=== PATIENT | male | born 1995 | race Caucasian/White ===

== ENCOUNTER → 2020-08-31 12:12 | Outpatient (BNVA) | payer OTHER, SELFPAY | PROVIDERS: PCP Internal Medicine; Visit Provider Physician Assistant ==

== ENCOUNTER 2020-10-02 00:15 | Emergency (ER) | payer OTHER, SELFPAY ==
[2020-10-02 00:23] VITALS: BP 133/81; PULSE 110; RESP 18; TEMP 37.6; O2SAT 97; BMI 24.1
--- NOTE | 2020-10-02 00:26 | ED.URI ---
HPI - URI/Sore Throat General Chief Complaint: General Medical Stated Complaint: FLU LIKE SYMPTOMS Time Seen by Provider: 10/02/20 00:22 Source: patient Mode of arrival: ambulatory Limitations: no limitations History of Present Illness HPI Narrative: 25 yo male hx of asthma here wtih 3 days of headaches, fevers, body aches, cough was COVID positive but asymptomatic in January MD elicited complaint: fever and cough Pertinent past history: asthma Onset (ago): day(s) (3) Consistency: constant Severity: moderate Description of mucous: clear Able to tolerate fluids by mouth: Yes Exacerbating factors: nothing Relieving factors: nothing Associated symptoms: fever, chills, myalgias, headache and cough Treatments prior to arrival: none Related Data Home Medications Medication Instructions Recorded Confirmed ondansetron 4 mg disintegrating 4 mg PO TID PRN 08/07/20 08/31/20 tablet sumatriptan succinate 25 mg tablet 25 mg PO 08/07/20 08/31/20 fluticasone propionate 110 1 puff INHALATION BID 08/11/20 08/31/20 mcg/actuation HFA aerosol inhaler Previous Rx's Medication Instructions Recorded montelukast 10 mg tablet 10 mg PO BEDTIME #30 tab 07/23/20 cetirizine 10 mg tablet 10 mg PO DAILY PRN #30 tab 08/11/20 fluticasone propionate 110 1 puff PO BID #12 g 08/11/20 mcg/actuation HFA aerosol inhaler methylcellulose (laxative) 500 mg 500 mg PO BID #60 tab 08/31/20 tablet albuterol sulfate 90 mcg/actuation 2 puff PO Q6H PRN #8.5 g 09/14/20 aerosol inhaler omeprazole 20 mg capsule,delayed 20 mg PO DAILY 30 Days #30 cap 09/14/20 release zolpidem 10 mg tablet 10 mg PO BEDTIME PRN 30 Days #30 09/14/20 tab lorazepam 1 mg tablet 1 mg PO DAILY PRN 30 Days #30 tab 09/25/20 Allergies Allergy/AdvReac Type Severity Reaction Status Date / Time methylprednisolone Allergy Unknown UNKNOWN Verified 10/02/20 00:26 [Methylprednisolone] Penicillins [PENICILLINS] Allergy Unknown RASH Verified 10/02/20 00:26 amitriptyline AdvReac Unknown increased Verified 10/02/20 00:26 headaches metoclopramide [From REGLAN] AdvReac Unknown RASH Verified 10/02/20 00:26 trazodone AdvReac Unknown increased Verified 10/02/20 00:26 headaches Review of Systems Review of Systems: Constitutional : positive Fever, positive Chills, positive fatigue, positive Malaise ENT/Mouth : no sore throat, positive runny nose Eyes: No Discharge Cardiovascular : No Chest Pain, No SOB Respiratory : pos Cough, No Sputum Gastrointestinal : No Nausea, No Vomiting, No Diarrhea Genitourinary : No Dysuria, No Urinary Frequency Musculoskeletal : positive Myalgia Skin : No rash Neuro : pos Headache [facility] Past Medical History Attestation statement: The following information was validated with the patient. Medical History Acid reflux Allergic rhinitis Anxiety Asthma Insomnia Intermittent abdominal pain Migraine Surgical History History of appendectomy Family History Family History (Updated 08/31/20 @ 12:11 by Deirdre Coy) Father Asthma Mother Fibromyalgia HTN (hypertension) Social History Social History Household Members: Family Alcohol intake: current Alcohol intake frequency: holidays/special occasions only Smoking Status: Never smoker Advance Directives: No Physical Exam Vital Signs: Vital Signs: Last Vital Signs Temp 99.6 F 10/02/20 00:23 Pulse 110 H 10/02/20 00:23 Resp 18 10/02/20 00:23 BP 133/81 10/02/20 00:23 Pulse Ox 97 10/02/20 00:23 Body Mass Index 24.1 Appearance: Alert. Oriented X3. No acute distress. Eyes: Pupils equal, round and reactive to light. ENT: Pharynx normal. Neck: Normal inspection. Neck supple. CVS: Normal heart rate and rhythm. Pulses normal. Respiratory: No respiratory distress. Breath sounds normal. Abdomen: Soft and nontender. Skin: Skin warm and dry. Normal skin color. Normal skin turgor. Extremities: No lower extremity edema. No calf ttp Neuro: Oriented X 3. No motor deficit. No sensory deficit. Course Course Course Narrative: patient called with his results aware they are negative MDM - URI/Sore Throat MDM Narrative Medical decision making narrative: 25 yo male with asthma here with headaches, body aches, fevers, cough x 3 days - hx of COVID in january, clear lungs, no hypoxia, tylenol and sars/flu/rsv test will call with results Lab Data Labs: Lab Results 10/02/20 Range/Units 00:35 Coronavirus (PCR) NEGATIVE (Negative) Influenza Type A (PCR) NEGATIVE (Negative) Influenza Type B (PCR) NEGATIVE (Negative) RSV RNA Qual (PCR) NEGATIVE (Negative) Discharge Plan Discharge Clinical Impression: Acute viral syndrome Patient Disposition: Home, Self-Care Instructions: Viral Syndrome (ED), COVID-19 (Coronavirus Disease 2019) (ED) Additional Instructions: return to ED for any worsening symptoms or concerns I will call you with your results Prescriptions: No Action montelukast 10 mg tablet 10 mg PO BEDTIME Qty: 30 RF: 3 Flovent HFA 110 mcg/actuation HFA aerosol inhaler 1 puff inhalation BID RF: 0 cetirizine 10 mg tablet 10 mg PO DAILY PRN (Reason: allergy symptoms) Qty: 30 RF: 5 fluticasone propionate [Flovent HFA] 110 mcg/actuation HFA aerosol inhaler 1 puff PO BID Qty: 12 RF: 0 zolpidem 10 mg tablet 10 mg PO BEDTIME PRN (Reason: insomnia) 30 Days Qty: 30 RF: 0 omeprazole 20 mg capsule,delayed release(DR/EC) 20 mg PO DAILY 30 Days Qty: 30 RF: 3 albuterol sulfate 90 mcg/actuation HFA aerosol inhaler 2 puff PO Q6H PRN (Reason: for wheezing) Qty: 8.5 RF: 1 lorazepam 1 mg tablet 1 mg PO DAILY PRN (Reason: anxiety) 30 Days Qty: 30 RF: 0 ondansetron 4 mg tablet,disintegrating 4 mg PO TID PRN (Reason: nausea/vomiting) RF: 0 sumatriptan succinate 25 mg tablet 25 mg PO RF: 0 Citrucel 500 mg tablet 500 mg PO BID Qty: 60 RF: 5 Stand Alone Forms: Work/School Release Interventions: ED Discharge Assessment Last Done: 10/02/20 00:51 Discharge Date/Time: 10/02/20 00:52
[2020-10-02] MEDS: Acetaminophen 325 MG TABLET 650 MG PO (00:52)
[2020-10-02 01:21] LABS: Influenza A PCR NEGATIVE (Negative); Influenza B PCR NEGATIVE (Negative); Resp Syncy Virus RNA Qual PCR NEGATIVE (Negative); SARS COV2 PCR INHOUSE NEGATIVE (Negative)
== END 2020-10-02 00:52 | disposition home or self-care (01) ==
LOC: HO.ED 00:43
PROVIDERS: Emergency Provider Emergency Medicine; PCP Internal Medicine
DX: B34.9 Viral infection, unspecified (principal); Z20.822 Contact with and (suspected) exposure to COVID-19; R50.9 Fever, unspecified; J45.909 Unspecified asthma, uncomplicated
CPT/HCPCS: 0241U; 36415; 99283

== ENCOUNTER 2020-12-19 14:16 | Emergency (ER) | payer OTHER, SELFPAY ==
--- NOTE | ~2020-12-19 | XR_ITS ---
EXAMINATION: XR CHEST CLINICAL INFORMATION: Shortness of breath COMPARISON: Previous chest x-ray December 2019 TECHNIQUE: Frontal view of the chest was obtained. FINDINGS: No significant abnormality is noted involving the heart, lungs, mediastinum, bony thorax or soft tissues. XR/XR chest 1V IMPRESSION: Unremarkable examination.
[2020-12-19 15:06] VITALS: BP 133/73; PULSE 100; RESP 16; TEMP 35.9; O2SAT 100; BMI 22.4
--- NOTE | 2020-12-19 16:57 | ED_ITS ---
HPI - Asthma General Chief Complaint: Asthma Stated Complaint: ASTHMA Time Seen by Provider: 12/19/20 16:56 Source: patient, RN notes reviewed and old records reviewed Mode of arrival: ambulatory Limitations: no limitations History of Present Illness HPI Narrative: 25-year-old male with past medical history of acid reflux, anxiety, insomnia, migraine, allergic rhinitis is here today for complaining of pain when taking a deep breath, postnasal drip. Reports that those symptoms started few days ago. Patient has a history of seasonal allergies. His symptoms include decreased renal inner aggravated by pollen. Denies fever or chills. Denies any exposure to COVID. Denies SOB, CP. Related Data Home Medications Medication Instructions Recorded Confirmed fluticasone propionate 110 1 puff INHALATION BID 08/11/20 08/31/20 mcg/actuation HFA aerosol inhaler Previous Rx's Medication Instructions Recorded montelukast 10 mg tablet 10 mg PO BEDTIME #30 tab 07/23/20 cetirizine 10 mg tablet 10 mg PO DAILY PRN #30 tab 08/11/20 methylcellulose (laxative) 500 mg 500 mg PO BID #60 tab 08/31/20 tablet albuterol sulfate 90 mcg/actuation 2 puff PO Q6H PRN #8.5 g 09/14/20 aerosol inhaler omeprazole 20 mg capsule,delayed 20 mg PO DAILY 30 Days #30 cap 09/14/20 release fluticasone propionate 110 1 puff PO BID 30 Days #12 g 10/11/20 mcg/actuation HFA aerosol inhaler sumatriptan succinate 25 mg tablet 25 mg PO .COMPLEX #10 tab 11/05/20 ondansetron 4 mg disintegrating 4 mg PO TID PRN 30 Days #90 tab 11/13/20 tablet lorazepam 1 mg tablet 1 mg PO DAILY PRN 30 Days #30 tab 12/06/20 zolpidem 10 mg tablet 10 mg PO BEDTIME PRN 30 Days #30 12/11/20 tab benzonatate [Tessalon Perles] 100 mg PO BID PRN #20 cap 12/19/20 fluticasone propionate [Aller-Alejandro] 1 spray INTRANASAL DAILY #16 g 12/19/20 Allergies Allergy/AdvReac Type Severity Reaction Status Date / Time methylprednisolone Allergy Unknown UNKNOWN Verified 10/02/20 00:26 [Methylprednisolone] Penicillins [PENICILLINS] Allergy Unknown RASH Verified 10/02/20 00:26 amitriptyline AdvReac Unknown increased Verified 10/02/20 00:26 headaches metoclopramide [From REGLAN] AdvReac Unknown RASH Verified 10/02/20 00:26 trazodone AdvReac Unknown increased Verified 10/02/20 00:26 headaches Review of Systems Review of Systems: Constitutional : No Weight loss, No Fever, No Chills, No Night Sweats, No Fatigue, No Malaise ENT/Mouth : No Hearing loss, No Ear Pain, No Nasal Congestion, No Sinus Pain, No Hoarseness, No sore throat, Rhinorrhea, No Swallowing Difficulty Eyes: No Eye Pain, No Swelling, No Redness, No Foreign Body, No Discharge, No Vision Changes Cardiovascular : No Chest Pain, No SOB, No Dyspnea on Exertion, No Orthopnea, No Edema, No Palpitations Respiratory : Cough, No Sputum, No Wheezing, No Smoke Exposure, No Dyspnea Gastrointestinal : No Nausea, No Vomiting, No Diarrhea, No Constipation, No abdominal Pain, No Hematochezia, No Melena Genitourinary : no irregular bleeding, No Dysuria, No Urinary Frequency, No Hematuria, No Urinary Incontinence, No Urgency, No Flank Pain, No Urinary Flow Changes, No Hesitancy Musculoskeletal : No joint pain, No Myalgias, No Joint Swelling Skin : No Skin Lesions, No rash Neuro : No Weakness, No Numbness, No Paresthesias, No Loss of Consciousness, No Dizziness, No Headache Psych : No Anxiety/Panic, No Depression, No SI/HI/AH/VH, No Social Issues, Heme/Lymph: No Bruising, No Bleeding,No Lymphadenopathy Endocrine : No Polyuria, No Polydipsia, No Temperature Intolerance Yes all o ther systems are reviewed and are negative [facility] Past Medical History Medical History Acid reflux Allergic rhinitis Anxiety Asthma Insomnia Intermittent abdominal pain Migraine Surgical History History of appendectomy Family History Family History (Updated 08/31/20 @ 12:11 by LUIS FELIPE Aceves) Father Asthma Mother Fibromyalgia HTN (hypertension) Social History Social History Household Members: Family Alcohol intake: never Smoking Status: Never smoker Use of substances other than those prescribed or required for medical reasons: No Advance Directives: No Advance Directives Information Provided: Yes Physical Exam Vital Signs: Vital Signs: Last Vital Signs Temp 97.6 F 12/19/20 17:08 Pulse 85 12/19/20 17:08 Resp 16 12/19/20 17:08 BP 122/67 12/19/20 17:08 Pulse Ox 98 12/19/20 17:08 Body Mass Index 22.4 Const: General: healthy appearing, no acute distress and well developed Nutritional Appearance: well nourished Orientation/consciousness: patient oriented x3 HENMT: Head: Yes normal to inspection and Yes normocephalic Ears: external ears normal and TM's normal bilaterally General nose exam: Normal external nose present, Normal nares present and Normal nasal mucous membranes and turbinates present Face and sinus: Yes sinuses nontender and Yes face symmetric Mouth: tongue normal, oropharynx normal and moist mucous membranes Throat: Yes posterior oropharynx normal, Yes tonsils normal and Yes uvula midline Neck: Neck: Yes normal visual inspection, Yes full ROM and Yes trachea midline Thyroid: Thyroid normal Resp: Auscultation: clear to auscultation bilaterally Cardio: Rate: regular rate Rhythm: regular rhythm GI: Inspection: Yes normal to inspection and No distended Palpation (GI): No hepatosplenomegaly present Auscultation: normal bowel sounds Skin: General skin exam: elasticity normal, turgor normal and dry skin Neuro: General: patient oriented x3 Course Course Course Narrative: 25-year-old with past medical history of acid reflux, anxiety, insomnia, migraine headaches, allergic rhinitis and asthma here for complaints of shortness of breath, pain with deep inspiration Reevaluation(s) Reevaluation #1: Chest x-ray normal. Will do COVID testing and if that is normal will send him home with script for Tessalon Perles and Flonase. Patient is agreeable to plan of care, awaiting results from COVID test Reevaluation #2: COVID test negative, lung sounds clear no change in patient's condition. Will send him home as mentioned above with Tessalon Perles and Flonase. Patient was educated on how to take the medications. He verbalizes understanding and is agreeable to plan of care. He was given the opportunity to ask questions and all questions answered. MDM - Asthma Lab Data Labs: Lab Results 12/19/20 Range/Units 17:06 Coronavirus (PCR) NEGATIVE (Negative) Influenza Type A (PCR) NEGATIVE (Negative) Influenza Type B (PCR) NEGATIVE (Negative) RSV RNA Qual (PCR) NEGATIVE (Negative) Imaging Data Chest x-ray: Radiologist's impression: FINDINGS: No significant abnormality is noted involving the heart, lungs, mediastinum, bony thorax or soft tissues. XR/XR chest 1V IMPRESSION: Unremarkable examination. Discharge Plan Discharge Clinical Impression: Allergic rhinitis Qualifiers: Allergic rhinitis trigger: pollen Allergic rhinitis seasonality: seasonal Qualified Code(s): J30.1 - Allergic rhinitis due to pollen Asthma Qualifiers: Asthma severity: mild Asthma persistence: unspecified Asthma complication type: uncomplicated Qualified Code(s): J45.909 - Unspecified asthma, uncomplicated Patient Disposition: Home, Self-Care Instructions: Asthma (ED), Allergic Rhinitis (ED) Additional Instructions: You were seen here today for complaints of shortness of breath and cold-like symptoms. Your chest x-ray is negative. Your COVID test is negative. You are sent home with a script for Flonase and Tessalon Perles. Please take it as ordered. Please follow-up with your primary care physician in 2-3 days. You may return to emergency department if you symptoms will get worse or if you experience any additional concerning symptoms Prescriptions: New benzonatate [Tessalon Perles] 100 mg capsule 100 mg PO BID PRN (Reason: cough) Qty: 20 RF: 0 fluticasone propionate [Aller-Alejandro] 50 mcg/actuation spray,suspension 1 spray intranasal DAILY Qty: 16 RF: 0 No Action montelukast 10 mg tablet 10 mg PO BEDTIME Qty: 30 RF: 3 Flovent HFA 110 mcg/actuation HFA aerosol inhaler 1 puff inhalation BID RF: 0 cetirizine 10 mg tablet 10 mg PO DAILY PRN (Reason: allergy symptoms) Qty: 30 RF: 5 omeprazole 20 mg capsule,delayed release(DR/EC) 20 mg PO DAILY 30 Days Qty: 30 RF: 3 albuterol sulfate 90 mcg/actuation HFA aerosol inhaler 2 puff PO Q6H PRN (Reason: for wheezing) Qty: 8.5 RF: 1 Flovent HFA 110 mcg/actuation HFA aerosol inhaler 1 puff PO BID 30 Days Qty: 12 RF: 5 sumatriptan succinate 25 mg tablet 25 mg PO .COMPLEX Qty: 10 RF: 5 ondansetron 4 mg tablet,disintegrating 4 mg PO TID PRN (Reason: nausea/vomiting) 30 Days Qty: 90 RF: 1 lorazepam 1 mg tablet 1 mg PO DAILY PRN (Reason: anxiety) 30 Days Qty: 30 RF: 0 zolpidem 10 mg tablet 10 mg PO BEDTIME PRN (Reason: insomnia) 30 Days Qty: 30 RF: 0 Citrucel 500 mg tablet 500 mg PO BID Qty: 60 RF: 5 Interventions: ED Discharge Assessment Last Done: 12/19/20 19:09 Discharge Date/Time: 12/19/20 19:10
[2020-12-19] MEDS: Ibuprofen 600 MG TABLET PO (17:07)
[2020-12-19 17:08] VITALS: BP 122/67; PULSE 85; RESP 16; TEMP 36.4; O2SAT 98
[2020-12-19 17:53] LABS: Influenza A PCR NEGATIVE (Negative); Influenza B PCR NEGATIVE (Negative); Resp Syncy Virus RNA Qual PCR NEGATIVE (Negative); SARS COV2 PCR INHOUSE NEGATIVE (Negative)
== END 2020-12-19 19:10 | disposition home or self-care (01) ==
PROVIDERS: Nurse Practitioner Family; Emergency Provider Internal Medicine; PCP Internal Medicine
DX: J45.909 Unspecified asthma, uncomplicated (principal); J30.1 Allergic rhinitis due to pollen; Z20.822 Contact with and (suspected) exposure to COVID-19
CPT/HCPCS: 0241U; 36415; 71045; 99283; 99284

== ENCOUNTER 2020-12-27 11:49 | Outpatient (REF) | payer OTHER, SELFPAY ==
[2020-12-27 13:04] LABS: MANUAL DIFF FLAG NO
[2020-12-27 13:09] LABS: Basophils Percent Auto 0.3 % (0-2); Eosinophils Percent Auto 0.4 % (0-4); Hematocrit 45.9 % (42-52); Hemoglobin 15.5 g/dl (14.0-18.0); Imm Gran Abs Auto 0.01 X10*3/uL (0.00-0.03); Imm Gran Pct Auto 0.1 % (0.0-0.4); Lymphocytes Absolute Auto 2.6 X10*3/uL (1.2-4.9); Mean Corpuscular HGB Conc 33.8 g/dl (31.0-36.0); Monocytes Absolute Auto 0.5 X10*3/uL (0.1-1.2); Monocytes Percent Auto 6.4 % (2-11); Neutrophils Absolute Auto 4.3 X10*3/uL (2.0-8.3); Neutrophils Percent Auto 57.8 % (45-73); Platelet Count 272 X10*3/uL (160-400); Red Blood Count 5.34 X10*6/uL (4.60-5.80); White Blood Count 7.4 X10*3/uL (4.8-10.8)
[2020-12-27 13:17] LABS: Glucose Urine UA NEG (NEG); Leukocyte Esterase Urine NEG (NEG); Nitrite Urine NEG (NEG); Specific Gravity - Urine >= 1.030 (1.005-1.025); Urine Blood TRACE (NEG); Urine Ketones NEG (NEG); Urine Protein NEG (NEG-TRACE)
[2020-12-27 13:18] LABS: Appearance Urine CLEAR; Color Urine YELLOW
[2020-12-27 13:59] LABS: Alanine Aminotransferase 30 U/L (0-40); Alkaline Phosphatase 111 U/L (39-117); Anion Gap 14 (12-20); Aspartate Amino Transferase 20 U/L (5-37); Bilirubin Total 0.8 mg/dL (0.0-1.0); Blood Urea Nitrogen 10 mg/dL (9-16); Calcium 10.1 mg/dL (8.4-10.2); Carbon Dioxide 27 mmol/L (22-29); Chloride 102 mmol/L (96-108); Cholesterol 228 mg/dL; Estimated Glomerular Filt Rate > 60; Glucose Fasting 78 mg/dL (60-99); HDL Cholesterol 49 mg/dL; LDL Cholesterol Calculated 162 mg/dl; Sodium 139 mmol/L (135-145); Total Protein 8.1 g/dL (6.5-8.0); Triglycerides 85 mg/dL
[2020-12-27 14:02] LABS: Mucus Urine 1+ /LPF; RBC Urine 0-2 /HPF (0); WBC Urine 0-2 /HPF (0-4)
[2020-12-27 14:14] LABS: Erythrocyte Sedimentation Rate 4 MM/HR (0-15)
[2020-12-27 14:21] LABS: TSH reflex Free T4 3.05 uIU/mL (0.32-4.0)
== END 2020-12-27 11:50 | disposition home or self-care (01) ==
LOC: HO.LAB 11:49
PROVIDERS: Absent Provider Physician Assistant; PCP Internal Medicine; Visit Provider Internal Medicine
DX: Z00.00 Encounter for general adult medical examination without abnormal findings (principal); E78.00 Pure hypercholesterolemia, unspecified; R19.7 Diarrhea, unspecified; R10.11 Right upper quadrant pain; I10 Essential (primary) hypertension
CPT/HCPCS: 36415; 80053; 80061; 81001; 81003; 84443; 85025; 85652

== ENCOUNTER 2020-12-29 02:22 | Emergency (ER) | payer OTHER, SELFPAY ==
[2020-12-29 02:43] VITALS: BP 136/68; PULSE 83; RESP 16; TEMP 35.9; O2SAT 98; BMI 22.5
[2020-12-29 04:00] VITALS: RESP 18
--- NOTE | 2020-12-29 04:21 | ED.EAR ---
HPI - Ear Problem General Chief complaint: Ear Problems Stated complaint: Ear pain Time Seen by Provider: 12/29/20 04:21 Source: patient Mode of arrival: ambulatory History of Present Illness HPI Narrative: This is a 25-year-old male who presents with decreased hearing in the left ear and known cerumen who saw his primary care provider earlier in the day yesterday and was prescribed murine 6.5% ear solution. He states that he used it a number of times in both ears and had complete resolution of the problem in his right ear, but continues to have difficulty with the left ear. He denies any dizziness, fevers, chills, or left ear pain. Related Data Previous Rx's Medication Instructions Recorded cetirizine 10 mg tablet 10 mg PO DAILY PRN #30 tab 08/11/20 methylcellulose (laxative) 500 mg 500 mg PO BID #60 tab 08/31/20 tablet omeprazole 20 mg capsule,delayed 20 mg PO DAILY 30 Days #30 cap 09/14/20 release fluticasone propionate 110 1 puff PO BID 30 Days #12 g 10/11/20 mcg/actuation HFA aerosol inhaler sumatriptan succinate 25 mg tablet 25 mg PO .COMPLEX #10 tab 11/05/20 lorazepam 1 mg tablet 1 mg PO DAILY PRN 30 Days #30 tab 12/06/20 zolpidem 10 mg tablet 10 mg PO BEDTIME PRN 30 Days #30 12/11/20 tab benzonatate [Tessalon Perles] 100 mg PO BID PRN #20 cap 12/19/20 fluticasone propionate [Aller-Alejandro] 1 spray INTRANASAL DAILY #16 g 12/19/20 albuterol sulfate 90 mcg/actuation 2 puff PO Q6H PRN #8.5 g 12/22/20 aerosol inhaler montelukast 10 mg tablet 10 mg PO DAILY #30 tab 12/22/20 carbamide peroxide 6.5 % ear drops 5 drp OTIC (EARS) DAILY 7 Days #18 12/27/20 ml ondansetron 4 mg disintegrating 4 mg PO TID PRN 30 Days #90 tab 12/27/20 tablet Allergies Allergy/AdvReac Type Severity Reaction Status Date / Time methylprednisolone Allergy Unknown UNKNOWN Verified 12/27/20 16:47 [Methylprednisolone] Penicillins [PENICILLINS] Allergy Unknown RASH Verified 12/27/20 16:47 amitriptyline AdvReac Unknown increased Verified 12/27/20 16:47 headaches metoclopramide [From REGLAN] AdvReac Unknown RASH Verified 12/27/20 16:47 trazodone AdvReac Unknown increased Verified 12/27/20 16:47 headaches Review of Systems Review of Systems: Pertinent positives and negatives as stated in HPI 10 point review of systems is otherwise negative. [facility], [facility] Past Medical History Source: nursing notes reviewed Medical History Acid reflux Allergic rhinitis Anxiety Asthma Impacted cerumen of both ears Insomnia Intermittent abdominal pain Migraine Surgical History History of appendectomy Family History Family History Father Asthma Mother Fibromyalgia HTN (hypertension) Social History Social History Household Members: Family Alcohol intake: never Patient Tobacco Use Status: Never used Tobacco Advance Directives: No Advance Directives Information Provided: No Physical Exam Vital Signs: Vital Signs: Last Vital Signs Temp 96.7 F L 12/29/20 02:43 Pulse 83 12/29/20 02:43 Resp 16 12/29/20 02:43 BP 136/68 12/29/20 02:43 Pulse Ox 98 12/29/20 02:43 Body Mass Index 22.5 VITAL SIGNS: Reviewed. GENERAL: Well developed, well nourished, in no acute distress. HEAD: Normocephalic/atraumatic EYES: PERRLA, EOMI EARS: Ext canals without abnormality other than left with cerumen unable to evaluate TM on left ear NOSE: Nares patent bilateral OROPHARYNX: no oral lesions noted, posterior pharynx clear NECK: Supple, no adenopathy LUNGS: Normal breath sounds. No adventitious sounds or accessory muscle use. SpO2<98> CARDIOVASCULAR: Regular rate and rhythm without noted murmurs ABDOMEN: Soft, non-tender, non-distended with bowel sounds. Course Course Course Narrative: 25-year-old male with history and clinical presentation consistent with cerumen of the left ear and subsequent decrease in hearing. Patient was strongly encouraged and reassured that he should continue the murine solution as prescribed by his primary care provider over the weekend and pursue re-evaluation by his PCP on Friday if he does not have any resolution. Discharge Plan Discharge Clinical Impression: Impacted cerumen of left ear Patient Disposition: Home, Self-Care Additional Instructions: 1. Please continue to use the Murine 6.5% solution as instructed by your PCP. 2. Please seek re-evaluation by her PCP on Friday morning if the cerumen from your left ear has not been relieved. Return to the ER for any acute worsening of symptoms. Prescriptions: No Action cetirizine 10 mg tablet 10 mg PO DAILY PRN (Reason: allergy symptoms) Qty: 30 RF: 5 omeprazole 20 mg capsule,delayed release(DR/EC) 20 mg PO DAILY 30 Days Qty: 30 RF: 3 Flovent HFA 110 mcg/actuation HFA aerosol inhaler 1 puff PO BID 30 Days Qty: 12 RF: 5 sumatriptan succinate 25 mg tablet 25 mg PO .COMPLEX Qty: 10 RF: 5 lorazepam 1 mg tablet 1 mg PO DAILY PRN (Reason: anxiety) 30 Days Qty: 30 RF: 0 zolpidem 10 mg tablet 10 mg PO BEDTIME PRN (Reason: insomnia) 30 Days Qty: 30 RF: 0 albuterol sulfate [ProAir HFA] 90 mcg/actuation HFA aerosol inhaler 2 puff PO Q6H PRN (Reason: for wheezing) Qty: 8.5 RF: 1 montelukast 10 mg tablet 10 mg PO DAILY Qty: 30 RF: 2 benzonatate [Tessalon Perles] 100 mg capsule 100 mg PO BID PRN (Reason: cough) Qty: 20 RF: 0 fluticasone propionate [Aller-Alejandro] 50 mcg/actuation spray,suspension 1 spray intranasal DAILY Qty: 16 RF: 0 ondansetron 4 mg tablet,disintegrating 4 mg PO TID PRN (Reason: nausea/vomiting) 30 Days Qty: 90 RF: 1 carbamide peroxide [Debrox] 6.5 % drops 5 drp otic (ears) DAILY 7 Days Qty: 18 RF: 2 Citrucel 500 mg tablet 500 mg PO BID Qty: 60 RF: 5 Referrals: Jovan Mac MD [Primary Care Provider] - 2 days
== END 2020-12-29 05:24 | disposition home or self-care (01) ==
PROVIDERS: Emergency Provider Student in an Organized Health Care Education/Training Program; PCP Internal Medicine
DX: H61.22 Impacted cerumen, left ear (principal); J45.909 Unspecified asthma, uncomplicated; F41.9 Anxiety disorder, unspecified; Z79.899 Other long term (current) drug therapy
CPT/HCPCS: 99282; 99283

== ENCOUNTER 2021-01-27 23:02 | Emergency (ER) | payer OTHER, SELFPAY ==
--- NOTE | ~2021-01-27 | CT_ITS ---
EXAMINATION: CT HEAD WITHOUT CONTRAST CLINICAL INFORMATION: Ear pain. Tinnitus. Lightheaded. Hearing changes. COMPARISON: 08/30/2014 TECHNIQUE: Contiguous axial imaging was performed from the skull base to vertex without intravenous contrast. This CT examination was performed using dose optimization techniques as appropriate, variously including the following: * Automated exposure control * Adjustment of mA and/or kV according to patient size (this includes techniques or standardized protocols for targeted exams where dose is matched to indication/reason for exam; i.e. extremities or head) Use of iterative reconstruction technique DLP: 756 mGy-cm. FINDINGS: There is no evidence of acute intracranial hemorrhage or territorial infarction. No abnormal mass effect or midline shift is seen. Hinkle to white matter differentiation is well preserved. No extra-axial fluid collections are identified. No hydrocephalus. No significant volume loss. There is no abnormal attenuation within the brain parenchyma. The osseous structures and soft tissues are normal. The mastoid air cells and visualized portions of the paranasal sinuses are well aerated. CT/CT head/brain wo con IMPRESSION: No acute intracranial pathology.
[2021-01-27 23:33] VITALS: BP 131/70; PULSE 90; RESP 18; TEMP 37.4; O2SAT 98; BMI 22.8
--- NOTE | 2021-01-28 01:38 | ED.EAR ---
HPI - Ear Problem General Chief complaint: Ear Problems Stated complaint: ear pain/headache Time Seen by Provider: 01/28/21 01:21 Source: patient Mode of arrival: ambulatory History of Present Illness HPI Narrative: This is a 26-year-old male with presentation for complaints of 2-3 months of persistent, intermittent ear pain that is not associated with time of day or activity and is also accompanied by tinnitus And then develops corresponding right-sided head pain and associated lightheadedness but denies any visual or speech changes and denies any gait instability. Patient denies any tick exposure or fever/chills Related Data Previous Rx's Medication Instructions Recorded cetirizine 10 mg tablet 10 mg PO DAILY PRN #30 tab 08/11/20 methylcellulose (laxative) 500 mg 500 mg PO BID #60 tab 08/31/20 tablet fluticasone propionate 110 1 puff PO BID 30 Days #12 g 10/11/20 mcg/actuation HFA aerosol inhaler sumatriptan succinate 25 mg tablet 25 mg PO .COMPLEX #10 tab 11/05/20 benzonatate [Tessalon Perles] 100 mg PO BID PRN #20 cap 12/19/20 fluticasone propionate [Aller-Alejandro] 1 spray INTRANASAL DAILY #16 g 12/19/20 albuterol sulfate 90 mcg/actuation 2 puff PO Q6H PRN #8.5 g 12/22/20 aerosol inhaler montelukast 10 mg tablet 10 mg PO DAILY #30 tab 12/22/20 carbamide peroxide 6.5 % ear drops 5 drp OTIC (EARS) DAILY 7 Days #18 12/27/20 ml ondansetron 4 mg disintegrating 4 mg PO TID PRN 30 Days #90 tab 12/27/20 tablet lorazepam 1 mg tablet 1 mg PO DAILY PRN 30 Days #30 tab 01/08/21 zolpidem 10 mg tablet 10 mg PO BEDTIME PRN 30 Days #30 01/08/21 tab omeprazole 20 mg capsule,delayed 20 mg PO DAILY #90 cap 01/20/21 release Allergies Allergy/AdvReac Type Severity Reaction Status Date / Time methylprednisolone Allergy Unknown UNKNOWN Verified 01/27/21 23:33 [Methylprednisolone] Penicillins [PENICILLINS] Allergy Unknown RASH Verified 01/27/21 23:33 amitriptyline AdvReac Unknown increased Verified 01/27/21 23:33 headaches metoclopramide [From REGLAN] AdvReac Unknown RASH Verified 01/27/21 23:33 trazodone AdvReac Unknown increased Verified 01/27/21 23:33 headaches Review of Systems Review of Systems: Pertinent positives and negatives as stated in HPI 10 point review of systems is otherwise negative. [facility] Past Medical History Source: nursing notes reviewed Medical History Acid reflux Allergic rhinitis Anxiety Asthma Impacted cerumen of both ears Insomnia Intermittent abdominal pain Migraine Surgical History History of appendectomy Family History Family History Father Asthma Mother Fibromyalgia HTN (hypertension) Social History Social History Household Members: Family Alcohol intake: never Patient Tobacco Use Status: Never used Tobacco Advance Directives: No Advance Directives Information Provided: No Physical Exam Vital Signs: Vital Signs: Last Vital Signs Temp 97.8 F 01/28/21 02:36 Pulse 89 01/28/21 02:36 Resp 18 01/28/21 02:36 BP 122/65 01/28/21 02:36 Pulse Ox 97 01/28/21 02:36 Body Mass Index 22.8 VITAL SIGNS: Reviewed. GENERAL: Well developed, well nourished, in no acute distress. HEAD: Normocephalic/atraumatic EYES: PERRLA, EOMI intact without pain, no nystagmus EARS: Ext canals without abnormality, TMs non-bulging and non-erythematous NOSE: Nares patent bilateral OROPHARYNX: no oral lesions noted, posterior pharynx clear and non-erythematous without noted tonsillar enlargement/erythema/exudates NECK: Supple, no adenopathy LUNGS: Normal breath sounds. No adventitious sounds or accessory muscle use. SpO2<98> CARDIOVASCULAR: Regular rate and rhythm without noted murmurs ABDOMEN: Soft, non-tender, non-distended with bowel sounds. MUSCULOSKELETAL: No tenderness, deformities, or effusions noted on gross inspection. EXTREMITIES: No cyanosis, clubbing or edema. SKIN: Inspection of the skin reveals no rashes NEUROLOGIC: Alert and oriented x 4. Strength and sensation to light touch were grossly intact x 4, no facial asymmetry, no pronator drift, no gait instability. Course Course Course Narrative: This is a 26-year-old male who has been evaluated by ENT, his primary care provider, as well as being seen here twice in the emergency room for consistent symptoms. Will evaluate with ESR, CRP, CT head although low clinical suspicion for acoustic neuroma Or giant cell arteritis. Review of all investigations negative for any acute findings, patient was strongly encouraged to follow-up with his primary care provider as well as his ENT specialist. MDM - Ear Lab Data Labs: Lab Results 01/28/21 01/28/21 Range/Units 02:03 02:03 ESR 2 (0-15) MM/HR C-Reactive Protein 0.05 (< or = 0.50) mg/dL Discharge Plan Discharge Clinical Impression: Ear pain, right, Tinnitus Patient Disposition: Home, Self-Care Instructions: Tinnitus (ED), Earache (ED) Additional Instructions: 1. Tylenol 1000 mg, orally, every 6 hours as needed for pain and headache control. Do not exceed 4000 mg within 24 hours. 2. Ibuprofen 400 mg, orally with milk or food, every 6 hours as needed for pain and headache control. 3. Please follow-up with your primary care provider as well as your ENT specialist for re-evaluation and further outpatient management. Return to the ER for acute worsening of your symptoms. Prescriptions: No Action cetirizine 10 mg tablet 10 mg PO DAILY PRN (Reason: allergy symptoms) Qty: 30 RF: 5 Flovent HFA 110 mcg/actuation HFA aerosol inhaler 1 puff PO BID 30 Days Qty: 12 RF: 5 sumatriptan succinate 25 mg tablet 25 mg PO .COMPLEX Qty: 10 RF: 5 albuterol sulfate [ProAir HFA] 90 mcg/actuation HFA aerosol inhaler 2 puff PO Q6H PRN (Reason: for wheezing) Qty: 8.5 RF: 1 montelukast 10 mg tablet 10 mg PO DAILY Qty: 30 RF: 2 zolpidem 10 mg tablet 10 mg PO BEDTIME PRN (Reason: insomnia) 30 Days Qty: 30 RF: 0 lorazepam 1 mg tablet 1 mg PO DAILY PRN (Reason: anxiety) 30 Days Qty: 30 RF: 0 omeprazole 20 mg capsule,delayed release(DR/EC) 20 mg PO DAILY Qty: 90 RF: 3 benzonatate [Tessalon Perles] 100 mg capsule 100 mg PO BID PRN (Reason: cough) Qty: 20 RF: 0 fluticasone propionate [Aller-Alejandro] 50 mcg/actuation spray,suspension 1 spray intranasal DAILY Qty: 16 RF: 0 ondansetron 4 mg tablet,disintegrating 4 mg PO TID PRN (Reason: nausea/vomiting) 30 Days Qty: 90 RF: 1 carbamide peroxide [Debrox] 6.5 % drops 5 drp otic (ears) DAILY 7 Days Qty: 18 RF: 2 Citrucel 500 mg tablet 500 mg PO BID Qty: 60 RF: 5 Referrals: Jovan Mac MD [Primary Care Provider] - 2 days ( Re-evaluation and treatment for patient who presents with chronic ear pain, tinnitus, lightheadedness and evaluated in the ER with negative CT scan / ESR /CRP, no evidence for cerumen impaction.)
[2021-01-28 02:33] LABS: C Reactive Protein 0.05 mg/dL (< or = 0.50)
[2021-01-28 02:36] VITALS: BP 122/65; PULSE 89; RESP 18; TEMP 36.6; O2SAT 97
[2021-01-28 03:04] LABS: Erythrocyte Sedimentation Rate 2 MM/HR (0-15)
== END 2021-01-28 03:20 | disposition home or self-care (01) ==
PROVIDERS: Emergency Provider Student in an Organized Health Care Education/Training Program; PCP Internal Medicine
DX: H92.01 Otalgia, right ear (principal); H93.11 Tinnitus, right ear
CPT/HCPCS: 36415; 70450; 85652; 86140; 99284

== ENCOUNTER 2021-08-29 05:37 | Emergency (ER) | payer OTHER, SELFPAY ==
--- NOTE | ~2021-08-29 | XR_ITS ---
EXAMINATION: XR CHEST CLINICAL INFORMATION: Dyspnea COMPARISON: 09/21/2020 TECHNIQUE: Frontal view of the chest was obtained. FINDINGS: The lungs are clear with no focal consolidation. No evidence of pneumothorax, pulmonary edema, or pleural effusions. The cardiomediastinal silhouette is unremarkable. No acute osseous findings. XR/XR chest 1V IMPRESSION: No acute cardiopulmonary findings.
[2021-08-29 05:42] VITALS: BP 136/80; PULSE 106; RESP 14; TEMP 36.8; O2SAT 98; BMI 24.4
--- NOTE | 2021-08-29 05:45 | ECG_ITS ---
Test Reason : CP Blood Pressure : / mmHG Vent. Rate : 097 BPM Atrial Rate : 097 BPM P-R Int : 128 ms QRS Dur : 094 ms QT Int : 338 ms P-R-T Axes : 067 095 059 degrees QTc Int : 429 ms Normal sinus rhythm Rightward axis Borderline ECG When compared with ECG of 06-FEB-2020 15:56, No significant change was found Referred By: Jami Lo Electronically Signed By:DAYANARA LING
--- NOTE | 2021-08-29 05:49 | ED_ITS ---
HPI - Chest Pain General Chief Complaint: Chest Pain Stated Complaint: Chest pressure Time Seen by Provider: 08/29/21 05:46 Source: patient Mode of arrival: ambulatory Limitations: no limitations History of Present Illness HPI narrative: Patient comes emergency room complaining of 15 minutes of chest pressure. Patient has no chest pain, patient states he has history of reflux. Patient denies shortness of breath, no calf pain. Related Data Previous Rx's Medication Instructions Recorded methylcellulose (laxative) 500 mg 500 mg PO BID #60 tab 08/31/20 tablet (Citrucel) fluticasone propionate 50 1 spray INTRANASAL DAILY #16 g 12/19/20 mcg/actuation nasal spray,suspension (Aller-Alejandro) omeprazole 20 mg capsule,delayed 20 mg PO DAILY #90 cap 01/20/21 release fluticasone propionate 110 1 puff PO BID #12 ea 04/19/21 mcg/actuation HFA aerosol inhaler (Flovent HFA) sumatriptan succinate 25 mg tablet 25 mg PO .COMPLEX #10 tab 04/28/21 ProAir HFA 90 mcg/actuation 2 puff INHALATION Q6H PRN #8.5 g 05/18/21 NS aerosol inhaler (albuterol sulfate) ondansetron 4 mg disintegrating 4 mg PO TID PRN #30 tab 05/18/21 tablet montelukast 10 mg tablet 10 mg PO DAILY #90 tab 07/09/21 cetirizine 10 mg tablet 10 mg PO DAILY PRN #30 tab 07/13/21 zolpidem 10 mg tablet 10 mg PO BEDTIME PRN 30 Days #30 08/20/21 tab Allergies Allergy/AdvReac Type Severity Reaction Status Date / Time methylprednisolone Allergy Unknown UNKNOWN Verified 08/29/21 05:42 [Methylprednisolone] Penicillins Allergy Unknown RASH Verified 08/29/21 05:42 [PENICILLINS] amitriptyline AdvReac Unknown increased Verified 08/29/21 05:42 headaches metoclopramide [From AdvReac Unknown RASH Verified 08/29/21 05:42 REGLAN] trazodone AdvReac Unknown increased Verified 08/29/21 05:42 headaches Review of Systems Verdana 4l Review of Systems: Verdana 4d Verdana 4d Constitutional : No Weight loss, No Fever, No Chills, No Night Sweats, No Fatigue, No Malaise ENT/Mouth : No Hearing loss, No Ear Pain, No Nasal Congestion, No Sinus Pain, No Hoarseness, No sore throat, No Rhinorrhea, No Swallowing DifficultyDifficulty Eyes: No Eye Pain, No Swelling, No Redness, No Foreign Body, No Discharge, No Vision Changes Cardiovascular : Chest pressure with no Chest Pain, No SOB, No Dyspnea on Exertion, No Orthopnea, No Edema, No Palpitations Respiratory : No Cough, No Sputum, No Wheezing, No Smoke Exposure, No Dyspnea Gastrointestinal : No Nausea, No Vomiting, No Diarrhea, No Constipation, No abdominal Pain, No Hematochezia, No Melena Genitourinary : no irregular bleeding, No Dysuria, No Urinary Frequency, No Hematuria, No Urinary Incontinence, No Urgency, No Flank Pain, No Urinary Flow Changes, No Hesitancy Musculoskeletal : No joint pain, No Myalgias, No Joint Swelling Skin : No Skin Lesions, No rash Neuro : No Weakness, No Numbness, No Paresthesias, No Loss of Consciousness, No Dizziness, No Headache Psych : Patient has history of anxiety, No Depression, No SI/HI/AH/VH, No Social Issues, Heme/Lymph: No Bruising, No Bleeding,No Lymphadenopathy Endocrine : No Polyuria, No Polydipsia, No Temperature Intolerance PMFSH Past Medical History Medical History Acid reflux Allergic rhinitis Anxiety Asthma Impacted cerumen of both ears Insomnia Intermittent abdominal pain Migraine Pure hypercholesterolemia Surgical History History of appendectomy Family History Family History Father Asthma Mother Fibromyalgia HTN (hypertension) Social History Social History Household Members: Family Housing: House Alcohol intake: never Patient Tobacco Use Status: Never used Tobacco Second Hand Smoke Exposure: Yes service: No Current occupational status: unemployed Physical Exam Verdana 4l Vital Signs: Verdana 4d Verdana 4d Vital Signs: Verdana 4d Verdana 4Bd Last Vital Signs Verdana 4d Lumite Injector New 4d Lumite Injector New 4d Temp 98.3 F 08/29/21 05:42 Lumite Injector New 4d Pulse 106 H 02/02/22 05:42 Lumite Injector New 4d Resp 14 08/29/21 05:42 BP 136/80 08/29/21 05:42 Pulse Ox 98 08/29/21 05:42 BMI result Body Mass Index 24.4 Const: Other: Appearance: Alert. Oriented X3. No acute distress. Anxious Eyes: Pupils equal, round and reactive to light. ENT: Pharynx normal. Neck: Normal inspection. Neck supple. No lymph nodes noted. No crepitus CVS: Normal heart rate and rhythm. Pulses normal. Normal S1 and S2 Respiratory: No respiratory distress. Breath sounds normal. No Wheezing. No rales Abdomen: Soft and nontender. No rigidity. No distention Skin: Skin warm and dry. Normal skin color. Normal skin turgor. Extremities: No lower extremity edema. No Lacerations. No Rash Neuro: Oriented X 3. No motor deficit. No sensory deficit. Moving all extermities. No slurred speech. Course Course Course Narrative: EKG within normal limits. Anxiety is most likely the cause. Troponin pending. sign out given to Dr. Jaramillo [facility] - Chest Pain Lab Data Labs: Lab Results 08/29/21 Range/Units 05:50 COVID-19 (DARLYN) Negative (Negative) COVID-19 Clin Com See Note Discharge Plan Discharge Clinical Impression: Anxiety Patient Disposition: Home, Self-Care Instructions: Anxiety (ED) Additional Instructions: Please follow-up with your primary care physician tomorrow. If you have any worsening or new symptoms, please return to the emergency room or call 911 Prescriptions: No Action omeprazole 20 mg capsule,delayed release(DR/EC) 20 mg PO DAILY Qty: 90 3RF Flovent HFA 110 mcg/actuation HFA aerosol inhaler 1 puff PO BID Qty: 12 5RF sumatriptan succinate 25 mg tablet 25 mg PO .COMPLEX Qty: 10 5RF Rx Instructions: TAKE 1 TABLET BY MOUTH EVERY DAY FOR MIGRAINES MAY REPEAT AFTER 2 HOURS ondansetron 4 mg tablet,disintegrating 4 mg PO TID PRN (Reason: for nausea/vomiting) Qty: 30 5RF albuterol sulfate [ProAir HFA] 90 mcg/actuation HFA aerosol inhaler 2 puff inhalation Q6H PRN (Reason: for wheezing) Qty: 8.5 3RF cetirizine 10 mg tablet 10 mg PO DAILY PRN (Reason: for allergies) Qty: 30 5RF zolpidem 10 mg tablet 10 mg PO BEDTIME PRN (Reason: insomnia) 30 Days Qty: 30 0RF fluticasone propionate [Aller-Alejandro] 50 mcg/actuation spray,suspension 1 spray intranasal DAILY Qty: 16 0RF Rx Instructions: administer into each nostril montelukast 10 mg tablet 10 mg PO DAILY Qty: 90 0RF Citrucel 500 mg tablet 500 mg PO BID Qty: 60 5RF
[2021-08-29 06:12] LABS: COVID-19 Test Negative (Negative); IDNOW Serial# 9DD0AD1C
--- NOTE | 2021-08-29 06:45 | PC.NURSE ---
Assumed care of pt Pt c/o midsternal pressure started 15 min [employer]. non-radiating Pt denies any SOB/n/v Hx of asthma, reflux and anxiety Will continue to monitor
[2021-08-29 07:01] VITALS: BP 114/73; PULSE 84; RESP 16; TEMP 36.9; O2SAT 99
[2021-08-29] MEDS: Ketorolac Tromethamine 30 MG/ML VIAL 15 MG IVPUSH (07:09)
[2021-08-29] MEDS: LORazepam 2 MG/ML VIAL 1 MG IVPUSH (07:09)
--- NOTE | 2021-08-29 07:15 | PC.NURSE ---
Report rec'd from John GAYTAN. Pt A&Ox3, medicated as per MAR orders. Pt ambulatory with no assistance. DC instructions reviewed w/pt. Pt verbalizes an understanding.
== END 2021-08-29 07:25 | disposition home or self-care (01) ==
LOC: HO.ED 06:41
PROVIDERS: Emergency Medicine; Emergency Provider Emergency Medicine Emergency Medical Services; PCP Internal Medicine
DX: R07.89 Other chest pain (principal); F41.1 Generalized anxiety disorder; F43.0 Acute stress reaction; Z20.822 Contact with and (suspected) exposure to COVID-19; Z79.899 Other long term (current) drug therapy
CPT/HCPCS: 71045; 87635; 93005; 96374; 96375; 99284; J1885; J2060

== ENCOUNTER 2021-08-31 17:01 | Emergency (ER) | payer OTHER, SELFPAY ==
--- NOTE | ~2021-08-31 | XR_ITS ---
EXAMINATION: XR CHEST CLINICAL INFORMATION: Palpitations. COMPARISON: Chest radiograph dated from 08/29/2021. TECHNIQUE: 2 views of the chest were obtained. FINDINGS: No significant abnormality is noted involving the heart, lungs, mediastinum, bony thorax or soft tissues. XR/XR chest 2V IMPRESSION: Unremarkable examination.
[2021-08-31 17:12] VITALS: BP 121/77; PULSE 109; RESP 20; TEMP 36.4; O2SAT 98; BMI 24.4
--- NOTE | 2021-08-31 17:12 | ECG_ITS ---
Test Reason : palpitations Blood Pressure : / mmHG Vent. Rate : 106 BPM Atrial Rate : 106 BPM P-R Int : 128 ms QRS Dur : 092 ms QT Int : 338 ms P-R-T Axes : 068 107 053 degrees QTc Int : 448 ms Sinus tachycardia Rightward axis Borderline ECG When compared with ECG of 29-AUG-2021 05:44, No significant change was found Referred By: Generic ED Physician Electronically Signed By:DAYANARA LING
[2021-08-31 17:51] LABS: MANUAL DIFF FLAG NO
[2021-08-31 17:54] LABS: Basophils Percent Auto 0.2 % (0-2); Eosinophils Percent Auto 0.5 % (0-4); Hematocrit 45.1 % (42.0-52.0); Hemoglobin 15.9 g/dl (14.0-18.0); Imm Gran Abs Auto 0.02 X10*3/uL (0.00-0.03); Imm Gran Pct Auto 0.2 % (0.0-0.4); Lymphocytes Absolute Auto 1.9 X10*3/uL (1.2-4.9); Lymphocytes Percent Auto 23.4 % (20-40); Mean Corpuscular HGB Conc 35.3 g/dl (31.0-36.0); Mean Corpuscular Hemoglobin 29.6 pg (27.0-33.0); Mean Corpuscular Volume 83.8 fL (80.0-98.0); Mean Platelet Volume 8.9 fL (9.4-12.4); Monocytes Absolute Auto 0.5 X10*3/uL (0.1-1.2); Monocytes Percent Auto 6.2 % (2-11); Neutrophils Absolute Auto 5.6 x10*3/uL (2.0-8.3); Neutrophils Percent Auto 69.5 % (45-73); Platelet Count 246 X10*3/uL (160-400); Red Blood Count 5.38 X10*6/uL (4.60-5.80); Red Cell Distribution Width 12.1 % (11.0-16.0)
[2021-08-31 18:10] LABS: COVID-19 Test Negative (Negative)
[2021-08-31 18:13] LABS: Alanine Aminotransferase 33 U/L (0-40); Alkaline Phosphatase 121 U/L (39-117); Anion Gap 15 (12-20); Aspartate Amino Transferase 22 U/L (5-37); Bilirubin Direct 0.4 mg/dL (0.0-0.5); Bilirubin Total 1.4 mg/dL (0.0-1.0); Blood Urea Nitrogen 13 mg/dL (9-16); Calcium 10.2 mg/dL (8.4-10.2); Carbon Dioxide 23 mmol/L (22-29); Chloride 103 mmol/L (96-108); Creatinine Clr Calc Pharmacy 130.4; Estimated Glomerular Filt Rate > 60; Glucose Random 88 mg/dL (60-115); Lipase 16 U/L (8-78); Potassium 3.8 mmol/L (3.3-5.1); Sodium 137 mmol/L (135-145); Total Protein 8.7 g/dL (6.5-8.0)
[2021-08-31 18:18] LABS: Troponin-I High Sensitivity < 3.5 ng/L (<3.5-35.0)
[2021-08-31 19:36] VITALS: BP 127/80; PULSE 97; RESP 15; TEMP 36.8; O2SAT 99
--- NOTE | 2021-08-31 20:06 | PC.NURSE ---
PT PLACED ON MONITOR WHILE HE AWAITS TO BE SEEN BY DOCTOR.
--- NOTE | 2021-08-31 20:13 | ED_ITS ---
HPI - Arrhythmia/Palpitations General Chief Complaint: Arrhythmia/Palpitations Stated Complaint: palpitations Time Seen by Provider: 08/31/21 20:13 Source: patient Mode of arrival: ambulatory Limitations: no limitations History of Present Illness HPI narrative: 26-year-old male past medical history significant for migraine headaches, asthma, anxiety , GERD presenting to the emergency department with complaints of palpitations, chest discomfort, dizziness that started around 3 am today. Patient tells me that he was awake at 03:00 and he started having palpitations, he tells me since then they have been intermittent however he tells me at 03:00 he also started experiencing dizziness described as the room spinning around him and some chest discomfort. He tells me that the chest discomfort feels like pressure substernal nonradiating. This is never happened to him before. He has history of anxiety however he tells me this is not feel like anxiety. No significant get family or personal history of cardiac disease. Patient denies fevers, chills, nausea, vomiting, abdominal pain, weakness, vision changes He tells me 2 weeks ago he had a sore throat and slight upper respiratory symptoms however since then they have resolved. MD complaint: heart racing and palpitations Onset (ago): day(s) (1) Duration: intermittent Severity: mild Context: occurred during rest Associated symptoms: chest pain and other (dizziness ) Related Data Previous Rx's Medication Instructions Recorded methylcellulose (laxative) 500 mg 500 mg PO BID #60 tab 08/31/20 tablet (Citrucel) fluticasone propionate 50 1 spray INTRANASAL DAILY #16 g 12/19/20 mcg/actuation nasal spray,suspension (Aller-Alejandro) omeprazole 20 mg capsule,delayed 20 mg PO DAILY #90 cap 01/20/21 release fluticasone propionate 110 1 puff PO BID #12 ea 04/19/21 mcg/actuation HFA aerosol inhaler (Flovent HFA) sumatriptan succinate 25 mg tablet 25 mg PO .COMPLEX #10 tab 04/28/21 ProAir HFA 90 mcg/actuation 2 puff INHALATION Q6H PRN #8.5 g 05/18/21 NS aerosol inhaler (albuterol sulfate) ondansetron 4 mg disintegrating 4 mg PO TID PRN #30 tab 05/18/21 tablet montelukast 10 mg tablet 10 mg PO DAILY #90 tab 07/09/21 cetirizine 10 mg tablet 10 mg PO DAILY PRN #30 tab 07/13/21 zolpidem 10 mg tablet 10 mg PO BEDTIME PRN 30 Days #30 08/20/21 tab bupropion HCl 150 mg 24 hr tablet, 150 mg PO QAM 30 Days #30 tab 08/30/21 extended release (Wellbutrin XL) lorazepam 1 mg tablet 1 mg PO DAILY PRN 14 Days #14 tab 08/30/21 meclizine 25 mg tablet 25 mg PO DAILY PRN #10 tab 08/31/21 ondansetron 4 mg disintegrating 4 mg PO ONCE PRN #10 tab 08/31/21 tablet Allergies Allergy/AdvReac Type Severity Reaction Status Date / Time methylprednisolone Allergy Unknown UNKNOWN Verified 08/30/21 11:57 [Methylprednisolone] Penicillins Allergy Unknown RASH Verified 08/30/21 11:57 [PENICILLINS] amitriptyline AdvReac Unknown increased Verified 08/30/21 11:57 headaches metoclopramide [From AdvReac Unknown RASH Verified 08/30/21 11:57 REGLAN] trazodone AdvReac Unknown increased Verified 08/30/21 11:57 headaches Review of Systems Verdana 4l Review of Systems: Verdana 4d Verdana 4d Constitutional : No Weight loss, No Fever, No Chills, No Fatigue, No Malaise ENT/Mouth : No sore throat, No Rhinorrhea Eyes: No Eye Pain, No Swelling, No Redness Cardiovascular : + Chest Pain, No SOB, No Dyspnea on Exertion, No OrthopneaOrthopnea, No Edema, + Palpitations Respiratory : No Cough, No Sputum, No Wheezing Gastrointestinal : No Nausea, No Vomiting, No Diarrhea, No Constipation, No abdominal Pain, No Hematochezia, No Melena Genitourinary : No Dysuria, No Urinary Frequency, No Hematuria, Musculoskeletal : No joint pain, No Myalgias, No Joint Swelling Skin : No Skin Lesions, No rash Neuro : No Weakness, No Numbness, + Dizziness, No Headache All other systems reviewed and are negative Yes all other systems are reviewed and are negative PMFSH Past Medical History Attestation statement: The following information was validated with the patient. Source: old records reviewed and nursing notes reviewed Medical History Acid reflux Allergic rhinitis Anxiety Asthma Impacted cerumen of both ears Insomnia Intermittent abdominal pain Migraine Pure hypercholesterolemia Surgical History History of appendectomy Family History Family History Father Asthma Mother Fibromyalgia HTN (hypertension) Social History Social History Household Members: Family Housing: House Alcohol intake: never Patient Tobacco Use Status: Never used Tobacco Second Hand Smoke Exposure: Yes Advance Directives: No Advance Directives Information Provided: No service: No Current occupational status: unemployed Physical Exam Verdana 4l Vital Signs: Verdana 4d Verdana 4d Vital Signs: Verdana 4d Verdana 4Bd Last Vital Signs Verdana 4d Brand Communications Manager New 4d Brand Communications Manager New 4d Temp 97.9 F 08/31/21 21:31 Brand Communications Manager New 4d Pulse 98 08/31/21 21:31 Brand Communications Manager New 4d Resp 15 08/31/21 21:31 BP 120/70 08/31/21 21:31 Pulse Ox 99 08/31/21 21:31 BMI result Body Mass Index 24.4 VSS, slighltly tachycardic Appearance: Alert.? Oriented X3.? No acute distress.?Patient appears anxious Head: Normocephalic, atraumatic, no step-offs or deformities Eyes: Pupils equal, round and reactive to light.? ENT: Pharynx normal.? Neck: Normal inspection.? Neck supple.? CVS: Rapid rate regular rythem.? Pulses normal.? Respiratory: No respiratory distress.? Breath sounds normal.? Abdomen: Soft and nontender.? Skin: Skin warm and dry.? Normal skin color.? Normal skin turgor.? Extremities: No lower extremity edema.? No calf ttp. 5/5 strength to bilateral upper and lower extremities Back: No midline tenderness, no C-spine tenderness, full range of motion, no CVA tenderness bilaterally Neuro: Oriented X 3.? No motor deficit.? No sensory deficit. Normal [id number], heel to zabala, normal tandem gait. Course Reevaluation(s) Reevaluation #1: CBC within normal limits, chemistry with an elevated bilirubin however patient not complaining of abdominal pain nausea or vomiting, alk-phos also elevated. Troponin is negative EKG is nonischemic unlikley ACS. COVID is negative. Chest x-ray is unremarkable. History and physical examination not consistent with pulmonary embolism. Likely upper respiratory infection with anxiety. Time: 20:19 Reevaluation #2: Patient's orthostatic vital signs negative however patient does report dizziness throughout. Likely vertigo. No nystagmus. Meclizine will be given patient will be revaluated. Time: 20:50 Reevaluation #3: Ambulating with steady gait. Dimer negative asif PA. Improvement with meclizine. Patient appears anxious. Will DC home with meclizine and zofran likely vertigo. Time: 21:43 MDM - Arrhythmia/Palpitations MDM Narrative Medical decision making narrative: 2013 26 yo m pmxh migraanes, GERD, anxiety, asthma presents with palpitations, chest discomfort, vertigo X1 day. Patient appears anxious however tells me this feels different than his typical anxiety. PE significant for a rapid rate, regular rythem. Lungs clear. Neuro nonfocal, unlikley posterior stroke. Plan- labs, EKG, CXR, orthostatic vitals. Medical Records Attestation: I reviewed the patient's medical records. Lab Data Attestation: I reviewed the patient's lab results. Result diagrams: 08/31/21 17:37 08/31/21 17:37 Labs: Lab Results 08/31/21 08/31/21 08/31/21 Range/Units 17:37 17:37 17:37 WBC 8.0 (4.8-10.8) X10*3/uL RBC 5.38 (4.60-5.80) X10*6/uL Hgb 15.9 (14.0-18.0) g/dl Hct 45.1 (42.0-52.0) % MCV 83.8 (80.0-98.0) fL MCH 29.6 (27.0-33.0) pg MCHC 35.3 (31.0-36.0) g/dl RDW 12.1 (11.0-16.0) % Plt Count 246 (160-400) X10*3/uL MPV 8.9 L (9.4-12.4) fL Immature Gran % (Auto) 0.2 (0.0-0.4) % Neut % (Auto) 69.5 (45-73) % Lymph % (Auto) 23.4 (20-40) % [place] % (Auto) 6.2 (2-11) % Eos % (Auto) 0.5 (0-4) % Baso % (Auto) 0.2 (0-2) % Lymph # (Auto) 1.9 (1.2-4.9) X10*3/uL [place] # (Auto) 0.5 (0.1-1.2) X10*3/uL Eos # (Auto) 0.0 (0.0-0.4) X10*3/uL Baso # (Auto) 0.0 (0.0-0.2) X10*3/uL Abs Immat Gran (auto) 0.02 (0.00-0.03) X10*3/uL Absolute Neuts (auto) 5.6 (2.0-8.3) x10*3/uL Absolute Nucleated RBC 0.000 (0.0-0.012) X10*3/uL Nucleated RBC % (auto) 0.0 (0.0-0.2) /100WBC D-Dimer High Sensitivty NG/ML Sodium 137 (135-145) mmol/L Potassium 3.8 (3.3-5.1) mmol/L Chloride 103 (96-108) mmol/L Carbon Dioxide 23 (22-29) mmol/L Anion Gap 15 (12-20) BUN 13 (9-16) mg/dL Creatinine 0.93 (0.5-1.4) mg/dL Estim Creat Clear Calc 130.4 Estimated GFR > 60 Random Glucose 88 (60-115) mg/dL Calcium 10.2 (8.4-10.2) mg/dL Total Bilirubin 1.4 H (0.0-1.0) mg/dL Direct Bilirubin 0.4 (0.0-0.5) mg/dL AST 22 (5-37) U/L ALT 33 (0-40) U/L Alkaline Phosphatase 121 H (39-117) U/L Troponin I High Sens < 3.5 (<3.5-35.0) ng/L Total Protein 8.7 H (6.5-8.0) g/dL Albumin 5.0 (3.5-5.0) g/dL Lipase 16 (8-78) U/L COVID-19 (DARLYN) (Negative) COVID-19 Clin Com 08/31/21 08/31/21 Range/Units 17:37 20:36 WBC (4.8-10.8) X10*3/uL RBC (4.60-5.80) X10*6/uL Hgb (14.0-18.0) g/dl Hct (42.0-52.0) % MCV (80.0-98.0) fL MCH (27.0-33.0) pg MCHC (31.0-36.0) g/dl RDW (11.0-16.0) % Plt Count (160-400) X10*3/uL MPV (9.4-12.4) fL Immature Gran % (Auto) (0.0-0.4) % Neut % (Auto) (45-73) % Lymph % (Auto) (20-40) % [place] % (Auto) (2-11) % Eos % (Auto) (0-4) % Baso % (Auto) (0-2) % Lymph # (Auto) (1.2-4.9) X10*3/uL [place] # (Auto) (0.1-1.2) X10*3/uL Eos # (Auto) (0.0-0.4) X10*3/uL Baso # (Auto) (0.0-0.2) X10*3/uL Abs Immat Gran (auto) (0.00-0.03) X10*3/uL Absolute Neuts (auto) (2.0-8.3) x10*3/uL Absolute Nucleated RBC (0.0-0.012) X10*3/uL Nucleated RBC % (auto) (0.0-0.2) /100WBC D-Dimer High Sensitivty 179 NG/ML Sodium (135-145) mmol/L Potassium (3.3-5.1) mmol/L Chloride (96-108) mmol/L Carbon Dioxide (22-29) mmol/L Anion Gap (12-20) BUN (9-16) mg/dL Creatinine (0.5-1.4) mg/dL Estim Creat Clear Calc Estimated GFR Random Glucose (60-115) mg/dL Calcium (8.4-10.2) mg/dL Total Bilirubin (0.0-1.0) mg/dL Direct Bilirubin (0.0-0.5) mg/dL AST (5-37) U/L ALT (0-40) U/L Alkaline Phosphatase (39-117) U/L Troponin I High Sens (<3.5-35.0) ng/L Total Protein (6.5-8.0) g/dL Albumin (3.5-5.0) g/dL Lipase (8-78) U/L COVID-19 (DARLYN) Negative (Negative) COVID-19 Clin Com See Note ECG Data Attestation: I personally reviewed and interpreted this ECG as follows: ECG interpretation date: 08/31/21 ECG interpretation time: 20:49 Prior ECG tracings: available for review Interpretation: Ventricular rate of 106, NH normal, QRS normal, QT/QTC normal. EKG shows sinus tachycardia with a right axis deviation. No ST elevations or depressions concerning for ischemia. No significant changes when compared to EKG from 08/29/2021. Critical Care Time Critical Care Time Critical Care Time: No Discharge Plan Discharge Clinical Impression: Anxiety, Vertigo Patient Disposition: Home, Self-Care Instructions: Anxiety (ED) Additional Instructions: Take your medications as prescribed. If you were prescribed antibiotics today, it is important that you take your medication to their entirety, do not skip any doses, do not finish them early. Follow-up with your primary care provider this week. Return to the emergency department with new or worsening symptoms. In case of emergency call 911 COVID negative. Your x-ray looked good today no signs of pneumonia. Prescriptions: New meclizine 25 mg tablet 25 mg PO DAILY PRN (Reason: dizziness) Qty: 10 0RF ondansetron 4 mg tablet,disintegrating 4 mg PO ONCE PRN (Reason: nausea and vomiting) Qty: 10 0RF No Action omeprazole 20 mg capsule,delayed release(DR/EC) 20 mg PO DAILY Qty: 90 3RF Flovent HFA 110 mcg/actuation HFA aerosol inhaler 1 puff PO BID Qty: 12 5RF sumatriptan succinate 25 mg tablet 25 mg PO .COMPLEX Qty: 10 5RF Rx Instructions: TAKE 1 TABLET BY MOUTH EVERY DAY FOR MIGRAINES MAY REPEAT AFTER 2 HOURS ondansetron 4 mg tablet,disintegrating 4 mg PO TID PRN (Reason: for nausea/vomiting) Qty: 30 5RF albuterol sulfate [ProAir HFA] 90 mcg/actuation HFA aerosol inhaler 2 puff inhalation Q6H PRN (Reason: for wheezing) Qty: 8.5 3RF cetirizine 10 mg tablet 10 mg PO DAILY PRN (Reason: for allergies) Qty: 30 5RF zolpidem 10 mg tablet 10 mg PO BEDTIME PRN (Reason: insomnia) 30 Days Qty: 30 0RF fluticasone propionate [Aller-Alejandro] 50 mcg/actuation spray,suspension 1 spray intranasal DAILY Qty: 16 0RF Rx Instructions: administer into each nostril montelukast 10 mg tablet 10 mg PO DAILY Qty: 90 0RF bupropion HCl [Wellbutrin XL] 150 mg tablet extended release 24 hr 150 mg PO QAM 30 Days Qty: 30 2RF Rx Instructions: Must be taken everyday lorazepam 1 mg tablet 1 mg PO DAILY PRN (Reason: anxiety) 14 Days Qty: 14 0RF Rx Instructions: Take ONLY NEEDED Citrucel 500 mg tablet 500 mg PO BID Qty: 60 5RF Referrals: Jovan Mac MD [Primary Care Provider] - 2 days Stand Alone Forms: Work/School Release
[2021-08-31 20:33] VITALS: BP 125/63; PULSE 97
[2021-08-31 20:34] VITALS: BP 123/76; PULSE 105
[2021-08-31 20:35] VITALS: BP 121/70; PULSE 114
[2021-08-31 21:01] LABS: D Dimer High Sensitivity 179 NG/ML
[2021-08-31] MEDS: Meclizine HCl 25 MG TABLET PO (21:09)
[2021-08-31 21:31] VITALS: BP 120/70; PULSE 98; RESP 15; TEMP 36.6; O2SAT 99
[2021-08-31] MEDS: Ketorolac Tromethamine 30 MG/ML VIAL IM (21:59)
== END 2021-08-31 22:13 | disposition home or self-care (01) ==
PROVIDERS: Physician Assistant; Emergency Provider Emergency Medicine Emergency Medical Services; PCP Internal Medicine
DX: F41.9 Anxiety disorder, unspecified (principal); R42 Dizziness and giddiness; Z20.822 Contact with and (suspected) exposure to COVID-19
CPT/HCPCS: 36415; 71046; 80048; 80076; 83690; 84484; 85025; 85379; 87635; 93005; 96372; 99284; J1885

== ENCOUNTER → 2021-10-31 13:12 | Outpatient (BNVA) | payer OTHER, SELFPAY | PROVIDERS: PCP Internal Medicine; Referring Provider Internal Medicine; Visit Provider Physician Assistant | DX: R77.9 Abnormality of plasma protein, unspecified (principal); K59.09 Other constipation; R14.0 Abdominal distension (gaseous) | CPT/HCPCS: 99212 ==

== ENCOUNTER 2021-11-16 13:02 | Outpatient (REF) | payer OTHER, SELFPAY ==
[2021-11-16 13:56] LABS: Appearance Urine CLEAR; Color Urine YELLOW; Glucose Urine UA NEG (NEG); Leukocyte Esterase Urine NEG (NEG); Nitrite Urine NEG (NEG); Specific Gravity - Urine >= 1.030 (1.005-1.025); UACC Culture Trigger NO; Urine Blood 1+ (NEG); Urine Ketones NEG (NEG); Urine Protein NEG (NEG-TRACE)
[2021-11-16 14:10] LABS: Squamous Epithelial Cell Urine 1+ /LPF; WBC Urine 0 /HPF (0-4)
[2021-11-16 14:10] LABS: Alanine Aminotransferase 30 U/L (0-40); Albumin Level 4.6 g/dL (3.5-5.0); Alkaline Phosphatase 100 U/L (39-117); Anion Gap 13 (12-20); Aspartate Amino Transferase 23 U/L (5-37); Bilirubin Total 1.2 mg/dL (0.0-1.0); Blood Urea Nitrogen 10 mg/dL (9-16); Calcium 9.9 mg/dL (8.4-10.2); Carbon Dioxide 27 mmol/L (22-29); Chloride 104 mmol/L (96-108); Cholesterol 205 mg/dL; Estimated Glomerular Filt Rate > 60; Glucose Random 83 mg/dL (60-115); HDL Cholesterol 48 mg/dL; LDL Cholesterol Calculated 139 mg/dl; Potassium 3.7 mmol/L (3.3-5.1); Sodium 140 mmol/L (135-145); Total Protein 7.9 g/dL (6.5-8.0); Triglycerides 92 mg/dL
[2021-11-16 14:32] LABS: Thyroid Stimulating Hormone 5.09 uIU/mL (0.32-4.0)
[2021-11-17 15:27] LABS: Prot Elec - Albumin 4.6 g/dL (3.8-4.8); Prot Elec - Alpha1 0.3 g/dL (0.2-0.3); Prot Elec - Alpha2 0.8 g/dL (0.5-0.9); Prot Elec - Beta 1 0.4 g/dL (0.4-0.6); Prot Elec - Beta 2 0.4 g/dL (0.2-0.5); Prot Elec - Gamma 1.4 g/dL (0.8-1.7); Prot Elec - Total Protein 7.9 g/dL (6.1-8.1)
== END 2021-11-16 13:03 | disposition home or self-care (01) ==
LOC: HO.LAB 13:02
PROVIDERS: PCP Internal Medicine; Visit Provider Physician Assistant
DX: K59.09 Other constipation (principal); K76.0 Fatty (change of) liver, not elsewhere classified; K21.9 Gastro-esophageal reflux disease without esophagitis; R77.9 Abnormality of plasma protein, unspecified
CPT/HCPCS: 36415; 80053; 80061; 81001; 84165; 84443

== ENCOUNTER 2022-01-10 20:13 | Emergency (ER) | payer OTHER, SELFPAY ==
--- NOTE | ~2022-01-10 | XR_ITS ---
EXAMINATION: XR CHEST CLINICAL INFORMATION: Cough. COMPARISON: Chest x-ray 08/31/2021 TECHNIQUE: 2 views of the chest were obtained. FINDINGS: No significant abnormality is noted involving the heart, lungs, mediastinum, bony thorax or soft tissues. XR/XR chest 2V IMPRESSION: Unremarkable examination.
[2022-01-10 21:16] VITALS: BP 138/68; PULSE 95; RESP 18; TEMP 36.8; O2SAT 97; BMI 24.4
[2022-01-10 21:42] LABS: Influenza A Negative (Negative); Influenza B2 Negative (Negative)
[2022-01-10 21:43] LABS: COVID-19 Test Negative (Negative); IDNOW Serial# 16C4AD1C
--- NOTE | 2022-01-10 22:12 | ED_ITS ---
HPI - SOB/Dyspnea General Chief Complaint: Upper Respiratory Symptoms Stated Complaint: asthma Time Seen by Provider: 01/10/22 21:47 Source: patient Mode of arrival: ambulatory Limitations: no limitations History of Present Illness HPI Narrative: 27-year-old male with history of asthma who presents emergency department for evaluation of chest tightness, shortness of breath and cough x2 days. Patient states that the chest tightness is come on gradually 2 days prior. Points to the center of his chest when asked to localize the tightness. The tightness is intermittent and worse with breathing and relieved with his inhalers. He states that the tightness is 9/10 at its worst. Patient states that today the tightness became more persistent and was worse therefore came to the emergency department for evaluation. He has had a cough which is productive thick yellow mucus. He has had to uses albuterol inhaler and his nebulizer more frequently than usual with only minimal relief of his symptoms. He denied fever, chills, rhinorrhea, sore throat, shortness of breath, he has noted dyspnea on exertion. He denied myalgias or arthralgias. The patient received 2 Pfizer COVID-19 vaccinations but has not received a booster vaccination. Related Data Previous Rx's Medication Instructions Recorded fluticasone propionate 110 1 puff PO BID #12 ea 10/07/21 mcg/actuation HFA aerosol inhaler (Flovent HFA) docusate sodium 100 mg capsule 200 mg PO BEDTIME #60 caps 10/31/21 (Colace) methylcellulose (laxative) 500 mg 500 mg PO TID #90 tabs 10/31/21 tablet (Citrucel) polyethylene glycol 3350 17 gram 17 g PO DAILY #30 ea 10/31/21 oral powder packet (Miralax) ProAir HFA 90 mcg/actuation 2 puff inhalation Q6H PRN for 11/15/21 aerosol inhaler (albuterol sulfate) wheezing #8.5 grams sumatriptan succinate 25 mg tablet 25 mg PO .COMPLEX for migraine #10 11/15/21 tabs montelukast 10 mg tablet 10 mg PO DAILY #90 tabs 12/06/21 bupropion HCl 150 mg 24 hr tablet, 150 mg PO QAM 30 days #30 tabs 12/25/21 extended release (Wellbutrin XL) cetirizine 10 mg tablet 10 mg PO DAILY PRN for allergies 12/26/21 #30 tabs lorazepam 1 mg tablet 1 mg PO DAILY PRN anxiety 14 days 12/26/21 #14 tabs omeprazole 20 mg capsule,delayed 20 mg PO DAILY #90 caps 12/26/21 release ondansetron 4 mg disintegrating 4 mg PO ONCE PRN nausea and 01/09/22 tablet vomiting #10 tabs zolpidem 10 mg tablet 10 mg PO BEDTIME PRN insomnia 30 01/09/22 days #30 tabs prednisone 20 mg tablet 60 mg PO DAILY 5 days #15 tabs 01/10/22 Allergies Allergy/AdvReac Type Severity Reaction Status Date / Time methylprednisolone Allergy Unknown UNKNOWN Verified 01/10/22 21:16 [Methylprednisolone] Penicillins [PENICILLINS] Allergy Unknown RASH Verified 01/10/22 21:16 amitriptyline AdvReac Unknown increased Verified 01/10/22 21:16 headaches metoclopramide [From REGLAN] AdvReac Unknown RASH Verified 01/10/22 21:16 trazodone AdvReac Unknown increased Verified 01/10/22 21:16 headaches Review of Systems Review of Systems: Yes all other systems are reviewed and are negative [facility] Past Medical History Attestation statement: The following information was validated with the patient. [facility] Narrative: Past medical history: Asthma, GERD, anxiety. Past surgical history: None. Social history: He denies tobacco, alcohol and drug use. 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 Cognitive needs: No Hearing needs: No Vision needs: Yes (glasses) Physical Exam Vital Signs: Vital Signs: Last Vital Signs Temp 98.3 F 01/10/22 21:16 Pulse 95 01/10/22 21:16 Resp 18 01/10/22 21:16 BP 138/68 01/10/22 21:16 Pulse Ox 97 01/10/22 21:16 O2 Del Method 01/10/22 21:16 BMI result Body Mass Index 24.4 Const: General: cooperative and no acute distress Orientation/consciousness: oriented to person and oriented to place Limitations: no limitations HEENT: Head: Yes normal to inspection, Yes normocephalic and Yes atraumatic Ears: external ears normal General nose exam: Normal external nose present Face and sinus: Yes normal facial exam Mouth: Normal oral and palatal mucosa present Throat: Yes posterior oropharynx normal Eyes: General: appearance normal, both eyes and all related structures Pupils: Equal, round and reactive pupils present Neck: Neck: Yes normal visual inspection, Yes no lymphadenopathy, Yes trachea midline and Yes supple Chest: Chest palpation & inspection: normal inspection of the chest and normal palpation of entire chest wall Resp: Effort & Inspection: normal respiratory effort and able to speak in complete sentences Auscultation: clear to auscultation bilaterally Cardio: Rate: regular rate Rhythm: regular rhythm Heart sounds: S1 normal heart sound present, S2 normal heart sound present and no murmurs GI: Inspection: Yes normal to inspection Palpation (GI): Soft to palpation, nontender and no guarding Auscultation: normal bowel sounds : General: Yes no CVA tenderness Back/Spine/Pelvis: Back: no CVA tenderness Skin: General skin exam: no rashes or lesions noted Neuro: General: oriented to person and oriented to place Cranial nerves: Yes CN's II-XII intact bilaterally and Yes Equal, round and reactive pupils present Cognition (Neuro): normal cognition Motor exam (neuro): 5/5 motor strength present throughout Extrem: General: Yes normal to inspection Psych: Appearance: grossly normal Speech and movement: Normal speech and movement present Affect: normal affect Attitude: cooperative Thought process: Normal thought process present Thought content: Normal thought content present Course Course Course Narrative: 27-year-old male with history of asthma who presents emergency department for evaluation of 2 days of shortness of breath, chest cyst tightness and productive cough. Patient has been using his inhaler nebulizer more frequently with only minimal improvement of symptoms. He denied fever chills. Vital signs were normal. Lung exam was clear this time. Patient's presentation is consistent with an asthma exacerbation probably within increased inflammatory component. I did discuss this with him. He was given prednisone 60 mg orally. He was started on prednisone 60 mg once a day for 5 days. This time I do not think he needs an antibiotic. He was given printed and verbal instructions discharged home. The patient's COVID-19 test was negative. Patient's chest x-ray revealed no acute process on my review of this x-ray. MDM - SOB/Dyspnea Lab Data Labs: Lab Results 01/10/22 01/10/22 Range/Units 21:20 21:20 COVID-19 (DARLYN) Negative (Negative) COVID-19 Clin Com See Note Influenza Type A (SUJIT) Negative (Negative) Influenza Type B (SUJIT) Negative (Negative) Influenza A & B Note See Note Discharge Plan Discharge Clinical Impression: Asthma exacerbation Patient Disposition: Home, Self-Care Instructions: Asthma (ED) Additional Instructions: Your chest x-ray was normal. Your COVID-19 test was negative. Your symptoms are consistent with a flare-up/exacerbation of your asthma most likely caused by the increased pollen in the air. You received prednisone 60 mg orally. Take your next dose of prednisone tomorrow morning. Take prednisone 20 mg pills, 3 pills once a day for 5 days. Follow-up with your doctor in 2 days. Please return to the emergency department if your symptoms get worse or if you develop any symptoms that are concerning to you. Prescriptions: New prednisone 20 mg tablet 60 mg PO DAILY 5 Days Qty: 15 0RF No Action Flovent HFA 110 mcg/actuation HFA aerosol inhaler 1 puff PO BID Qty: 12 5RF albuterol sulfate [ProAir HFA] 90 mcg/actuation HFA aerosol inhaler 2 puff inhalation Q6H PRN (Reason: for wheezing) Qty: 8.5 3RF sumatriptan succinate 25 mg tablet 25 mg PO .COMPLEX Qty: 10 5RF Rx Instructions: TAKE 1 TABLET BY MOUTH EVERY DAY FOR MIGRAINES MAY REPEAT AFTER 2 HOURS montelukast 10 mg tablet 10 mg PO DAILY Qty: 90 0RF bupropion HCl [Wellbutrin XL] 150 mg tablet extended release 24 hr 150 mg PO QAM 30 Days Qty: 30 2RF Rx Instructions: Must be taken everyday lorazepam 1 mg tablet 1 mg PO DAILY PRN (Reason: anxiety) 14 Days Qty: 14 0RF Rx Instructions: Take ONLY NEEDED omeprazole 20 mg capsule,delayed release(DR/EC) 20 mg PO DAILY Qty: 90 3RF cetirizine 10 mg tablet 10 mg PO DAILY PRN (Reason: for allergies) Qty: 30 5RF zolpidem 10 mg tablet 10 mg PO BEDTIME PRN (Reason: insomnia) 30 Days Qty: 30 0RF ondansetron 4 mg tablet,disintegrating 4 mg PO ONCE PRN (Reason: nausea and vomiting) Qty: 10 0RF Citrucel 500 mg tablet 500 mg PO TID Qty: 90 5RF docusate sodium [Colace] 100 mg capsule 200 mg PO BEDTIME Qty: 60 5RF polyethylene glycol 3350 [Miralax] 17 gram powder in packet 17 g PO DAILY Qty: 30 5RF
[2022-01-10] MEDS: predniSONE 20 MG TABLET 60 MG PO (22:41)
== END 2022-01-10 22:44 | disposition home or self-care (01) ==
PROVIDERS: Emergency Provider Emergency Medicine Emergency Medical Services; PCP Internal Medicine
DX: J45.901 Unspecified asthma with (acute) exacerbation (principal); Z20.822 Contact with and (suspected) exposure to COVID-19; R06.02 Shortness of breath
CPT/HCPCS: 71046; 87502; 87635; 99282; 99283

== ENCOUNTER 2022-01-21 14:20 | Outpatient (REF) | payer OTHER, SELFPAY ==
[2022-01-21 15:44] LABS: Influenza A PCR NEGATIVE (Negative); Influenza B PCR NEGATIVE (Negative); Resp Syncy Virus RNA Qual PCR NEGATIVE (Negative); SARS COV2 PCR INHOUSE NEGATIVE (Negative)
== END 2022-01-21 14:21 | disposition home or self-care (01) ==
LOC: HO.LNP 14:20
PROVIDERS: Visit Provider Physician Assistant
DX: Z20.822 Contact with and (suspected) exposure to COVID-19 (principal); B34.9 Viral infection, unspecified
CPT/HCPCS: 0241U

== ENCOUNTER → 2022-01-24 07:40 | Outpatient (BNVA) | payer OTHER, SELFPAY | PROVIDERS: PCP Internal Medicine; Visit Provider Physician Assistant | DX: K21.9 Gastro-esophageal reflux disease without esophagitis (principal); K59.09 Other constipation | CPT/HCPCS: 99202 ==

== ENCOUNTER 2022-05-02 09:37 | Outpatient (REF) | payer OTHER, SELFPAY ==
[2022-05-02 10:09] LABS: MANUAL DIFF FLAG NO
[2022-05-02 10:44] LABS: Basophils Percent Auto 0.3 % (0-2); Eosinophils Absolute Auto 0.1 X10*3/uL (0.0-0.4); Eosinophils Percent Auto 0.9 % (0-4); Hematocrit 44.1 % (42.0-52.0); Hemoglobin 15.2 g/dl (14.0-18.0); Imm Gran Abs Auto 0.02 X10*3/uL (0.00-0.03); Imm Gran Pct Auto 0.3 % (0.0-0.4); Lymphocytes Absolute Auto 2.7 X10*3/uL (1.2-4.9); Lymphocytes Percent Auto 42.2 % (20-40); Mean Corpuscular HGB Conc 34.5 g/dl (31.0-36.0); Mean Corpuscular Hemoglobin 29.1 pg (27.0-33.0); Mean Corpuscular Volume 84.5 fL (80.0-98.0); Mean Platelet Volume 8.9 fL (9.4-12.4); Monocytes Absolute Auto 0.4 X10*3/uL (0.1-1.2); Monocytes Percent Auto 6.3 % (2-11); Neutrophils Absolute Auto 3.2 x10*3/uL (2.0-8.3); Platelet Count 225 X10*3/uL (160-400); Red Blood Count 5.22 X10*6/uL (4.60-5.80); Red Cell Distribution Width 12.2 % (11.0-16.0); White Blood Count 6.3 X10*3/uL (4.8-10.8)
[2022-05-02 11:11] LABS: Alanine Aminotransferase 32 U/L (0-40); Albumin Level 4.9 g/dL (3.5-5.0); Alkaline Phosphatase 99 U/L (39-117); Anion Gap 13 (12-20); Aspartate Amino Transferase 24 U/L (5-37); Bilirubin Total 0.7 mg/dL (0.0-1.0); Blood Urea Nitrogen 11 mg/dL (9-16); Calcium 9.9 mg/dL (8.4-10.2); Carbon Dioxide 27 mmol/L (22-29); Chloride 105 mmol/L (96-108); Cholesterol 242 mg/dL; Estimated Glomerular Filt Rate > 60; Glucose Fasting 93 mg/dL (60-99); HDL Cholesterol 45 mg/dL; LDL Cholesterol Calculated 170 mg/dl; Potassium 4.1 mmol/L (3.3-5.1); Sodium 141 mmol/L (135-145); Triglycerides 138 mg/dL
[2022-05-02 11:35] LABS: Free T4 (Free Thyroxine) 1.01 ng/dL (0.71-1.85); Thyroid Stimulating Hormone 1.93 uIU/mL (0.32-4.0)
[2022-05-02 12:26] LABS: Urine Cytology See Pathology rpt
[2022-05-02 13:06] LABS: Appearance Urine Clear; Color Urine Yellow; Glucose Urine UA Negative (Negative); Leukocyte Esterase Urine Negative (Negative); Nitrite Urine Negative (Negative); PH 7.5 (5.0-9.0); Urine Blood Negative (Negative); Urine Ketones Negative (Negative); Urine Protein Negative (Neg-Trace)
== END 2022-05-02 09:38 | disposition home or self-care (01) ==
LOC: HO.LAB 09:37
PROVIDERS: PCP Internal Medicine; Visit Provider Internal Medicine
DX: E78.00 Pure hypercholesterolemia, unspecified (principal); R31.21 Asymptomatic microscopic hematuria; R79.89 Other specified abnormal findings of blood chemistry; I10 Essential (primary) hypertension
CPT/HCPCS: 36415; 80053; 80061; 81003; 84439; 84443; 85025; 88112

== ENCOUNTER 2022-06-27 08:35 | Outpatient (REF) | payer OTHER, SELFPAY ==
[2022-06-27 08:54] LABS: MANUAL DIFF FLAG NO
[2022-06-27 09:25] LABS: Basophils Percent Auto 0.2 % (0-2); Eosinophils Absolute Auto 0.1 X10*3/uL (0.0-0.4); Eosinophils Percent Auto 0.8 % (0-4); Hematocrit 44.9 % (42.0-52.0); Hemoglobin 15.3 g/dl (14.0-18.0); Imm Gran Abs Auto 0.02 X10*3/uL (0.00-0.03); Imm Gran Pct Auto 0.3 % (0.0-0.4); Lymphocytes Absolute Auto 2.7 X10*3/uL (1.2-4.9); Lymphocytes Percent Auto 42.4 % (20-40); Mean Corpuscular HGB Conc 34.1 g/dl (31.0-36.0); Mean Corpuscular Hemoglobin 29.4 pg (27.0-33.0); Mean Corpuscular Volume 86.2 fL (80.0-98.0); Mean Platelet Volume 9.2 fL (9.4-12.4); Monocytes Absolute Auto 0.3 X10*3/uL (0.1-1.2); Monocytes Percent Auto 5.1 % (2-11); Neutrophils Absolute Auto 3.3 x10*3/uL (2.0-8.3); Neutrophils Percent Auto 51.2 % (45-73); Platelet Count 211 X10*3/uL (160-400); Red Blood Count 5.21 X10*6/uL (4.60-5.80); Red Cell Distribution Width 12.7 % (11.0-16.0); White Blood Count 6.4 X10*3/uL (4.8-10.8)
[2022-06-27 10:04] LABS: TSH reflex Free T4 2.05 uIU/mL (0.32-4.0)
[2022-06-27 10:07] LABS: Alanine Aminotransferase 28 U/L (0-40); Albumin Level 4.8 g/dL (3.5-5.0); Alkaline Phosphatase 101 U/L (39-117); Anion Gap 11 (12-20); Aspartate Amino Transferase 21 U/L (5-37); Blood Urea Nitrogen 9 mg/dL (9-16); Carbon Dioxide 27 mmol/L (22-29); Chloride 103 mmol/L (96-108); Cholesterol 195 mg/dL; Estimated Glomerular Filt Rate > 60; Free T4 (Free Thyroxine) 0.88 ng/dL (0.71-1.85); Glucose Fasting 82 mg/dL (60-99); HDL Cholesterol 50 mg/dL; LDL Cholesterol Calculated 128 mg/dl; Potassium 3.9 mmol/L (3.3-5.1); Sodium 137 mmol/L (135-145); Thyroid Stimulating Hormone 1.95 uIU/mL (0.32-4.0); Total Protein 7.6 g/dL (6.5-8.0); Triglycerides 87 mg/dL
== END 2022-06-27 08:36 | disposition home or self-care (01) ==
LOC: HO.LAB 08:35
PROVIDERS: PCP Internal Medicine; Visit Provider Internal Medicine
DX: R79.89 Other specified abnormal findings of blood chemistry (principal); E78.00 Pure hypercholesterolemia, unspecified; I10 Essential (primary) hypertension
CPT/HCPCS: 36415; 80053; 80061; 84439; 84443; 85025

== ENCOUNTER → 2022-10-07 14:07 | Outpatient (BNVA) | payer OTHER, SELFPAY | PROVIDERS: PCP Internal Medicine; Referring Provider Internal Medicine; Visit Provider Physician Assistant | DX: K59.09 Other constipation (principal); K21.9 Gastro-esophageal reflux disease without esophagitis | CPT/HCPCS: 99212 ==

== ENCOUNTER 2023-02-19 10:59 | Outpatient (AMB) | payer OTHER, SELFPAY ==
--- NOTE | 2023-02-19 11:08 | A.OFFVIS_ITS ---
Intake Vital Signs 02/19/23 11:12 Height 5 ft 11 in Weight 168 lb BMI 23.4 BP 122/62 Blood Pressure Location Lt brachial Position Sitting Pulse 66 Intake Visit Reasons: stomach pains Intake Note: Patient follow up fro abdominal pain and chronic constipation. Patient cc: Nauseas, abdominal pain/bloating and chronic constipation. Denies any other GI issues. 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 Accompanied by: Self / Same As Patient Allergies methylprednisolone [Methylprednisolone] Allergy (Unknown, Verified 02/19/23 11:06) UNKNOWN Penicillins [PENICILLINS] Allergy (Unknown, Verified 02/19/23 11:06) RASH amitriptyline Adverse Reaction (Unknown, Verified 02/19/23 11:06) increased headaches metoclopramide [From REGLAN] Adverse Reaction (Unknown, Verified 02/19/23 11:06) RASH trazodone Adverse Reaction (Unknown, Verified 02/19/23 11:06) increased headaches Medication List - Last Reconciled 02/19/23 by Cate Gomez PA-C bupropion HCl (Wellbutrin XL) 150 mg PO QAM 30 days cetirizine 10 mg PO DAILY PRN docusate sodium (Colace) 200 mg (2 x 100 mg) PO BEDTIME fluticasone propionate 110 mcg/actuation (Flovent HFA) 1 puff PO BID lorazepam 1 mg PO DAILY PRN 14 days methylcellulose (laxative) (Citrucel) 500 mg PO TID montelukast 10 mg PO DAILY omeprazole 40 mg PO DAILY ondansetron 4 mg PO ONCE PRN polyethylene glycol 3350 (Miralax) 17 grams PO DAILY sumatriptan succinate TAKE 1 TABLET BY MOUTH EVERY DAY FOR MIGRAINES MAY REPEAT AFTER 2 HOURS topiramate 50 mg PO DAILY PRN Ventolin HFA 90 mcg/actuation (albuterol sulfate) 2 puffs inhalation Q6H PRN NS zolpidem 10 mg PO BEDTIME PRN 30 days HPI HPI Comments History of Present Illness Details Last seen-A 28 y/o male with chronic vague abdominal pain- last event 2 weeks ago- has a strange taste Years of omeprazole- as a child he had multiple EGD- last about 10 years ago We discussed EGD previously- Uses inhalers- reports good hygiene Chronic constipated-despite bowel regimen-random nonspecific a wandering abdominal pain He does admit to stress and anxiety He has no nausea, vomiting fever or chills PFSH Medical History Allergic rhinitis Anxiety Asthma GERD (gastroesophageal reflux disease) Insomnia Migraine Pure hypercholesterolemia Surgical History History of appendectomy History of ear, nose, and throat (ENT) surgery Family History Father Asthma Mother Fibromyalgia HTN (hypertension) Social History Household Members: Family Housing: House Alcohol intake: never Patient Tobacco Use Status: Never used Tobacco Second Hand Smoke Exposure: Yes service: No Current occupational status: unemployed Cognitive needs: No Hearing needs: No Vision needs: Yes (glasses) Review of Systems Const All systems reviewed & are unremarkable except as noted in HPI and below Physical Exam Vital Signs: Last Vital Signs Pulse 66 02/19/23 11:12 BP 122/62 02/19/23 11:12 BMI result Body Mass Index 23.4 Const General: cooperative, healthy appearing, comfortable and no acute distress Orientation/consciousness: patient oriented x3 Limitations: no limitations Resp Effort & Inspection: normal respiratory effort and able to speak in complete sentences Auscultation: clear to auscultation bilaterally Cardio Rate: regular rate Rhythm: regular rhythm Neuro General: patient oriented x3 Extrem General: Yes full ROM Psych Appearance: grossly normal and well kempt Mental Status: mental status grossly normal Speech and movement: Clear speech present Affect: Labile affect present Thought content: Normal thought content present Assessment & Plan Assessment & Plan (1) Poor historian: Comment: A 28-year-old male not a great historian, GI history unclear Has followed up several times multiple chronic GI complaints Previous EGD colonoscopy greater than 10 years ago Code(s): Z78.9 - Other specified health status (2) Bloating: Comment: FODmap Code(s): R14.0 - Abdominal distension (gaseous) Plan: Literature given (3) Chronic abdominal pain: Code(s): R10.9 - Unspecified abdominal pain; G89.29 - Other chronic pain (4) Chronic constipation: Comment: Maintain high-fiber diet consistent bowel regimen Code(s): K59.09 - Other constipation (5) Acid reflux: Comment: Not forthcoming- He will begin omeprazole 20 mg DAILY- Monitor symptoms Code(s): K21.9 - Gastro-esophageal reflux disease without esophagitis Qualifiers: Esophagitis presence: without esophagitis Qualified Code(s): K21.9 - Gastro-esophageal reflux disease without esophagitis (6) Asthma: Code(s): J45.909 - Unspecified asthma, uncomplicated Qualifiers: Asthma complication type: uncomplicated Asthma persistence: unspecified Asthma severity: mild Qualified Code(s): J45.909 - Unspecified asthma, uncomplicated Plan: EGD r/o pud , nonulcer dyspepsia esophagitis Plan EGD/ colon- anesthesia consult- asthma-GUERIN- MALE- MG split prep Orders: Orders EGD/[place] [facility]bo - GI Use Only 02/19/23 G89.29 - Other chronic pain, J45.909 - Unspecified asthma, uncomplicated, K21.9 - Gastro-esophageal reflux disease without esophagitis, K59.09 - Other constipation, R10.9 - Unspecified abdominal pain, R14.0 - Abdominal distension (gaseous), Z78.9 - Other specified health status Medications: New bisacodyl (Dulcolax (bisacodyl)) Take 4 tablets by mouth at 12:00pm the day before your procedure. 20 mg (4 x 5 mg) PO ONCE 1 day 4 tabs 0RF colonoscopy prep Z12.11 - Encounter for screening for malignant neoplasm of colon polyethylene glycol 3350 (Miralax) Take as directed by mouth the day before your procedure. 238 grams PO ONCE 1 day PRN 238 grams 0RF laxative effect Patient Instructions: EGD/ colon- anesthesia consult- asthma-GUERIN- MALE- MG split prep Reviewed procedures, need for escorted due to anesthesia as well as prep Encouraged to call with questions or concerns Appreciate the opportunity assist in the care this [place] Coding Level of Care Code Est Pt Level 3 (81310) Diagnoses Poor historian Z78.9 Bloating R14.0 Chronic abdominal pain R10.9; G89.29 Chronic constipation K59.09 Acid reflux K21.9 Esophagitis presence: without esophagitis Asthma J45.909 Asthma complication type: uncomplicated Asthma persistence: unspecified Asthma severity: mild Time Spent (min) 30
[2023-02-19 11:12] VITALS: BP 122/62; PULSE 66; BMI 23.4
== END 2023-02-19 12:51 | disposition home or self-care (01) ==
PROVIDERS: PCP Internal Medicine; Visit Provider Physician Assistant
DX: Z78.9 Other specified health status (principal); R14.0 Abdominal distension (gaseous); R10.9 Unspecified abdominal pain; G89.29 Other chronic pain; K59.09 Other constipation; K21.9 Gastro-esophageal reflux disease without esophagitis; J45.909 Unspecified asthma, uncomplicated
CPT/HCPCS: 99213

== ENCOUNTER → 2023-02-19 10:59 | Outpatient (BNVA) | payer OTHER, SELFPAY | PROVIDERS: PCP Internal Medicine; Visit Provider Physician Assistant | DX: K59.09 Other constipation (principal); K21.9 Gastro-esophageal reflux disease without esophagitis; R14.0 Abdominal distension (gaseous); R10.9 Unspecified abdominal pain; J45.909 Unspecified asthma, uncomplicated; G89.29 Other chronic pain; Z78.9 Other specified health status | CPT/HCPCS: 99212 ==

== ENCOUNTER 2023-03-18 13:29 | Outpatient (AMB) | payer OTHER, SELFPAY ==
--- NOTE | 2023-03-18 13:31 | MHC.PC.OV ---
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 Accompanied by: Self / Same As Patient Allergies methylprednisolone [Methylprednisolone] Allergy (Unknown, Verified 03/18/23 14:16) UNKNOWN Penicillins [PENICILLINS] Allergy (Unknown, Verified 03/18/23 14:16) RASH amitriptyline Adverse Reaction (Unknown, Verified 03/18/23 14:16) increased headaches metoclopramide [From REGLAN] Adverse Reaction (Unknown, Verified 03/18/23 14:16) RASH trazodone Adverse Reaction (Unknown, Verified 03/18/23 14:16) increased headaches Medication List - Last Reconciled 03/18/23 by Jovan Mac MD bisacodyl (Dulcolax (bisacodyl)) 20 mg (4 x 5 mg) PO ONCE 1 day bupropion HCl (Wellbutrin XL) 150 mg PO QAM 30 days cetirizine 10 mg PO DAILY PRN docusate sodium (Colace) 200 mg (2 x 100 mg) PO BEDTIME fluticasone propionate 110 mcg/actuation (Flovent HFA) 1 puff PO BID lorazepam 1 mg PO DAILY PRN 14 days methylcellulose (laxative) (Citrucel) 500 mg PO TID montelukast 10 mg PO DAILY omeprazole 40 mg PO DAILY ondansetron 4 mg PO ONCE PRN polyethylene glycol 3350 (Miralax) 17 grams PO DAILY polyethylene glycol 3350 (Miralax) 238 grams PO ONCE PRN 1 day sumatriptan succinate TAKE 1 TABLET BY MOUTH EVERY DAY FOR MIGRAINES MAY REPEAT AFTER 2 HOURS topiramate 50 mg PO DAILY PRN Ventolin HFA 90 mcg/actuation (albuterol sulfate) 2 puffs inhalation Q6H PRN NS zolpidem 10 mg PO BEDTIME PRN 30 days Tobacco use date assessed: 03/18/23 Dental Screening Dental Screen Date: 03/18/23 Did you have a dental visit in the last 12 months?: Yes Did you have a dental problem in the last 6 months where you did not have access to dental care?: No Was dental information given to patient?: Patient has dentist HPI 4 month f/u HPI Details Patient comes in today for his follow up visit States that he feels okay Still has on and off headaches (about 1 to 2 times a week) but states that these are promptly relieved with his current Rx He continues to follow up with neurology regularly for his headaches He denies any chest pains, no SOB No nausea/vomiting but still has recurrent heartburns and occasional abdominal (epigastric) pain and discomfort Was seen by GI for follow up last month and he is now scheduled to undergo EGD next month for further evaluation No change in bowel habits noted He continues to experience recurrent joint pains - relieved with OTC pain relievers Needs a couple of his Rx refilled PFSH Medical History Allergic rhinitis Anxiety Asthma GERD (gastroesophageal reflux disease) Insomnia Migraine Pure hypercholesterolemia Surgical History History of appendectomy History of ear, nose, and throat (ENT) surgery Family History Father Asthma Mother Fibromyalgia HTN (hypertension) Social History Household Members: Family Both parents involved: Yes Housing: House Alcohol intake: never Patient Tobacco Use Status: Never used Tobacco e-Cigarette/Vaping Use: Never Used Second Hand Smoke Exposure: Yes service: No Current occupational status: unemployed Cognitive needs: No Hearing needs: No Vision needs: Yes (glasses) Questionnaire PHQ-9 Over the last 2 weeks, how often have you been bothered by any of the following problems? 1. Little interest or pleasure in doing things: not at all 2. Feeling down, depressed, or hopeless: not at all 3. Trouble falling or staying asleep, or sleeping too much: not at all 4. Feeling tired or having little energy: not at all 5. Poor appetite or overeating: not at all 6. Feeling bad about yourself - or that you are a failure or have let yourself or your family down: not at all 7. Trouble concentrating on things, such as reading the newspaper or watching television: not at all 8. Moving or speaking so slowly that other people could have noticed. Or the opposite - being so fidgety or restless that you have been moving around a lot more than usual: not at all 9. Thoughts that you would be better off or of hurting yourself in some way: not at all Total score: 0 Depression Screening Interpretation: Negative 40738 - PHQ-9 Billing: Yes Source: Developed by Drs. Javier Mueller, Bridgette Wang, Herman Lizarraga and colleagues, with an educational hiram from [employer]. Thrive Questionnaire Date Thrive assessed: 03/18/23 I am a: Patient What is your living situation today?: I have a steady place to live Within the past 12 months, did the food you bought not last and you didn't have the money to get more?: Never true Within the past 12 months, did you worry whether your food would run out before you got money to buy more?: Never true Do you have trouble paying for medicines?: No Do you have trouble getting transportation to medical appointments?: No Do you have trouble paying your heating and electricity bill?: No Do you have trouble taking care of your child, family member or friend?: No Do you have trouble with day-to-day activities such as bathing, preparing meals, shopping, managing finances, etc.?: No Are you currently unemployed and looking for a job?: No Are you interested in more education?: No Please select the resources that you would like help with: None Currently or been in a relationship where the following occur: no concerns reported AUDIT C Alcohol Use Questionnaire (AUDIT-C) 1. How often do you have a drink containing alcohol?: Never 2. How many drinks containing alcohol do you have on a typical day when you are drinking?: 1 or 2 3. How often do you have six or more drinks on one occasion?: Never Total Score: 0 Score Reviewed/Action Taken: Yes TESS-7 AMB Questionnaire TESS-7 Date TESS - 7 assessed: 03/18/23 Feeling nervous, anxious, or on edge: 1 = Several days Not being able to stop or control worryin = Not at all Worrying too much about different things: 0 = Not at all Trouble relaxin = Not at all Being so restless that it is hard to sit still: 0 = Not at all Becoming easily annoyed or irritable: 0 = Not at all Feeling afraid as if something awful might happen: 0 = Not at all Total TESS-7 score (0-4 normal; 5-9 mild; 10-14 moderate; 15-21 severe): 1 Source: Developed by Drs. Javier Mueller, Bridgette Wang, Herman Lizarraga and colleagues, with an educational hiram from [employer]. TESS-7 Assessment Billing TESS-7 Assessment Tool: TESS-7 Assessment 78741 Review of Systems Const Reports difficulty sleeping (Rx helps), Reports fatigue, Denies fever(s) and Denies headache(s) ENT Denies dysphagia, Denies dizziness, Denies otalgia, Denies headache(s), Denies odynophagia and Denies sore throat Card Denies chest pain, Denies palpitations and Denies dyspnea Resp Denies chest congestion, Denies cough and Denies dyspnea GI Reports abdominal pain (on and off, mostly epigastric), Denies constipation, Denies dysphagia, Reports heartburn, Denies diarrhea, Denies nausea, Denies odynophagia and Denies vomiting Musc Reports arthralgias (on and off, involving multiple joints) Neuro Denies dizziness and Denies headache(s) Psych Reports anxiety (Rx helps) Endo Reports fatigue and Denies palpitations Physical exam (Primary Care) Vital Signs: Last Vital Signs Pulse 80 03/18/23 13:32 BP 110/80 03/18/23 13:32 Pulse Ox 98 03/18/23 13:32 Oxygen Delivery Method Room Air 03/18/23 13:32 BMI result Body Mass Index 24.1 Tobacco/Smoking Status: Tobacco use Status Tobacco use date assessed 03/18/23 03/18/23 13:37 Patient Tobacco Use Status Never used Tobacco 03/18/23 13:37 e-Cigarette/Vaping Use Never Used 03/18/23 13:37 PHQ-9: PHQ-9 Score PHQ-9: Total score 0 03/18/23 13:37 Depression Screening Interpretation: Negative Thrive Assessment: Date of Thrive Assessment Date Thrive assessed 03/18/23 03/18/23 13:37 Currently or been in a relationship where the following occur: no concerns reported Const General: no acute distress and alert HENMT Ears: TM's normal bilaterally and EAC's normal Throat: Yes posterior oropharynx normal and Yes tonsils normal (no TP congestion) Neck Neck: Yes no lymphadenopathy and Yes supple Resp Auscultation: clear to auscultation bilaterally, no rales and no wheezes Cardio Rate: regular rate Rhythm: regular rhythm Heart sounds: no murmurs GI Palpation (GI): Soft to palpation, Tenderness to palpation present (GI) (mild) in the epigastrum, no guarding, not rigid and No Rebound tenderness present Auscultation: normal bowel sounds Extrem General: Yes no clubbing, cyanosis or edema Assessment and Plan Assessment & Plan (1) Migraine: Code(s): G43.909 - Migraine, unspecified, not intractable, without status migrainosus Qualifiers: Migraine type: unspecified Status migrainosus presence: without status migrainosus Intractability: not intractable Qualified Code(s): G43.909 - Migraine, unspecified, not intractable, without status migrainosus Plan: Reinforced avoidance of any potential migraine triggers Continue Topiramate 50 mg Q HS for headache prophylaxis and Sumatriptan 25 mg PRN Follow up with neurology as scheduled (2) Pure hypercholesterolemia: Code(s): E78.00 - Pure hypercholesterolemia, unspecified Plan: Advised that his cholesterol numbers have increased slightly from previous although they are still within acceptable range Reinforced low cholesterol diet Will recheck labs and fasting lipids again sometime next year for follow up (3) GERD (gastroesophageal reflux disease): Comment: Symptoms vague, will change PPI Encourage avoidance of culprits May be low yield, EGD Code(s): K21.9 - Gastro-esophageal reflux disease without esophagitis Qualifiers: Esophagitis presence: without esophagitis Qualified Code(s): K21.9 - Gastro-esophageal reflux disease without esophagitis Plan: Dietary restrictions reinforced Continue Citrucel 500 mg TID Continue Omeprazole 20 mg QD Follow up with GI as scheduled Due to his recurrent symptoms, he is now scheduled to undergo EGD next month for further evaluation (4) Asthma: Code(s): J45.909 - Unspecified asthma, uncomplicated Qualifiers: Asthma complication type: uncomplicated Asthma persistence: unspecified Asthma severity: mild Qualified Code(s): J45.909 - Unspecified asthma, uncomplicated Plan: Stable - continue Flovent HFA 110 mcg 1 inhalation BID, Montelukast 10 mg QD and Albuterol HFA 2 inhalations every 6 hours as needed (5) Allergic rhinitis: Code(s): J30.9 - Allergic rhinitis, unspecified Qualifiers: Allergic rhinitis seasonality: seasonal Allergic rhinitis trigger: pollen Qualified Code(s): J30.1 - Allergic rhinitis due to pollen Plan: Continue Fluticasone 50 mcg nasal spray QD, Montelukast 10 mg QD and Cetirizine 10 mg QD PRN (6) Tachycardia: Code(s): R00.0 - Tachycardia, unspecified Plan: Patient previously could not complete his 30 days cardiac event monitor last month as he developed some allergic reaction to the adhesive used for the monitoring device Symptoms are reportedly not occurring as often as they were a few months ago Follow up with cardiology as scheduled (7) Asymptomatic microscopic hematuria: Code(s): R31.21 - Asymptomatic microscopic hematuria Plan: Patient is currently asymptomatic Will continue to monitor this regularly If this persists, will consider renal US for further evaluation (8) Insomnia: Code(s): G47.00 - Insomnia, unspecified Qualifiers: Insomnia type: unspecified Qualified Code(s): G47.00 - Insomnia, unspecified Plan: Sleep hygiene reinforced Continue Zolpidem 10 mg Q HS PRN (9) Anxiety: Code(s): F41.9 - Anxiety disorder, unspecified Plan: Continue Bupropion XL 150 mg Q AM and Lorazepam 1 mg QD PRN Plan Follow up in July 2023 Medications: Changed From topiramate 50 mg PO DAILY To topiramate 50 mg PO BEDTIME Refilled montelukast 10 mg PO DAILY 90 tabs 0RF cetirizine 10 mg PO DAILY PRN 90 tabs 5RF for allergies Coding Level of Care Code Est Pt Level 3 (80862) Diagnoses Migraine G43.909 Migraine type: unspecified Status migrainosus presence: without status migrainosus Intractability: not intractable Pure hypercholesterolemia E78.00 GERD (gastroesophageal reflux disease) K21.9 Esophagitis presence: without esophagitis Asthma J45.909 Asthma complication type: uncomplicated Asthma persistence: unspecified Asthma severity: mild Allergic rhinitis J30.1 Allergic rhinitis seasonality: seasonal Allergic rhinitis trigger: pollen Tachycardia R00.0 Asymptomatic microscopic hematuria R31.21 Insomnia G47.00 Insomnia type: unspecified Anxiety F41.9 Additional Codes TESS-7 Assessment Billing - TESS-7 Assessment Tool: TESS-7 Assessment [id number] ([id number])
[2023-03-18 13:32] VITALS: BP 110/80; PULSE 80; O2SAT 98; BMI 24.1
== END 2023-03-18 14:24 | disposition home or self-care (01) ==
PROVIDERS: PCP Internal Medicine; Visit Provider Internal Medicine
DX: G43.909 Migraine, unspecified, not intractable, without status migrainosus (principal); K21.9 Gastro-esophageal reflux disease without esophagitis; J45.909 Unspecified asthma, uncomplicated; F41.9 Anxiety disorder, unspecified; E78.00 Pure hypercholesterolemia, unspecified; J30.1 Allergic rhinitis due to pollen; R00.0 Tachycardia, unspecified; R31.21 Asymptomatic microscopic hematuria; G47.00 Insomnia, unspecified
CPT/HCPCS: 99213

== ENCOUNTER 2023-04-10 09:38 | Outpatient (AMB) | payer OTHER, SELFPAY ==
--- NOTE | 2023-04-10 09:39 | MHC.OFFVIS ---
Intake Vital Signs 04/10/23 09:46 Height 5 ft 11 in Weight 172 lb 6.424 oz BMI 24.0 BP 112/76 Blood Pressure Location Rt brachial Position Sitting Pulse 85 Pulse Source Pulse Oximeter Temp 98.4 F Pulse Oximetry (%) 98 Oxygen Delivery Method Room Air Intake Visit Reasons: Joint Pain Intake Note: New patient here for joint pain. 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 Required: No Accompanied by: Self / Same As Patient Allergies methylprednisolone [Methylprednisolone] Allergy (Unknown, Verified 04/10/23 09:40) UNKNOWN Penicillins [PENICILLINS] Allergy (Unknown, Verified 04/10/23 09:40) RASH amitriptyline Adverse Reaction (Unknown, Verified 04/10/23 09:40) increased headaches metoclopramide [From REGLAN] Adverse Reaction (Unknown, Verified 04/10/23 09:40) RASH trazodone Adverse Reaction (Unknown, Verified 04/10/23 09:40) increased headaches Medication List - Last Reconciled 04/10/23 by Hardeep Omalley MD bisacodyl (Dulcolax (bisacodyl)) 20 mg (4 x 5 mg) PO ONCE 1 day bupropion HCl (Wellbutrin XL) 150 mg PO QAM 30 days cetirizine 10 mg PO DAILY PRN docusate sodium (Colace) 200 mg (2 x 100 mg) PO BEDTIME fluticasone propionate 110 mcg/actuation (Flovent HFA) 1 puff PO BID lorazepam 1 mg PO DAILY PRN 14 days meclizine 25 mg PO TID PRN methylcellulose (laxative) (Citrucel) 500 mg PO TID montelukast 10 mg PO DAILY omeprazole 40 mg PO DAILY ondansetron 4 mg PO ONCE PRN polyethylene glycol 3350 (Miralax) 238 grams PO ONCE PRN 1 day sumatriptan succinate mg PO Ventolin HFA 90 mcg/actuation (albuterol sulfate) 2 puffs inhalation Q6H PRN NS zolpidem 10 mg PO BEDTIME PRN 30 days HPI HPI Comments History of Present Illness Details The patient presents for evaluation of multiple areas of joint pain. He says this dates back to his high school years. He did have an injury to the left knee that resulted in swelling. He also had a swollen ankle after a fall. These were athletic related activities. The ankle occasionally has a popping sound. The knee is occasionally swollen with weight-bearing activity. He also has other areas of pain including the shoulders, wrists, hands, and the other ankle. None of the other joints seem to show any swelling. He apparently did see a solar process engineer when he was in the pediatric age group but I could not locate any note. It was at [facility] but he does not know who the doctor was. He used to take naproxen for his symptoms but recently just been using lidocaine patches and compressions stockings. He also has problems with migraine headaches, asthma and anxiety. 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 [facility] Medical History Allergic rhinitis Anxiety Asthma GERD (gastroesophageal reflux disease) Insomnia Migraine Pure hypercholesterolemia Surgical History History of ear, nose, and throat (ENT) surgery History of appendectomy Family History (Updated 04/10/23 @ 09:54 by LUIS FELIPE Domínguez) Father Asthma Arthritis Diabetes Cirrhosis Mother Fibromyalgia HTN (hypertension) Migraines Heart disease Social History (Updated 04/10/23 @ 09:54 by LUIS FELIPE Domínguez) Household Members: Family Both parents involved: Yes Housing: House Alcohol intake: never Patient Tobacco Use Status: Never used Tobacco e-Cigarette/Vaping Use: Never Used Second Hand Smoke Exposure: Yes service: No Current occupational status: employed 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 He does get occasional headaches thought to be migraines. Negative for vision change and dizziness ENT Details: Negative for hearing change, tinnitus, oral ulcer, nose bleeds and oral dryness. Card Details: Negative chest pain, edema and syncope Resp Details: History of asthma but with current treatment he has no SOB, cough and wheezing GI Details: Occasional heartburn, helped with omeprazole. Negative nausea, abdominal pain, bowel changes, diarrhea, constipation and bloody stool. Details: Negative for dysuria, hematuria, nocturia, decreased force/flow and genital discharge Skin/Breast Details: Negative for itching, rash, hives, Raynaud's symptoms, sun sensitivity, and skin cancer Neuro Details: Intermittent migraine headaches as noted above. Negative for epilepsy, palsy, stroke, changes in speech, tingling and weakness Psych Details: Takes meds for anxiety. Negative for anxiety, depression and stress Endo Details: Negative for polyuria and polydypsia Rohith/Lymph Details: Negative for excessive bruising or bleeding. Physical Exam Vital Signs: Last Vital Signs Temp 98.4 F 04/10/23 09:46 Pulse 85 04/10/23 09:46 BP 112/76 04/10/23 09:46 Pulse Ox 98 04/10/23 09:46 Oxygen Delivery Method Room Air 04/10/23 09:46 BMI result Body Mass Index 24.0 APPEARANCE: Patient in no acute distress EYES no redness, pupils equal and reactive to light, eyelids normal EARS: External ear normal, canal clear and tympanic membrane normal. NOSE/SINUS: Airflow through both nares, no nasal discharge, no bleeding THROAT: Oral mucosa moist, no ulcerations NECK: No thyromegaly or masses, no adenopathy, trachea midline. HEART: Regulrar rhythm, S1-S2 heard, no murmurs, rubs or gallops. LUNG: Clear to percussion and auscultation ABD: Normal bowel sounds, no organomegaly, masses or tenderness. EXTREMITIES: No edema, no calf tenderness, normal peripheral pulses. NEURO: Oriented and alert x3. No focal weakness. Reflexes symmetric. Gait normal. SKIN: No inflammatory or neoplastic lesions. Normal color and turgor JOINT EXAM:.?? Cervical Spine:.? Full range of motion with mild discomfort at the extremes. There is some left-sided cervical muscle tenderness. Thoracic Spine:.? No scoliosis.? No tenderness on palpation. Lumbar Spine:.? Alignment normal.? Full range of motion without pain, no tenderness. Chest Wall:.? No tenderness, swelling, increased warmth or erythema. Hands:.? Normal pain-free range of motion without tenderness, swelling, increased warmth or erythema. Able to make a full fist and has a good rig manager strength. Wrists:.? Normal pain-free range of motion without tenderness, swelling, increased warmth or erythema. Elbows:. Normal pain-free range of motion without tenderness, swelling, increased warmth or erythema. Shoulders:.?? Full range of motion without pain. No tenderness, weakness, swelling, increased warmth or erythema. Hips:.? Full range of motion without pain. Hip bursa:.? No tenderness. Knees:.??Left: Slight pain at full extension. There is some minimal medial compartment tenderness without redness or effusion. No popliteal swelling or tenderness. Right: Normal pain-free range of motion without tenderness, swelling, increased warmth or erythema.? There is no effusion or crepitation Ankles:.? Normal pain-free range of motion without tenderness, swelling, increased warmth or erythema. Feet:.? Normal pain-free range of motion without tenderness, swelling, increased warmth or erythema. Tender points:.? Mild tenderness in the left anterior chest, both trapezius, both lateral epicondyles, and medial knees. ? Results Reviewed Results Reviewed: Labs from 2019: ZEESHAN negative Assessment & Plan Assessment & Plan (1) Knee pain, bilateral: Code(s): M25.561 - Pain in right knee; M25.562 - Pain in left knee (2) Ankle pain, right: Code(s): M25.571 - Pain in right ankle and joints of right foot (3) Polyarthralgia: Code(s): M25.50 - Pain in unspecified joint Plan The patient has longstanding joint complaints without any signs on exam of an active inflammatory process. He symptoms have been present now for 8-10 years. An ZEESHAN in the past was negative. There are a few tender points so I think mostly this is fibromyalgia. He has some associated symptoms of anxiety and migraine headache. I gave him some written information on fibromyalgia to review. We will x-ray the left knee and right ankle. Further lab work to look for inflammatory markers and antibodies is ordered. The left knee and right ankle which are areas of old trauma may have secondary osteoarthritis at this point. He does have GERD so I think resuming an NSAID probably would not be the best idea. He should stick with his lidocaine patches and perhaps add some acetaminophen, up to 1 g t.i.d. if needed. We will get back to him after the x-rays and labs return. Orders: Orders Complete Blood Count Auto Diff Today M25.50 - Pain in unspecified joint, M25.561 - Pain in right knee, M25.562 - Pain in left knee Comprehensive Met. Panel Today M25.50 - Pain in unspecified joint, M25.561 - Pain in right knee, M25.562 - Pain in left knee Cyclic Citrullinated Peptide Today M25.50 - Pain in unspecified joint, M25.561 - Pain in right knee, M25.562 - Pain in left knee Rheumatoid Factor Today M25.50 - Pain in unspecified joint, M25.561 - Pain in right knee, M25.562 - Pain in left knee XR ankle RT min 3V Today M25.571 - Pain in right ankle and joints of right foot XR knee LT 3V Today M25.571 - Pain in right ankle and joints of right foot Erythrocyte Sedimentation Rate Today M25.50 - Pain in unspecified joint, M25.561 - Pain in right knee, M25.562 - Pain in left knee C Reactive Protein Today M25.50 - Pain in unspecified joint, M25.561 - Pain in right knee, M25.562 - Pain in left knee Coding Level of Care Code New Pt Level 3 (20631) Diagnoses Knee pain, bilateral M25.561; M25.562 Ankle pain, right M25.571 Polyarthralgia M25.50
[2023-04-10 09:46] VITALS: BP 112/76; PULSE 85; TEMP 36.9; O2SAT 98; BMI 24.0
== END 2023-04-10 10:48 | disposition home or self-care (01) ==
PROVIDERS: PCP Internal Medicine; Visit Provider Internal Medicine Rheumatology
DX: M25.561 Pain in right knee (principal); M25.562 Pain in left knee; M25.571 Pain in right ankle and joints of right foot; M25.50 Pain in unspecified joint
CPT/HCPCS: 99203

== ENCOUNTER → 2023-04-10 09:38 | Outpatient (BNVA) | payer OTHER, SELFPAY | PROVIDERS: PCP Internal Medicine; Visit Provider Internal Medicine Rheumatology ==

== ENCOUNTER 2023-04-17 10:19 | Day surgery (SDC) | payer OTHER, SELFPAY ==
[2023-04-15 16:51] VITALS: BMI 23.4
--- NOTE | 2023-04-16 12:08 | HO.ANESPROP2 ---
Documented by User: Columba Xie NP 04/16/23 12:08 HPI - Anesthesia Eval Consult details Narrative: 28yo M for Upper Endoscopy and Colonoscopy PMF Active Problems Active Problems: All Active Problems (Updated 04/10/23 @ 10:41 by Hardeep Omalley MD) Knee pain, bilateral (Acute) Ankle pain, right (Acute) Chronic abdominal pain (Acute) Poor historian (Acute) Polyarthralgia (Acute) Ingrown right big toenail (Acute) Elevated blood pressure reading (Acute) Asymptomatic microscopic hematuria (Acute) Elevated TSH (Acute) Hyperproteinemia (Acute) GERD (gastroesophageal reflux disease) (Acute) Chronic constipation (Acute) Elevated blood protein (Acute) Tachycardia (Acute) TESS (generalized anxiety disorder) (Acute) Pure hypercholesterolemia (Acute) Acid reflux (Acute) Anxiety (Acute) Insomnia (Acute) Migraine (Acute) Allergic rhinitis (Acute) Asthma (Acute) Past Medical History Medical History Allergic rhinitis Anxiety Asthma GERD (gastroesophageal reflux disease) Insomnia Migraine Pure hypercholesterolemia Family History Family History (Updated 04/10/23 @ 09:54 by LUIS FELIPE Domínguez) Father Asthma Arthritis Diabetes Cirrhosis Mother Fibromyalgia HTN (hypertension) Migraines Heart disease Surgical History Surgical History History of ear, nose, and throat (ENT) surgery History of appendectomy Social History Social History (Updated 04/10/23 @ 09:54 by LUIS FELIPE Domínguez) Household Members: Family Both parents involved: Yes Housing: House Alcohol intake: never Patient Tobacco Use Status: Never used Tobacco e-Cigarette/Vaping Use: Never Used Second Hand Smoke Exposure: Yes service: No Current occupational status: employed 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 Cognitive needs: No Hearing needs: No Vision needs: Yes (glasses) Meds Allergies Allergy/AdvReac Type Severity Reaction Status Date / Time methylprednisolone Allergy Unknown UNKNOWN Verified 04/10/23 09:40 [Methylprednisolone] Penicillins [PENICILLINS] Allergy Unknown RASH Verified 04/10/23 09:40 amitriptyline AdvReac Unknown increased Verified 04/10/23 09:40 headaches metoclopramide [From REGLAN] AdvReac Unknown RASH Verified 04/10/23 09:40 trazodone AdvReac Unknown increased Verified 04/10/23 09:40 headaches Home Medications Medication Instructions Recorded Confirmed Last Taken Type meclizine 25 mg tablet 25 mg PO TID PRN 04/10/23 04/10/23 Unknown History sumatriptan succinate 50 mg tablet mg PO 04/10/23 04/10/23 Unknown History Exam Exam Date and Time: April 16, 2023 1208 Height,Weight and Vital Signs: Height 5 ft 11 in Weight 76.204 kg Documented by User: George Fong MD 04/17/23 17:39 HPI - Anesthesia Eval Consult details Narrative: 28yo M for Upper Endoscopy and Colonoscopy Asthma, Anxiety , GERD PMFSH Past Medical History Medical History Allergic rhinitis Anxiety Asthma GERD (gastroesophageal reflux disease) Insomnia Migraine Pure hypercholesterolemia Functional capacity: independent ambulation Family History Family History (Updated 04/10/23 @ 09:54 by LUIS FELIPE Domínguez) Father Asthma Arthritis Diabetes Cirrhosis Mother Fibromyalgia HTN (hypertension) Migraines Heart disease Family history of problems with anesthesia: No Surgical History Surgical History History of ear, nose, and throat (ENT) surgery History of appendectomy History of Problems with Anesthesia: No Social History Social History (Updated 04/10/23 @ 09:54 by LUIS FELIPE Domínguez) Household Members: Family Both parents involved: Yes Housing: House Alcohol intake: never Patient Tobacco Use Status: Never used Tobacco e-Cigarette/Vaping Use: Never Used Second Hand Smoke Exposure: Yes service: No Current occupational status: employed 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 Cognitive needs: No Hearing needs: No Vision needs: Yes (glasses) Meds Allergies Allergy/AdvReac Type Severity Reaction Status Date / Time methylprednisolone Allergy Unknown UNKNOWN Verified 04/10/23 09:40 [Methylprednisolone] Penicillins [PENICILLINS] Allergy Unknown RASH Verified 04/10/23 09:40 amitriptyline AdvReac Unknown increased Verified 04/10/23 09:40 headaches metoclopramide [From REGLAN] AdvReac Unknown RASH Verified 04/10/23 09:40 trazodone AdvReac Unknown increased Verified 04/10/23 09:40 headaches Home Medications Medication Instructions Recorded Confirmed Last Taken Type meclizine 25 mg tablet 25 mg PO TID PRN 04/10/23 04/10/23 Unknown History sumatriptan succinate 50 mg tablet mg PO 04/10/23 04/10/23 Unknown History Exam Airway Mallampati Class: III Neck ROM: Limited Loose/Missing/Broken Teeth: Yes Assessment and Plan Assessment Anesthesia Assessment: Anesthesia Plan Discussed and Chart Reviewed Final Anesthetic Review Family History of Problems with Anesthesia: No History of Problems with Anesthesia: No NPO: Yes ASA Class: II Final Preanesthetic Review: Meds/Allgs Chart Reviewed, Consent Obtained/Reviewed and Anes Risks/Benef Reviewed Patient Risk: Intermediate Procedure Risk: Intermediate Anesthetic Plan Anesthetic Plan: MAC: and Agree w/ Assess. and Plan Disposition: Standard PACU
[2023-04-17 11:34] VITALS: BMI 23.7
--- NOTE | 2023-04-17 13:15 | MHC.SHP ---
Pre-Procedural Eval Section A Date of Service: 04/17/23 Section B Chief Complaint: GERD, Abdominal distension (gaseous) Details of Present Illness: constipation since childhood Relevant Family History (Specify if Yes): No Relevant Social History: None Present Medications: see Short Stay Collaborative assessment Medical History: Significant History (Allergic rhinitis Anxiety Asthma GERD (gastroesophageal reflux disease) Insomnia Migraine Pure hypercholesterolemia) History of Previous Operations: Relevant previous surgery/procedure and date(s) (History of ear, nose, and throat (ENT) surgery History of appendectomy) Allergies: Allergies Allergy/AdvReac Type Severity Reaction Status Date / Time methylprednisolone Allergy Unknown UNKNOWN Verified 04/10/23 09:40 [Methylprednisolone] Penicillins [PENICILLINS] Allergy Unknown RASH Verified 04/10/23 09:40 amitriptyline AdvReac Unknown increased Verified 04/10/23 09:40 headaches metoclopramide [From REGLAN] AdvReac Unknown RASH Verified 04/10/23 09:40 trazodone AdvReac Unknown increased Verified 04/10/23 09:40 headaches Review of Systems Sugical H&P ROS: Negative: Constitution, Cardiovascular, Respiratory, Neurological, Psychiatric, Hem-Onc, Allergic/Immunologic, Gastrointestinal, Genitourinary, Musculoskeletal, Integumentary, Endocrine and Eyes/Ears/Nose/Throat Exam Surgical H&P Exam: Normal: HEENT, Normal: Heart, Normal: Lungs, Normal: Extremities, Normal: Abdomen, Normal: Skin and Normal: Neurological Plan Diagnosis/Plan: Unchanged I have reviewed the history and physical and performed a pertinent physical examination on my patient. No changes have occurred unless specified. Time Spent With Patient Time: Total time managing care of this patient today ____ minutes.
--- NOTE | 2023-04-17 13:16 | W.PM.OPN ---
Operative Note Operative Note Date of Service: 04/17/23 Narrative: Operative Information Procedure Description: EGD, Colonoscopy Indication: chronic constipation and GERD Anesthesia: MAC FLEXIBLE TRANSORAL UPPER GASTROINTESTINAL ENDOSCOPY AND COLONOSCOPY PROCEDURE NOTE UPPER ENDOSCOPY Consent: Indications for the procedure and potential complications of bleeding, perforation, reaction to medications and missed diagnosis were discussed with the patient and informed consent was obtained. Instrument: Olympus GIF H 190 J mid size upper endoscope Monitoring: Vital signs and clinical assessment, continuous EKG monitoring, Pulse oximetry, Carbon Dioxide monitoring and blood pressure monitoring were done throughout the procedure. Procedure: The patient was placed in the left lateral decubitis position and pre-procedure medications were administered and a bite block was placed. The endoscope was inserted into the mouth and advanced under direct vision to the third part of duodenum. A careful inspection was made as the upper endoscope was withdrawn including a retroflexed examination of the proximal stomach; Findings and interventions are described below. Findings: Larynx:normal Esophagus: GE junction at 41 cm, diaphragm hiatus at 41 cm, mild esophagitis at GEJ, bx taken as well as from distal and proximal esophagus Stomach: Mild erythema. Biopsies were obtained. Grade 2 flap valve on retroflexed examination of the cardia. Duodenum: Normal bulb and descending duodenum, bx taken Intervention: Biopsies as noted above COLONOSCOPY Instrument: Olympus variable stiffness pediatric scope 190L Colonoscopy Monitoring: Vital signs and clinical assessment, continuous EKG monitoring, Pulse oximetry, Carbon Dioxide monitoring and blood pressure monitoring were done throughout the procedure. Colon withdrawal time was 8 minutes. Procedure: The patient was placed in the left lateral decubitis position and pre-procedure medications were administered. After a digital rectal examination of the ano-rectum, the video colonoscope was inserted into the rectum and advanced through the colon to the cecum/TI. The colonoscope was slowly withdrawn in a retrograde panoramic fashion and the colon mucosa was carefully examined including a retroflexed view of the rectum. Findings and interventions are described below. Procedure Difficulty:easy Findings: Terminal Ileum-normal, random bx taken Random colon bx taken Cecum:normal Ascending Colon: normal Transverse Colon -normal Descending Colon:normal Sigmoid Colon: normal Rectum: Retroflexion with small internal hemorrhoids, grade I, using cold snare rectal tissue sampled for ganglion cells to r/o Hirschsprungs Anorectum - normal Colon preparation: [place] Bowel Preparation Scale Right colon; 3 Transverse colon: 3 Left colon; 3 (0 = Unprepared colon segment with mucosa not seen due to solid stool that cannot be cleared. 1 = Portion of mucosa of the colon segment seen, but other areas of the colon segment not well seen due to staining, residual stool and/or opaque liquid. 2 = Minor amount of residual staining, small fragments of stool and/or opaque liquid, but mucosa of colon segment seen well. 3 = Entire mucosa of colon segment seen well with no residual staining, small fragments of stool or opaque liquid) Impression and Post Procedure Diagnosis: Endoscopy Findings: esophagitis Colonoscopy Findings: internal hemorrhoids Plan: Await Pathology results Repeat Colonoscopy age 45 or earlier if clinically indicated High fiber diet leaflet avoid straining at stool, epsom salts and sitz bath, anusol supps or cream cont with PPI Above findings were reviewed with the patient and relevant handouts were provided if indicated.
[2023-04-17 14:05] VITALS: BP 99/67; PULSE 93; RESP 15; TEMP 36.8; O2SAT 99
[2023-04-17 14:20] VITALS: BP 117/71; PULSE 89; RESP 16; TEMP 36.6; O2SAT 98
== END 2023-04-17 14:39 | disposition home or self-care (01) ==
PROVIDERS: PCP Internal Medicine; Visit Provider Internal Medicine Gastroenterology
PROC: (CPT 45385; principal; 2023-04-17 12:20)
DX: K59.09 Other constipation (principal); K64.0 First degree hemorrhoids; R10.9 Unspecified abdominal pain; G89.29 Other chronic pain; R14.0 Abdominal distension (gaseous); K21.9 Gastro-esophageal reflux disease without esophagitis; K20.80 Other esophagitis without bleeding; K44.9 Diaphragmatic hernia without obstruction or gangrene; J45.909 Unspecified asthma, uncomplicated; F41.1 Generalized anxiety disorder; E78.00 Pure hypercholesterolemia, unspecified; G43.909 Migraine, unspecified, not intractable, without status migrainosus; Z79.899 Other long term (current) drug therapy; Z88.0 Allergy status to penicillin; Z88.8 Allergy status to other drugs, medicaments and biological substances
CPT/HCPCS: 45385; 45380; 43239; 88305; 88342; J3010

== ENCOUNTER → 2023-04-17 10:19 | Outpatient (BNV) | payer OTHER, SELFPAY | PROVIDERS: PCP Internal Medicine; Visit Provider Internal Medicine Gastroenterology | DX: K59.04 Chronic idiopathic constipation (principal); K21.00 Gastro-esophageal reflux disease with esophagitis, without bleeding; D12.8 Benign neoplasm of rectum; K64.0 First degree hemorrhoids | CPT/HCPCS: 43239; 45385 ==

== ENCOUNTER 2023-05-01 11:52 | Outpatient (AMB) | payer OTHER, SELFPAY ==
--- NOTE | 2023-05-01 11:54 | MHC.OFFVIS ---
Intake Vital Signs 05/01/23 11:55 Height 5 ft 11 in Weight 169 lb 12.095 oz BMI 23.7 BP 129/62 Blood Pressure Location Lt brachial Position Sitting Pulse 81 Pulse Oximetry (%) 97 Intake Visit Reasons: s/p egd/colon- Johansen Intake Note: Nitesh presents in the office as a follow up. CC: Allergies methylprednisolone [Methylprednisolone] Allergy (Unknown, Verified 05/01/23 11:56) UNKNOWN Penicillins [PENICILLINS] Allergy (Unknown, Verified 05/01/23 11:56) RASH amitriptyline Adverse Reaction (Unknown, Verified 05/01/23 11:56) increased headaches metoclopramide [From REGLAN] Adverse Reaction (Unknown, Verified 05/01/23 11:56) RASH trazodone Adverse Reaction (Unknown, Verified 05/01/23 11:56) increased headaches Medication List - Last Reconciled 05/01/23 by Cate Gomez PA-C bupropion HCl (Wellbutrin XL) 150 mg PO QAM 30 days cetirizine 10 mg PO DAILY PRN docusate sodium (Colace) 200 mg (2 x 100 mg) PO BEDTIME fluticasone propionate 110 mcg/actuation (Flovent HFA) 1 puff PO BID lorazepam 1 mg PO DAILY PRN 14 days meclizine 25 mg PO TID PRN methylcellulose (laxative) (Citrucel) 500 mg PO TID montelukast 10 mg PO DAILY omeprazole 40 mg PO DAILY ondansetron 4 mg PO ONCE PRN sumatriptan succinate mg PO Ventolin HFA 90 mcg/actuation (albuterol sulfate) 2 puffs inhalation Q6H PRN NS zolpidem 10 mg PO BEDTIME PRN 30 days HPI HPI Comments History of Present Illness Details A 28 y/o male f/u after EGD and colonoscopy for acid reflux and chronic constipation with abdominal He presents today he has noted last symptoms Appetite is good bowels have been better Omeprazole 40 mg-good response Following bowel regimen- has been No GI or general complaints [facility] Medical History Pure hypercholesterolemia GERD (gastroesophageal reflux disease) Anxiety Insomnia Migraine Allergic rhinitis Asthma Surgical History History of esophagogastroduodenoscopy (EGD) Hx of colonoscopy History of ear, nose, and throat (ENT) surgery History of appendectomy Family History Father Asthma Arthritis Diabetes Cirrhosis Mother Fibromyalgia HTN (hypertension) Migraines Heart disease Social History Household Members: Family Both parents involved: Yes Housing: House Alcohol intake: never Patient Tobacco Use Status: Never used Tobacco e-Cigarette/Vaping Use: Never Used Second Hand Smoke Exposure: Yes service: No Current occupational status: employed 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 Cognitive needs: No Hearing needs: No Vision needs: Yes (glasses) Review of Systems Const All systems reviewed & are unremarkable except as noted in HPI and below Card Denies chest pain and Denies dyspnea Resp Denies dyspnea GI Denies abdominal pain, Denies heartburn, Denies nausea and Denies vomiting Physical Exam Vital Signs: Last Vital Signs Pulse 81 05/01/23 11:55 BP 129/62 05/01/23 11:55 Pulse Ox 97 05/01/23 11:55 BMI result Body Mass Index 23.7 Const General: cooperative, healthy appearing, comfortable and no acute distress Orientation/consciousness: patient oriented x3 Limitations: no limitations Eyes Conjunctivae: conjunctivae normal Resp Effort & Inspection: normal respiratory effort and able to speak in complete sentences Skin General skin exam: no rashes or lesions noted Neuro General: patient oriented x3 Extrem General: Yes full ROM Psych Appearance: grossly normal and well kempt Mental Status: mental status grossly normal Speech and movement: Normal speech and movement present and Clear speech present Affect: normal affect Attitude: cooperative Thought process: Normal thought process present Thought content: Normal thought content present Insight: Good insight present (Psych) Judgement: Good judgement present (Psych) Results Reviewed Results Reviewed: Endoscopy Findings: esophagitis Colonoscopy Findings: internal hemorrhoids Plan: Await Pathology results Repeat Colonoscopy age 45 or earlier if clinically indicated High fiber diet leaflet avoid straining at stool, epsom salts and sitz bath, anusol supps or cream cont with PPI Above findings were reviewed with the patient and relevant handouts were provided if indicated. Name: Nitesh Benton Jr Age/Sex: 28/M Attending: Shy Johansen MD : 1995 Submitted by: Shy Johansen MD Copies to: Jovan Mac MD MR #: [id number] Status: [facility] Collected: 04/17/23 Location: [facility] Received: 04/17/23 Diagnosis A. Duodenum, biopsy: Duodenal mucosa within normal limits. B. Stomach, biopsy: Oxyntic mucosa with mild chronic inactive inflammation; no Helicobacter organisms seen. C. GE junction, biopsy: - Cardiofundic-type mucosa with moderate chronic inactive inflammation; no intestinal metaplasia seen. - Squamous mucosa within normal limits. D. Esophagus, distal, biopsy: Squamous epithelium within normal limits; no inflammation seen. E. Esophagus, proximal, biopsy: Squamous epithelium within normal limits; no inflammation seen. F. Terminal ileum, biopsy: Small intestinal mucosa within normal limits. G. Colon, random, biopsy: Colonic mucosa within normal limits. H. Rectum, snare, biopsy: Colonic mucosa with prominent lymphoid aggregates. See comment. COMMENT: Only rare S-100 immunoreactivity is seen in part H and no ganglion cells are seen on the H& E slide; however, very little submucosal tissue is present for evaluation. Clinical History Pre-Op Dx: GERD, abdominal distention (gaseous) Post-Op Dx: Esophagitis, hemorrhoids Microscopic Description A-H. Microscopic sections reviewed. Immunostain for H. pylori is non-reactive (B). S-100 immunostain highlights rare cells in part H. Material Received A. Duodenum bx's B. Stomach bx's C. GE junction bx's D. Distal esophagus bx's E. Proximal esophagus bx's Patient: Nitesh Benton Jr Age/Sex: 28/M MR#: [id number] Page 1 of 3 Assessment & Plan Assessment & Plan (1) GERD (gastroesophageal reflux disease): Comment: Reviewed procedure report, pathology and recommendation Continue omeprazole 40 mg daily half we will then reduce to omeprazole 20 mg Encourage avoidance of culprits Reassurance Code(s): K21.9 - Gastro-esophageal reflux disease without esophagitis Qualifiers: Esophagitis presence: without esophagitis Qualified Code(s): K21.9 - Gastro-esophageal reflux disease without esophagitis Plan: Omeprazole 40 mg daily (2) Chronic constipation: Comment: Maintain high-fiber diet consistent bowel regimen Code(s): K59.09 - Other constipation Patient Instructions: Reviewed procedure report, pathology and recommendations Omeprazole 40 mg daily He will call with progress, symptoms continue to improve cut back to omeprazole 20 mg Maintain high-fiber diet consistent bowel regimen encouraged to call with questions or concerns Coding Level of Care Code Est Pt Level 3 (01820) Diagnoses Gastroesophageal reflux disease without esophagitis K21.9 Esophagitis presence: without esophagitis Chronic constipation K59.09 Time Spent (min) 20
[2023-05-01 11:55] VITALS: BP 129/62; PULSE 81; O2SAT 97; BMI 23.7
== END 2023-05-01 13:05 | disposition home or self-care (01) ==
PROVIDERS: PCP Internal Medicine; Visit Provider Physician Assistant
DX: K21.9 Gastro-esophageal reflux disease without esophagitis (principal); K59.09 Other constipation
CPT/HCPCS: 99213

== ENCOUNTER → 2023-05-01 11:52 | Outpatient (BNVA) | payer OTHER, SELFPAY | PROVIDERS: PCP Internal Medicine; Visit Provider Physician Assistant | DX: K21.00 Gastro-esophageal reflux disease with esophagitis, without bleeding (principal); K64.8 Other hemorrhoids; K59.09 Other constipation; Z98.890 Other specified postprocedural states | CPT/HCPCS: 99212 ==

== ENCOUNTER 2023-08-19 14:12 | Outpatient (AMB) | payer OTHER, SELFPAY ==
[2023-08-19 14:13] VITALS: BP 120/78; PULSE 80; O2SAT 97; BMI 23.9
--- NOTE | 2023-08-19 14:13 | MHC.PC.OV ---
Vital Signs 08/19/23 14:13 Height 5 ft 11 in Weight 171 lb 6 oz BMI 23.9 BP 120/78 Blood Pressure Location Lt brachial Position Sitting Pulse 80 Pulse Source Pulse Oximeter Pulse Oximetry (%) 97 Oxygen Delivery Method Room Air Intake Visit Reasons: GERD, anxiety, insomnia, migraine Stereotype Finisher Required: No Accompanied by: Self / Same As Patient Allergies Penicillins (PENICILLINS) Allergy (Unknown, Verified 11/01/25 10:45) RASH amitriptyline Adverse Reaction (Unknown, Verified 11/01/25 10:45) increased headaches metoclopramide (From REGLAN) Adverse Reaction (Unknown, Verified 11/01/25 10:45) RASH trazodone Adverse Reaction (Unknown, Verified 11/01/25 10:45) increased headaches Medication List - Last Reconciled 08/19/23 by Jovan Mca MD bupropion HCl (Wellbutrin XL) 150 mg PO QAM 30 days cetirizine 10 mg PO DAILY PRN docusate sodium (Colace) 200 mg (2 x 100 mg) PO BEDTIME fluticasone propionate 110 mcg/actuation (Flovent HFA) 1 puff PO BID lorazepam 1 mg PO DAILY PRN 14 days meclizine 25 mg PO TID PRN methylcellulose (laxative) (Citrucel) 500 mg PO TID montelukast 10 mg PO DAILY omeprazole 40 mg PO DAILY ondansetron 4 mg PO ONCE PRN sumatriptan succinate mg PO Ventolin HFA 90 mcg/actuation (albuterol sulfate) 2 puffs inhalation Q6H PRN NS zolpidem 10 mg PO BEDTIME PRN 30 days Tobacco use date assessed: 08/19/23 Dental Screening Dental Screen Date: 08/19/23 Did you have a dental visit in the last 12 months?: Yes Did you have a dental problem in the last 6 months where you did not have access to dental care?: No Was dental information given to patient?: Patient has dentist [facility] Surgical History History of esophagogastroduodenoscopy (EGD) Hx of colonoscopy History of ear, nose, and throat (ENT) surgery History of appendectomy Family History Father Asthma Arthritis Diabetes Cirrhosis Mother Fibromyalgia HTN (hypertension) Migraines Heart disease Social History Household Members: Family Housing: House Alcohol intake: never Patient Tobacco Use Status: Never used Tobacco e-Cigarette/Vaping Use: Never Used Second Hand Smoke Exposure: Yes service: No Current occupational status: employed 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 1. Little interest or pleasure in doing things: not at all 2. Feeling down, depressed, or hopeless: not at all 3. Trouble falling or staying asleep, or sleeping too much: not at all 4. Feeling tired or having little energy: not at all 5. Poor appetite or overeating: not at all 6. Feeling bad about yourself - or that you are a failure or have let yourself or your family down: not at all 7. Trouble concentrating on things, such as reading the newspaper or watching television: not at all 8. Moving or speaking so slowly that other people could have noticed. Or the opposite - being so fidgety or restless that you have been moving around a lot more than usual: not at all 9. Thoughts that you would be better off or of hurting yourself in some way: not at all Total score: 0 Depression Screening Interpretation: Negative Depression Screening Done: Yes 12123 - PHQ-9 Billing: Yes Source: Developed by Drs. Javier Mueller, Bridgette Wang, Herman Lizarraga and colleagues, with an educational hiram from [employer]. Thrive Questionnaire Date Thrive assessed: 08/19/23 I am a: Patient What is your living situation today?: I have a steady place to live Within the past 12 months, did the food you bought not last and you didn't have the money to get more?: Never true Within the past 12 months, did you worry whether your food would run out before you got money to buy more?: Never true Do you have trouble paying for medicines?: No Do you have trouble getting transportation to medical appointments?: No Do you have trouble paying your heating and electricity bill?: No Do you have trouble taking care of your child, family member or friend?: No Do you have trouble with day-to-day activities such as bathing, preparing meals, shopping, managing finances, etc.?: No Are you currently unemployed and looking for a job?: No Are you interested in more education?: No Please select the resources that you would like help with: None Currently or been in a relationship where the following occur: no concerns reported THRIVE Score: 0 AUDIT C Alcohol Use Questionnaire (AUDIT-C) 1. How often do you have a drink containing alcohol?: Never 2. How many drinks containing alcohol do you have on a typical day when you are drinking?: 1 or 2 3. How often do you have six or more drinks on one occasion?: Never Total Score: 0 Score Reviewed/Action Taken: Yes TESS-7 AMB Questionnaire TESS-7 Date TESS - 7 assessed: 08/19/23 Feeling nervous, anxious, or on edge: 1 = Several days Not being able to stop or control worryin = Not at all Worrying too much about different things: 0 = Not at all Trouble relaxin = Not at all Being so restless that it is hard to sit still: 0 = Not at all Becoming easily annoyed or irritable: 0 = Not at all Feeling afraid as if something awful might happen: 0 = Not at all Total TESS-7 score (0-4 normal; 5-9 mild; 10-14 moderate; 15-21 severe): 1 Source: Developed by Drs. Javier Mueller, Bridgette Wang, Herman Lizarraga and colleagues, with an educational hiram from [employer]. TESS-7 Assessment Billing TESS-7 Assessment Tool: TESS-7 Assessment 97540 Physical exam (Primary Care) Vital Signs: Last Vital Signs Pulse 80 08/19/23 14:13 BP 120/78 08/19/23 14:13 Pulse Ox 97 08/19/23 14:13 Oxygen Delivery Method Room Air 08/19/23 14:13 BMI result Body Mass Index 23.9 Tobacco/Smoking Status: Tobacco use Status Tobacco use date assessed 08/19/23 08/19/23 14:19 Patient Tobacco Use Status Never used Tobacco 08/19/23 14:19 e-Cigarette/Vaping Use Never Used 08/19/23 14:19 PHQ-9: PHQ-9 Score PHQ-9: Total score 0 08/19/23 14:53 Depression Screening Interpretation: Negative Thrive Assessment: Date of Thrive Assessment Date Thrive assessed 08/19/23 08/19/23 14:19 Currently or been in a relationship where the following occur: no concerns reported Coding Level of Care Code Admin Sign Off/No Billing Diagnoses Migraine without status migrainosus, not intractable, unspecified migraine type G43.909 Migraine type: unspecified Status migrainosus presence: without status migrainosus Intractability: not intractable Pure hypercholesterolemia E78.00 Gastroesophageal reflux disease without esophagitis K21.9 Esophagitis presence: without esophagitis Mild asthma without complication, unspecified whether persistent J45.909 Asthma complication type: uncomplicated Asthma persistence: unspecified Asthma severity: mild Seasonal allergic rhinitis due to pollen J30.1 Allergic rhinitis seasonality: seasonal Allergic rhinitis trigger: pollen Tachycardia R00.0 Asymptomatic microscopic hematuria R31.21 Insomnia, unspecified type G47.00 Insomnia type: unspecified Anxiety F41.9 Additional Codes TESS-7 Assessment Billing - TESS-7 Assessment Tool: TESS-7 Assessment [id number] ([id number])
== END 2023-08-19 14:58 | disposition home or self-care (01) ==
LOC: HO.HMGH 14:12
PROVIDERS: PCP Internal Medicine; Visit Provider Internal Medicine
DX: G43.909 Migraine, unspecified, not intractable, without status migrainosus (principal); E78.00 Pure hypercholesterolemia, unspecified; K21.9 Gastro-esophageal reflux disease without esophagitis; J45.909 Unspecified asthma, uncomplicated; J30.1 Allergic rhinitis due to pollen; R00.0 Tachycardia, unspecified; R31.21 Asymptomatic microscopic hematuria; G47.00 Insomnia, unspecified; F41.9 Anxiety disorder, unspecified
CPT/HCPCS: 99499

== ENCOUNTER 2024-05-17 08:44 | Outpatient (REF) | payer OTHER, SELFPAY ==
[2024-05-17 09:07] LABS: MANUAL DIFF FLAG NO
[2024-05-17 09:30] LABS: Basophils Percent Auto 0.3 % (0-2); Eosinophils Absolute Auto 0.1 X10*3/uL (0.0-0.4); Eosinophils Percent Auto 0.8 % (0-4); Hematocrit 44.1 % (42.0-52.0); Hemoglobin 15.4 g/dl (14.0-18.0); Imm Gran Abs Auto 0.02 X10*3/uL (0.00-0.03); Imm Gran Pct Auto 0.3 % (0.0-0.4); Lymphocytes Absolute Auto 2.2 X10*3/uL (1.2-4.9); Lymphocytes Percent Auto 34.6 % (20-40); Mean Corpuscular HGB Conc 34.9 g/dl (31.0-36.0); Mean Corpuscular Hemoglobin 30.2 pg (27.0-33.0); Mean Corpuscular Volume 86.5 fL (80.0-98.0); Mean Platelet Volume 8.8 fL (9.4-12.4); Monocytes Absolute Auto 0.4 X10*3/uL (0.1-1.2); Monocytes Percent Auto 5.6 % (2-11); Neutrophils Absolute Auto 3.8 x10*3/uL (2.0-8.3); Neutrophils Percent Auto 58.4 % (45-73); Platelet Count 260 X10*3/uL (160-400); Red Cell Distribution Width 12.3 % (11.0-16.0); White Blood Count 6.5 X10*3/uL (4.8-10.8)
[2024-05-17 10:16] LABS: Appearance Urine Clear; Color Urine Yellow; Glucose Urine UA Negative (Negative); Leukocyte Esterase Urine Negative (Negative); Nitrite Urine Negative (Negative); PH 8.5 (5.0-9.0); Specific Gravity - Urine 1.015 (1.005-1.025); Urine Blood Negative (Negative); Urine Ketones Negative (Negative); Urine Protein Negative (Neg-Trace)
[2024-05-17 10:50] LABS: Anion Gap 13 (12-20)
[2024-05-17 10:55] LABS: Albumin Level 4.8 g/dL (3.5-5.0); Alkaline Phosphatase 92 U/L (39-117); Bilirubin Total 0.5 mg/dL (0.0-1.0); Blood Urea Nitrogen 8 mg/dL (9-16); Calcium 9.9 mg/dL (8.4-10.2); Carbon Dioxide 24 mmol/L (22-29); Chloride 107 mmol/L (96-108); Cholesterol 218 mg/dL (<200); Estimated Glomerular Filt Rate > 60; Glucose Fasting 86 mg/dL (60-99); HDL Cholesterol 51 mg/dL (>40); LDL Cholesterol Calculated 149 mg/dL (<100); Potassium 3.7 mmol/L (3.3-5.1); Sodium 140 mmol/L (135-145); Total Protein 7.8 g/dL (6.5-8.0); Triglycerides 90 mg/dL (<150)
[2024-05-17 11:05] LABS: TSH reflex Free T4 1.25 uIU/mL (0.32-4.0); Vitamin D 25-OH Total 18.4 ng/mL (>30)
[2024-05-17 12:42] LABS: Alanine Aminotransferase 45 U/L (0-40); Aspartate Amino Transferase 32 U/L (5-37)
== END 2024-05-17 08:45 | disposition home or self-care (01) ==
LOC: HO.LAB 08:44
PROVIDERS: PCP Internal Medicine; Visit Provider Internal Medicine
DX: Z00.00 Encounter for general adult medical examination without abnormal findings (principal); D64.9 Anemia, unspecified; R30.0 Dysuria; E55.9 Vitamin D deficiency, unspecified; E78.00 Pure hypercholesterolemia, unspecified
CPT/HCPCS: 36415; 80053; 80061; 81003; 82306; 84443; 85025

== ENCOUNTER 2024-05-25 16:01 | Outpatient (AMB) | payer OTHER, SELFPAY ==
--- NOTE | 2024-05-25 16:03 | A.OFFPC_ITS ---
Vital Signs 05/25/24 16:05 Height 5 ft 11 in Weight 185 lb 2 oz BMI 25.8 BP 120/62 Blood Pressure Location Lt brachial Position Sitting Pulse 103 H Pulse Source Pulse Oximeter Pulse Oximetry (%) 97 Oxygen Delivery Method Room Air Intake Visit Reasons: Annual PE Intake Note: Patient is here today for a physical. 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 Member Required: No Environmental Communications Specialist: Not Required per policy Accompanied by: Self / Same As Patient Allergies methylprednisolone [Methylprednisolone] Allergy (Unknown, Verified 05/25/24 16:48) UNKNOWN Penicillins [PENICILLINS] Allergy (Unknown, Verified 05/25/24 16:48) RASH amitriptyline Adverse Reaction (Unknown, Verified 05/25/24 16:48) increased headaches metoclopramide [From REGLAN] Adverse Reaction (Unknown, Verified 05/25/24 16:48) RASH trazodone Adverse Reaction (Unknown, Verified 05/25/24 16:48) increased headaches Medication List - Last Reconciled 05/25/24 by Jovan Mac MD bupropion HCl XL (Wellbutrin XL) 150 mg PO QAM 30 days cetirizine 10 mg PO DAILY PRN docusate sodium (Colace) 200 mg (2 x 100 mg) PO BEDTIME fluticasone propionate 110 mcg/actuation (Flovent HFA) 1 puff PO BID lorazepam 1 mg PO DAILY PRN 14 days meclizine 25 mg PO TID PRN methylcellulose (laxative) (Citrucel) 500 mg PO TID montelukast 10 mg PO DAILY omeprazole 40 mg PO DAILY ondansetron 4 mg PO BID-TID PRN sumatriptan succinate mg PO Ventolin HFA 90 mcg/actuation (albuterol sulfate) 2 puffs inhalation Q6H PRN NS zolpidem 10 mg PO BEDTIME PRN 30 days Tobacco use date assessed: 05/25/24 Dental Screening Dental Screen Date: 08/19/23 HPI Annual PE HPI Details Patient comes in today for his annual physical examination States that he has been experiencing recurrent pain over his right hip area for the past couple of weeks Notes that the pain feels worse when he moves his right leg or tries to extend it out He does not recall any recent injury or trauma to his right hip States that he has also been experiencing pain over his left tailbone area for about a month now Recalls that he first felt the pain there when he was working underneath a car and then tried to sit up when he was getting out from under the car, and he felt a sharp pain on his left tailbone area then and this has persisted until today He has also had a recurrent pain in his right thumb area at the base of the thumb for a couple of weeks now He is also requesting for a referral to see podiatry for a painful ingrown toenail on his left big toe - he used to see Dr. Rawls Patient denies any recent headaches or dizziness Denies any chest pains, no SOB No nausea/vomiting, no abdominal pain No change in bowel habits noted He denies any acute urinary symptoms He had his follow up labs done last week - to discuss his results Would also like to get his flu shot today [facility] Medical History Pure hypercholesterolemia GERD (gastroesophageal reflux disease) Anxiety Insomnia Migraine Allergic rhinitis Asthma Surgical History History of esophagogastroduodenoscopy (EGD) Hx of colonoscopy History of ear, nose, and throat (ENT) surgery History of appendectomy Family History Father Asthma Arthritis Diabetes Cirrhosis Mother Fibromyalgia HTN (hypertension) Migraines Heart disease Social History Household Members: Family Both parents involved: Yes Housing: House Alcohol intake: never Patient Tobacco Use Status: Never used Tobacco e-Cigarette/Vaping Use: Never Used Second Hand Smoke Exposure: Yes service: No Current occupational status: employed 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 1. Little interest or pleasure in doing things: not at all 2. Feeling down, depressed, or hopeless: not at all 3. Trouble falling or staying asleep, or sleeping too much: not at all 4. Feeling tired or having little energy: not at all 5. Poor appetite or overeating: not at all 6. Feeling bad about yourself - or that you are a failure or have let yourself or your family down: not at all 7. Trouble concentrating on things, such as reading the newspaper or watching television: not at all 8. Moving or speaking so slowly that other people could have noticed. Or the opposite - being so fidgety or restless that you have been moving around a lot more than usual: not at all 9. Thoughts that you would be better off or of hurting yourself in some way: not at all Total score: 0 Depression Screening Interpretation: Negative Depression Screening Done: Yes 48250 - PHQ-9 Billing: Yes Source: Developed by Drs. Javier Mueller, Bridgette Wang, Herman Lizarraga and colleagues, with an educational hiram from [employer]. Thrive Questionnaire Date Thrive assessed: 08/19/23 I am a: Patient What is your living situation today?: I have a steady place to live Within the past 12 months, did the food you bought not last and you didn't have the money to get more?: Never true Within the past 12 months, did you worry whether your food would run out before you got money to buy more?: Never true Do you have trouble paying for medicines?: No Do you have trouble getting transportation to medical appointments?: No Do you have trouble paying your heating and electricity bill?: No Do you have trouble taking care of your child, family member or friend?: No Do you have trouble with day-to-day activities such as bathing, preparing meals, shopping, managing finances, etc.?: No Are you currently unemployed and looking for a job?: No Are you interested in more education?: I choose not to answer this question Please select the resources that you would like help with: None Currently or been in a relationship where the following occur: No concerns reported THRIVE Score: 0 AUDIT C Alcohol Use Questionnaire (AUDIT-C) 1. How often do you have a drink containing alcohol?: Never 3. How often do you have six or more drinks on one occasion?: Never Total Score: 0 Score Reviewed/Action Taken: Yes TESS-7 AMB Questionnaire TESS-7 Date TESS - 7 assessed: 08/19/23 Feeling nervous, anxious, or on edge: 2 = More than half the days Not being able to stop or control worryin = More than half the days Worrying too much about different things: 1 = Several days Trouble relaxin = Not at all Being so restless that it is hard to sit still: 2 = More than half the days Becoming easily annoyed or irritable: 0 = Not at all Feeling afraid as if something awful might happen: 0 = Not at all Total TESS-7 score (0-4 normal; 5-9 mild; 10-14 moderate; 15-21 severe): 7 Source: Developed by Drs. Javier Mueller, Bridgette Wang, Herman Lizarraga and colleagues, with an educational hiram from [employer]. Review of Systems Const Denies chills, Denies fatigue, Denies fever(s), Denies headache(s), Denies malaise and Denies weakness Eyes Denies blurry vision, Denies change in vision, Denies irritation and Denies itchy eyes ENT Denies dysphagia, Denies dizziness, Denies otalgia, Denies headache(s), Denies nasal congestion, Denies neck pain, Denies odynophagia and Denies sore throat Card Denies chest pain, Denies rapid heart rate, Denies irregular heart rhythm, Reports palpitations (on and off palpitations) and Denies dyspnea Resp Denies chest congestion, Denies cough, Denies dyspnea and Denies wheezing GI Denies abdominal pain, Denies bloating, Denies constipation, Denies dysphagia, Denies heartburn, Denies diarrhea, Denies nausea, Denies odynophagia and Denies vomiting Denies hematuria, Denies difficulty urinating, Denies dysuria, Denies urinary frequency and Denies urinary urgency Musc Reports back pain (over the left tailbone area), Reports arthralgias (over the right hip area; at the base of the right thumb), Denies joint swelling, Denies muscle weakness and Denies neck pain Skin/Breast Denies change in pigmentation, Denies lesions, Denies rash and Denies unusual bruising Neuro Denies dizziness, Denies headache(s), Denies paresthesias and Denies weakness Endo Denies fatigue and Reports palpitations (on and off palpitations) Aller/Immun Denies itchy eyes and Denies wheezing Physical exam (Primary Care) Vital Signs: Last Vital Signs Pulse 103 H 05/25/24 16:05 BP 120/62 05/25/24 16:05 Pulse Ox 97 05/25/24 16:05 Oxygen Delivery Method Room Air 05/25/24 16:05 BMI result Body Mass Index 25.8 Tobacco/Smoking Status: Tobacco use Status Tobacco use date assessed 05/25/24 05/25/24 16:10 Patient Tobacco Use Status Never used Tobacco 05/25/24 16:10 e-Cigarette/Vaping Use Never Used 05/25/24 16:10 PHQ-9: PHQ-9 Score PHQ-9: Total score 0 05/25/24 16:49 Depression Screening Interpretation: Negative Thrive Assessment: Date of Thrive Assessment Date Thrive assessed 08/19/23 05/25/24 16:10 Currently or been in a relationship where the following occur: No concerns reported Const General: no acute distress, alert and awake Orientation/consciousness: patient oriented x3 HENMT Head: Yes normocephalic and Yes atraumatic Ears: external ears normal, TM's normal bilaterally and EAC's normal General nose exam: No nasal discharge present Face and sinus: Yes normal facial exam and Yes sinuses nontender Teeth and gingiva: dentition normal Throat: Yes posterior oropharynx normal and Yes tonsils normal (no TP congestion) Eyes Eyelids: Yes eyelids normal Conjunctivae: conjunctivae normal Pupils: Equal, round and reactive pupils present EOM: EOMs intact bilaterally Neck Neck: Yes no lymphadenopathy and Yes supple Thyroid: Thyroid normal Resp Auscultation: clear to auscultation bilaterally, no rales and no wheezes Cardio Rate: regular rate Rhythm: regular rhythm Heart sounds: no murmurs GI Palpation (GI): Soft to palpation, nontender and No hepatosplenomegaly present Auscultation: normal bowel sounds General: Yes no CVA tenderness Back/Spine/Pelvis Back: no CVA tenderness Thoracic/Lumbar Spine: thoracic and lumbar spine normal to inspection Skin Lesions: no lesions Rashes: no rashes Neuro General: patient oriented x3, moves all extremities, no focal motor deficits and CN's II-XI intact bilaterally Cranial nerves: Yes Equal, round and reactive pupils present Cognition (Neuro): normal cognition Gait exam (Neuro): Normal gait present Extrem General: Yes no clubbing, cyanosis or edema Right upper extremity: Extremity exam: right hand Details: tenderness Location: of the thumb Location: at the MCP joint Right lower extremity: hip/thigh Details: tenderness Location: of the hip Left lower extremity: foot (ingrown toenail on the medial side of the big toe) Office Procedures Flu Questionnaire Does the patient have a severe egg allergy?: No Does the patient have severe life threatening allergies?: No Does the patient have a fever or illness today?: No Has the patient ever had Guillain-[place] Syndrome?: No Has the patient ever had any past reaction to a flu shot?: No Immunizations Fluarix Triv 0595-1636 (PF) 45 mcg (15 mcg x 3)/0.5 mL IM syringe Performing Provider: Jovan Mac MD [facility] Administered by: Luly Ny RN on 05/25/24 16:18 Dose Route Admin Location Dispensed Lot Number Expiration Date NDC Bureau Director 0.5 mL IM Left Deltoid 0.5 mL [id number] 01/24/25 [id number] [employer] VIS Given Date VIS Provided VIS Publication Date 05/25/24 Single Vaccine 21 Eligibility Eligibility Date Funding Source Not [facility] Eligible 05/25/24 Private Results Reviewed Results Reviewed: Laboratory Tests 05/17/24 09:05 WBC 6.5 Hgb 15.4 Hct 44.1 Plt Count 260 Sodium 140 Potassium 3.7 Creatinine 0.88 Estimated GFR > 60 Fasting Glucose 86 Calcium 9.9 AST 32 ALT 45 H Triglycerides 90 Cholesterol 218 H LDL Cholesterol, Calc 149 H HDL Cholesterol 51 25-OH Vitamin D Total 18.4 L TSH 1.25 Ur Specific [place] 1.015 Urine Protein Negative Urine Glucose (UA) Negative Urine Blood Negative Urine Nitrite Negative Ur Leukocyte Esterase Negative Coding Level of Care Code Est Pt Prev Care 18-39y([id number]) Diagnoses Annual physical exam Z00.00 Palpitations R00.2 Pure hypercholesterolemia E78.00 Mild asthma without complication, unspecified whether persistent J45.909 Asthma complication type: uncomplicated Asthma persistence: unspecified Asthma severity: mild Migraine without status migrainosus, not intractable, unspecified migraine type G43.909 Migraine type: unspecified Status migrainosus presence: without status migrainosus Intractability: not intractable Seasonal allergic rhinitis due to pollen J30.1 Allergic rhinitis seasonality: seasonal Allergic rhinitis trigger: pollen Asymptomatic microscopic hematuria R31.21 Right hip pain M25.551 Pain of right thumb M79.644 Pain in the coccyx M53.3 Ingrown left big toenail L60.0 Gastroesophageal reflux disease without esophagitis K21.9 Esophagitis presence: without esophagitis Insomnia, unspecified type G47.00 Insomnia type: unspecified Anxiety F41.9 Assessment & Plan Assessment & Plan (1) Annual physical exam: Code(s): Z00.00 - Encounter for general adult medical examination without abnormal findings Category: Medical Plan: Results of his labs done last week reviewed and discussed with patient (2) Palpitations: Code(s): R00.2 - Palpitations Category: Medical Plan: Patient previously could not complete his 30 days cardiac event monitor as he developed some allergic reaction to the adhesive used for the monitoring device Feels that his symptoms are recurring more often again lately and is requesting for a referral to go back to see cardiology for further evaluation and recommendations - referral done (3) Pure hypercholesterolemia: Code(s): E78.00 - Pure hypercholesterolemia, unspecified Category: Medical Plan: Patient is advised that his total and LDL cholesterol levels have increased from previous on his recent labs Reinforced low cholesterol diet Will recheck his labs and fasting lipids in 6 months for follow up (4) Asthma: Code(s): J45.909 - Unspecified asthma, uncomplicated Category: Medical Qualifiers: Asthma complication type: uncomplicated Asthma persistence: unspecified Asthma severity: mild Qualified Code(s): J45.909 - Unspecified asthma, uncomplicated Plan: Stable - continue Flovent HFA 110 mcg 1 inhalation BID, Montelukast 10 mg QD and Albuterol HFA 2 inhalations every 6 hours as needed (5) Migraine: Code(s): G43.909 - Migraine, unspecified, not intractable, without status migrainosus Category: Medical Qualifiers: Migraine type: unspecified Status migrainosus presence: without status migrainosus Intractability: not intractable Qualified Code(s): G43.909 - Migraine, unspecified, not intractable, without status migrainosus Plan: Reinforced avoidance of any potential migraine triggers Continue Topiramate 50 mg Q HS for headache prophylaxis and Sumatriptan 25 mg PRN Follow up with neurology as scheduled (6) Allergic rhinitis: Code(s): J30.9 - Allergic rhinitis, unspecified Category: Medical Qualifiers: Allergic rhinitis seasonality: seasonal Allergic rhinitis trigger: pollen Qualified Code(s): J30.1 - Allergic rhinitis due to pollen Plan: Continue Fluticasone 50 mcg nasal spray QD, Montelukast 10 mg QD and Cetirizine 10 mg QD PRN (7) Asymptomatic microscopic hematuria: Code(s): R31.21 - Asymptomatic microscopic hematuria Category: Medical Plan: Patient is currently asymptomatic Will continue to monitor this regularly If this persists, will consider renal US for further evaluation (8) Right hip pain: Code(s): M25.551 - Pain in right hip Category: Medical Plan: Will send patient for right hip x-rays for further evaluation He may need to see orthopedics but will wait and see how his x-rays come out first before referring him (9) Pain of right thumb: Code(s): M79.644 - Pain in right finger(s) Category: Medical Plan: Advised that this is likely due to tenosynovitis Will send him for right hand/thumb x-rays for further evaluation (10) Pain in the coccyx: Code(s): M53.3 - Sacrococcygeal disorders, not elsewhere classified Category: Medical Plan: Will send him for x-rays of the coccyx for further evaluation (11) Ingrown left big toenail: Code(s): L60.0 - Ingrowing nail Category: Medical Plan: Will refer him to podiatry in [place] (Dr. Lambert) for further evaluation and management He used to see Dr. Rawls but Dr. Rawls a couple of months ago (12) GERD (gastroesophageal reflux disease): Comment: Reviewed procedure report, pathology and recommendation Continue omeprazole 40 mg daily half we will then reduce to omeprazole 20 mg Encourage avoidance of culprits Reassurance Code(s): K21.9 - Gastro-esophageal reflux disease without esophagitis Category: Medical Qualifiers: Esophagitis presence: without esophagitis Qualified Code(s): K21.9 - Gastro-esophageal reflux disease without esophagitis Plan: Dietary restrictions reinforced Continue Citrucel 500 mg TID Continue Omeprazole 20 mg QD Follow up with GI as scheduled (13) Insomnia: Code(s): G47.00 - Insomnia, unspecified Category: Medical Qualifiers: Insomnia type: unspecified Qualified Code(s): G47.00 - Insomnia, unspecified Plan: Sleep hygiene reinforced Continue Zolpidem 10 mg Q HS PRN (14) Anxiety: Code(s): F41.9 - Anxiety disorder, unspecified Category: Medical Plan: Continue Bupropion XL 150 mg Q AM and Lorazepam 1 mg QD PRN Plan As requested, flu vaccine given to patient today Follow up in 6 months Orders: Orders XR hip RT min 2V 05/25/24 M25.551 - Pain in right hip Comprehensive [place]. Panel Fast 6 Months E78.00 - Pure hypercholesterolemia, unspecified Lipid Panel 6 Months E78.00 - Pure hypercholesterolemia, unspecified XR hand RT min 3V 05/25/24 M79.644 - Pain in right finger(s) Influenza [id number] Immunization 05/25/24 Z23 - Encounter for immunization XR sacrum coccyx min 2V 05/25/24 M53.3 - Sacrococcygeal disorders, not elsewhere classified Referrals Cardiology Referral R00.0 - Tachycardia, unspecified, R00.2 - Palpitations Podiatry Referral L60.0 - Ingrowing nail
[2024-05-25 16:05] VITALS: BP 120/62; PULSE 103; O2SAT 97; BMI 25.8
== END 2024-05-25 17:03 | disposition home or self-care (01) ==
LOC: HO.HMCH 16:01
PROVIDERS: PCP Internal Medicine; Visit Provider Internal Medicine
DX: Z00.00 Encounter for general adult medical examination without abnormal findings (principal); R00.2 Palpitations; E78.00 Pure hypercholesterolemia, unspecified; J45.909 Unspecified asthma, uncomplicated; G43.909 Migraine, unspecified, not intractable, without status migrainosus; J30.1 Allergic rhinitis due to pollen; R31.21 Asymptomatic microscopic hematuria; M25.551 Pain in right hip; M79.644 Pain in right finger(s); M53.3 Sacrococcygeal disorders, not elsewhere classified; L60.0 Ingrowing nail; K21.9 Gastro-esophageal reflux disease without esophagitis

== ENCOUNTER → 2024-05-25 16:01 | Outpatient (BNVA) | payer OTHER, SELFPAY | PROVIDERS: PCP Internal Medicine; Visit Provider Internal Medicine | DX: Z00.01 Encounter for general adult medical examination with abnormal findings (principal); Z23 Encounter for immunization; R00.2 Palpitations; E78.00 Pure hypercholesterolemia, unspecified; J45.909 Unspecified asthma, uncomplicated; G43.909 Migraine, unspecified, not intractable, without status migrainosus; R31.21 Asymptomatic microscopic hematuria; M25.551 Pain in right hip; M79.644 Pain in right finger(s); M53.3 Sacrococcygeal disorders, not elsewhere classified; L60.0 Ingrowing nail; K21.9 Gastro-esophageal reflux disease without esophagitis; G47.00 Insomnia, unspecified; F41.9 Anxiety disorder, unspecified | CPT/HCPCS: 90471; 90656; 96127; 99395 ==

== ENCOUNTER 2024-06-10 16:14 | Outpatient (REF) | payer OTHER, SELFPAY | END 2024-06-10 16:15 | disposition home or self-care (01) | LOC: HO.XRAY 16:14 | PROVIDERS: PCP Internal Medicine; Visit Provider Internal Medicine | DX: M53.3 Sacrococcygeal disorders, not elsewhere classified (principal); M25.551 Pain in right hip; M79.644 Pain in right finger(s) | CPT/HCPCS: 72220; 73130; 73502 ==

== ENCOUNTER 2024-11-02 14:08 | Outpatient (AMB) | payer OTHER, SELFPAY ==
[2024-11-02 14:15] VITALS: BP 110/80; PULSE 95; BMI 27.1
--- NOTE | 2024-11-02 14:15 | MHC.OFFVIS ---
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 Allergies methylprednisolone [Methylprednisolone] Allergy (Unknown, Verified 05/25/24 16:48) UNKNOWN Penicillins [PENICILLINS] Allergy (Unknown, Verified 05/25/24 16:48) RASH amitriptyline Adverse Reaction (Unknown, Verified 05/25/24 16:48) increased headaches metoclopramide [From REGLAN] Adverse Reaction (Unknown, Verified 05/25/24 16:48) RASH trazodone Adverse Reaction (Unknown, Verified 05/25/24 16:48) increased headaches Medication List - Last Reconciled 11/02/24 by Meño Newman MD cetirizine 10 mg PO DAILY PRN docusate sodium (Colace) 200 mg PO BEDTIME PRN fluticasone propionate 110 mcg/actuation (Flovent HFA) 1 puff PO BID lorazepam 1 mg PO DAILY PRN 14 days methylcellulose (laxative) (Citrucel) 500 mg PO TID montelukast 10 mg PO DAILY omeprazole 40 mg PO DAILY ondansetron 4 mg PO BID-TID PRN sumatriptan succinate mg PO Ventolin HFA 90 mcg/actuation (albuterol sulfate) 2 puffs inhalation Q6H PRN NS zolpidem 10 mg PO BEDTIME PRN 30 days HPI Comments Details: Nitesh is here for consultation regarding chest pain and palpitations. He states that he has had both these symptoms going for many years. It seems that he has seen Cardiology at [facility] in the past but not recently. He describes essentially chest pain off and on going on for years. No specific provoking or relieving factors. Can happen while lying down, sitting, standing, walking extra. Sounds very atypical for cardiac. He believes he has some chest deformity and that may play some role. He is also describing heart racing symptoms at different times. Again it can happen any time. Previously tried Holter monitor through [facility] few years ago apparently that gave him a rash. He also gets dizziness at different times, especially when he gets up extra. His sister apparently carries a diagnosis of POTS. [facility] Medical History Pure hypercholesterolemia GERD (gastroesophageal reflux disease) Anxiety Insomnia Migraine Allergic rhinitis Asthma Surgical History History of esophagogastroduodenoscopy (EGD) Hx of colonoscopy History of ear, nose, and throat (ENT) surgery History of appendectomy Family History Father Asthma Arthritis Diabetes Cirrhosis Mother Fibromyalgia HTN (hypertension) Migraines Heart disease Social History Household Members: Family Both parents involved: Yes Housing: House Alcohol intake: never Patient Tobacco Use Status: Never used Tobacco e-Cigarette/Vaping Use: Never Used Second Hand Smoke Exposure: Yes service: No Current occupational status: employed 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 Cognitive needs: No Hearing needs: No Vision needs: Yes (glasses) Review of Systems Const Reports headache(s) and Denies weakness ENT Reports dizziness and Reports headache(s) Card Reports chest pain, Denies chest pain with activity, Denies syncope, Denies rapid heart rate, Denies pedal edema, Denies edema, Denies leg edema, Denies lightheadedness, Reports palpitations, Reports dyspnea on exertion and Denies orthopnea Resp Denies cough and Reports dyspnea on exertion GI Denies hematochezia and Denies change in stool character Musc Denies abnormal gait, Denies muscle cramps, Denies muscle weakness, Denies numbness, Denies radiating pain into limb and Denies tingling Neuro Denies abnormal gait, Reports dizziness, Denies syncope, Reports headache(s), Denies numbness, Denies tingling and Denies weakness Endo Reports palpitations Physical Exam Vital Signs: Last Vital Signs Pulse 95 11/02/24 14:15 BP 110/80 11/02/24 14:15 BMI result Body Mass Index 27.1 Const General: comfortable and no acute distress Orientation/consciousness: patient oriented x3 HEENT Other: Unremarkable Head: Yes normal to inspection Neck Neck: Yes normal visual inspection Chest Chest palpation & inspection: normal inspection of the chest Resp Auscultation: clear to auscultation bilaterally Cardio Palpation: normal PMI Heart sounds: S1 normal heart sound present, S2 normal heart sound present, no gallops, no murmurs and no rubs GI Palpation (GI): Soft to palpation Back/Spine/Pelvis Other: unremarkable Skin General skin exam: no rashes or lesions noted Neuro General: patient oriented x3 Extrem General: Yes normal to inspection Psych Mental Status: mental status grossly normal Office Procedures EKG Details: EKG with underlying sinus rhythm at 95/Min; rightward axis; no significant ST-T changes; [place]. [id number], Complete Assessment & Plan Assessment & Plan (1) Precordial chest pain: Code(s): R07.2 - Precordial pain Category: Medical (2) Palpitations: Code(s): R00.2 - Palpitations Category: Medical (3) Dizziness: Code(s): R42 - Dizziness and giddiness Category: Medical Plan Constellation of symptoms including nonexertional chest pains, palpitations, dizziness going on for years. Per [facility] notes, a prior echocardiogram few years back was unremarkable. Due to ongoing symptoms, we will repeat his echocardiogram. We will also get a Holter monitor. Hopefully he will be able tolerate without any rash. Follow-up after the above. Orders: Orders CA echo transthoracic complete Today Meño Newman MD R07.2 - Precordial pain ECG 7 day holter monitor Today Meño Newman MD R00.2 - Palpitations Medications: Changed From docusate sodium (Colace) 200 mg (2 x 100 mg) PO BEDTIME 60 caps 5RF To docusate sodium (Colace) 200 mg PO BEDTIME PRN YOSEF ShahC Coding Level of Care Code New Pt Level 3 (67048) Complex EM visit Add On G2211 Diagnoses Precordial chest pain R07.2 Palpitations R00.2 Dizziness R42 CPT Codes EKG - CPT: 18550-[id number], Complete ([id number])
--- OUTSIDE RECORDS SUMMARY | 2024-11-02 17:15 | XMS_ITS | Clinical Summary ---
Author Organization [employer] Address [address] [facility] [address] [place] [address] Care Team Providers Care Installation And Service Technician Name Role Phone Unavailable Primary Care Provider Unavailabl e Allergies Active Allergy Reactions Criticality Noted Date Comments Dog Epithelium Hives 06/28/2024 Dust Mite Extract 06/28/2024 Gramineae Pollens 06/28/2024 Methylprednisolone Hives 06/28/2024 received as a and experienced rash Metoclopramide Dizziness 06/28/2024 Trazodone Other 06/28/2024 Medications cetirizine (ZyrTEC) 10 MG tablet Take 10 mg by mouth Once per day. Active docusate sodium (Colace) 100 MG capsule Take 100 mg by mouth Once per day. 4 Active LORazepam (Ativan) 1 MG tablet Take 1 mg by mouth if needed each day. 4 Active montelukast (Singulair) 10 MG tablet Take 10 mg by mouth Once per day. Active omeprazole (PriLOSEC) [address] capsule Take 40 mg by mouth Once per day. 4 Active ondansetron ODT (Zofran-ODT) 4 MG disintegrating tablet Take 4 mg by mouth every 8 (eight) hours if needed. 4 Active polyethylene glycol, PEG, 3350 (Miralax) 17 g packet Take 17 g by mouth 1 (one) time. 3 Active SUMAtriptan (Imitrex) 100 MG tablet Take 100 mg by mouth 1 (one) time if needed for migraine. Active zolpidem (Ambien) 10 MG tablet Take 10 mg by mouth if needed at bedtime. Active acetaminophen (Tylenol) 500 MG tabletIndications:D ental caries into pulp Take 1 tablet (500 mg) by mouth every 6 (six) hours if needed for mild pain for up to 20 doses. 20 tablet 12/02/202 4 Active ibuprofen 600 MG tabletIndications:D ental caries into pulp Take 1 tablet (600 mg) by mouth every 6 (six) hours if needed for mild pain for up to 20 doses. 20 tablet 4 Active Active Problems Problem Noted Date Diagnosed Date Abdominal pain 06/28/2024 Asthma 06/28/2024 Attention deficit disorder 06/28/2024 Claustrophobia 06/28/2024 Migraine 06/28/2024 Psychophysiologic insomnia 06/28/2024 Snoring 06/28/2024 Weight loss 06/28/2024 Dental caries 06/28/2024 Social History Tobacco Use Types Packs/Day Years Used Date Smoking Tobacco: Never Smokeless Tobacco: Never Tobacco Cessation:Counseling Given: Not Answered Alcohol Use Standard Drinks/Week Comments Never 0 (1 standard drink = 0.6 oz pur e alcohol) Sex and Gender Information Value Date Recorded Sex Assigned at Male 06/28/2024 9:07 AM EST Legal Sex Male 9:04 AM EST Gender Identity Male 06/28/2024 9:07 AM EST Sexual Orientation Choose not to disclose 2023 9:07 AM EST Last Filed Vital Signs Vital Sign Reading Time Taken Comments Blood Pressure 126/76 07/20/2024 10:55 AM EST Pulse - - Temperature - - Respiratory Rate - - Oxygen Saturation - - Inhaled Oxygen Concentration - - Weight - - Height - - Body Mass Index - - Plan of Treatment Health Maintenance Due Date Last Done Comments Dental Oral Exam 1997 Dental Prophylaxis 1997 Dental X-Ray: Full Mouth 1997 Depression Screening 1997 HIV Screening 1997 SDOH Screening 1997 Alcohol/Substance Use Screening 2009 Family Planning (PISQ) 01/02/2012 HPV Vaccines (3 - Male 3-dose series) 07/18/2014 04/25/2014, 11/08/2013 Hepatitis C Screening 2015 Pneumococcal Vaccine: Pediatrics (0 to 5 Years) and At-Risk Patients (6 to 49) Years) (1 of 2 - PCV) 01/02/2016 01/21/2001 COVID-19 Vaccine ( - season) 2024 Dental X-Ray: Bitewings 06/29/2025 06/28/2024 Tobacco Screening 07/20/2025 07/20/2024 DTaP/Tdap/Td Vaccines (9 - Td or Tdap) 11/24/2028 11/24/2018, 08/23/2014, 11/03/2009, Additional history exists Zoster Vaccines (1 of 2) 2047 RSV Patients and Patients Aged 60 years or older (1 - 1-dose 75+ series) 01/02/2072 Hepatitis B Vaccines Completed 1997, 1997, 1997, Additional history exists HIB Vaccines Completed 07/05/1999, 07/29, 1997, Additional history exists IPV Vaccines Completed 06/05/2007, 12/27, 1997, Additional history exists Meningococcal Vaccine Completed 11/08/2013 , 11/08/2013, 11/03/2009, Additional history exists Influenza Vaccine Completed 05/25/2024, , 06/18/2019, Additional history exists Hepatitis A Vaccines Aged Out No long er eligible based on patient's age to complete this topic RSV under 20 months Aged Out No longe r eligible based on patient's age to complete this topic Rotavirus Vaccines Aged Out No longer eligible based on patient's age to complete this topic Procedures Procedure Name Priority Date/Time Associated Diagnosis Comments BITEWING - SINGLE RADIOGRAPHIC IMAGE Routine 06/28/2024 11:30 AM EST from Last 3 Months or Most Recently Relevant to Health Maintenance Insurance [facility] MEDICAID STAND ADULT
--- OUTSIDE RECORDS SUMMARY | 2024-11-02 17:15 | XMS_ITS | Clinical Summary ---
Author Organization [address] [facility] Address [address] [place] [address] Phone Care Team Providers Care Oil Gauger Name Role Phone Jovan Mac MD Primary Care Provider Allergies Active Allergy Reactions Criticality Noted Date Comments Solu-Medrol Mix-O-Vial 09/06/2024 Medications silver sulfADIAZINE (Silvadene) 1 % cream Apply topically 1 (one) time each day. 50 g 09/06/19 26 Active Encounters Date Type Department Care Team Description 09/21/2024 1:30 PM EST Office Visit Orthopedic Surgery [place] [phone] [phone] Mark Fairbanks DPM Cellulitis of great toe, left (Primary Dx) 09/06/2024 3:00 PM EST Office Visit [facility] [address] [phone] Mark Fairbanks DPM Cellulitis of great toe, left (Primary Dx); Ingrowing nail from Last 3 Months Social History Tobacco Use Types Packs/Day Years Used Date Smoking Tobacco: Never Assessed Sex and Gender Information Value Date Recorded Sex Assigned at Not on file Legal Sex Male 5:35 PM EST Gender Identity Not on file Sexual Orientation Not on file Last Filed Vital Signs Vital Sign Reading Time Taken Comments Blood Pressure - - Pulse - - Temperature - - Respiratory Rate - - Oxygen Saturation - - Inhaled Oxygen Concentration - - Weight 80.7 kg (178 lb) 09/21/2024 1:41 PM EST Height 182.9 cm (6' 0.01 ) 09/21/2024 1:41 PM ES T Body Mass Index 24.14 09/21/2024 1:41 PM EST Plan of Treatment Health Maintenance Due Date Last Done Comments Pneumococcal Vaccine: Pediatrics (0 to 5 Years) and At-Risk Patients (6 to 64 Years) (2 of 2 - PPSV23) 2003 01/21/2001 HPV Vaccines (3 - Male 3-dose series) 07/18/2014 04/25/2014, 11/08/2013 Depression Screening 06/29/2022 HIV Screening 06/29/2022 Hepatitis C Screening 06/29/2022 Social Influencers of Health Screening 06/29/2022 COVID-19 Vaccine ( season) 2024 DTaP,Tdap,and Td Vaccines (9 - Td or Tdap) 11/24/2028 11/24/2018, 08/23/2014, 11/03/2009, Additional history exists Hepatitis B Vaccines Completed 1997, 1997, 1997 HIB Vaccines Completed 07/05/1999, 07/29, 1997, Additional history exists MMR Vaccines Completed 01/21/2001, 02/03/1998 IPV Vaccines Completed 06/05/2007, 12/27, 1997, Additional history exists Varicella Vaccines Completed 06/25/2007, 02/03/1998 Meningococcal ACWY Vaccine Completed 11/08, 11/03/2009, 10/28/2009 Influenza Vaccine Completed 05/25/2024, , 06/18/2019, Additional history exists Hepatitis A Vaccines Aged Out No long er eligible based on patient's age to complete this topic Meningococcal B Vaccine Aged Out No l onger eligible based on patient's age to complete this topic RSV Immunization Patients Under 20 months Aged Out No longer eligible based on patient's age to complete this topic Insurance [place] Care Teams Oil Gauger Relationship Specialty Start Date End Date Jovan Mac MD [address] [place] [address] [address] [place], [place] PCP - General Internal Medicine 02/08/19
== END 2024-11-02 14:53 | disposition home or self-care (01) ==
LOC: HO.HCS 14:10
PROVIDERS: PCP Internal Medicine; Visit Provider Internal Medicine
DX: R07.2 Precordial pain (principal); R00.2 Palpitations; R42 Dizziness and giddiness
CPT/HCPCS: 93010; 99203; G2211

== ENCOUNTER → 2024-11-02 14:08 | Outpatient (BNVA) | payer OTHER, SELFPAY | PROVIDERS: PCP Internal Medicine; Visit Provider Internal Medicine | DX: R07.2 Precordial pain (principal); R00.2 Palpitations; R42 Dizziness and giddiness | CPT/HCPCS: 93005; 99202 ==

== ENCOUNTER 2024-11-11 08:20 | Outpatient (AMB) | payer OTHER, SELFPAY ==
--- NOTE | 2024-11-11 08:29 | MHC.OFFVIS ---
Vital Signs 11/11/24 08:31 Height 5 ft 11 in Weight 184 lb BMI 25.7 BP 108/57 L Blood Pressure Location Lt brachial Position Sitting Pulse 74 Pulse Oximetry (%) 97 Oxygen Delivery Method Room Air Intake Visit Reasons: chronic constipation/[facility]ate pt [facility] 05/19 Intake Note: Patient complex follow up for chronic constipation/Cate pt joe 05/01/23, last EGD/Colonoscopy was 04/17/[address] Johansen. Patient cc: acid reflex on and off, abdominal pain and RLQ pain on and off, and constipation. Denies any otehr GI issues for today. Sintering Plant Supervisor Required: No Accompanied by: Self / Same As Patient Allergies methylprednisolone [Methylprednisolone] Allergy (Unknown, Verified 11/11/24 08:29) UNKNOWN Penicillins [PENICILLINS] Allergy (Unknown, Verified 11/11/24 08:29) RASH amitriptyline Adverse Reaction (Unknown, Verified 11/11/24 08:29) increased headaches metoclopramide [From REGLAN] Adverse Reaction (Unknown, Verified 11/11/24 08:29) RASH trazodone Adverse Reaction (Unknown, Verified 11/11/24 08:29) increased headaches Medication List - Last Reconciled 11/11/24 by Claire Reed CNP cetirizine 10 mg PO DAILY PRN docusate sodium (Colace) 200 mg PO BEDTIME PRN fluticasone propionate 110 mcg/actuation (Flovent HFA) 1 puff PO BID lorazepam 1 mg PO DAILY PRN 14 days methylcellulose (laxative) (Citrucel) 500 mg PO TID montelukast 10 mg PO DAILY omeprazole 20 mg PO DAILY ondansetron 4 mg PO BID-TID PRN sumatriptan succinate mg PO Ventolin HFA 90 mcg/actuation (albuterol sulfate) 2 puffs inhalation Q6H PRN NS zolpidem 10 mg PO BEDTIME PRN 30 days HPI HPI chronic constipation/[facility] pt [facility] 05/19: Details: Patient is a 29-year-old male with PMH of HLD, anxiety, insomnia, migraines, asthma and GERD. Last visit with SAMEER Champion 05/01/2023 for chronic constipation + follow-up after double. Pt is here today for GERD. States he attempted to decrease the omeprazole dose to 20 mg as instructed during his last visit but was unsuccessful due to symptoms. Shares he is taking the omeprazole 40 mg approx 3x/week on days due to forgetfulness or no desire to take medications. He would like to trial 20 mg daily Associated symptoms:heart burn and regurgitation Aggravating factors: garlic, spicy foods, greasy food Alleviating attempts: avoid triggers Patient denies: systemic symptoms, vomiting, appetite changes, , unintentional wt loss, ab pain, dysphasia, bladder changes or melena. Common foods consumed: rice, beans, fried/baked/boil chicken, vegetables, soups, spaghetti some fruits 2-3 water bottles/day, sugar free Gatorade, 1-2 cans soda Reports intermittent RUQ ab pain onset X 2 months. He describes the pain as stabbing, currently rating a 2-3/10. States pain increases with mortin. Reports BM every 3-4 days, type 1-2 with straining. Aggravating factors: unable to identify Alleviating attempts: Motrin, Tylenol He denies recent medication/lifestyle change expresses concern for hernia to mid abdomen. reports area around umbilicus is painful when contracted. Reports chest pain and shortness of breath X 7 years. he is connected with CARDs with plan for echo and holter monitor. He is scheduled to follow up with PCP 11/22/24 Social hx: denies ETOH use denies recreational drug use non-smoker denies personal hx of CA Family hx: mother, breast CA in remission sister, thyriod CA in remssion Paternal Aunt ? liver diease, transplant list Dad, liver disease [facility] Medical History (Updated 11/12/24 @ 17:19 by Claire Reed CNP) Constipation Abdominal pain Pure hypercholesterolemia GERD (gastroesophageal reflux disease) Anxiety Insomnia Migraine Allergic rhinitis Asthma Surgical History History of esophagogastroduodenoscopy (EGD) Hx of colonoscopy History of ear, nose, and throat (ENT) surgery History of appendectomy Family History Father Asthma Arthritis Diabetes Cirrhosis Mother Fibromyalgia HTN (hypertension) Migraines Heart disease Social History Household Members: Family Both parents involved: Yes Housing: House Alcohol intake: never Patient Tobacco Use Status: Never used Tobacco e-Cigarette/Vaping Use: Never Used Second Hand Smoke Exposure: Yes service: No Current occupational status: employed Current occupation: [employer] Cognitive needs: No Hearing needs: No Vision needs: Yes (glasses) Review of Systems Const Reports as per HPI ENT Reports as per HPI Card Reports as per HPI Resp Reports as per HPI GI Reports as per HPI Reports as per HPI Physical Exam Vital Signs: Last Vital Signs Pulse 74 11/11/24 08:31 BP 108/57 L 11/11/24 08:31 Pulse Ox 97 11/11/24 08:31 Oxygen Delivery Method Room Air 11/11/24 08:31 BMI result Body Mass Index 25.7 Const General: healthy appearing, no acute distress and well developed Nutritional Appearance: well nourished Orientation/consciousness: patient oriented x3 HEENT Head: Yes normal to inspection, Yes normocephalic and Yes atraumatic Face and sinus: Yes normal facial exam Eyes General: appearance normal, both eyes and all related structures Neck Neck: Yes normal visual inspection Resp Effort & Inspection: normal respiratory effort, able to speak in complete sentences, no tracheal deviation and symmetric chest movement Auscultation: clear to auscultation bilaterally Cardio Jugular venous distension: no JVD Rate: regular rate Rhythm: regular rhythm Heart sounds: S1 normal heart sound present, S2 normal heart sound present, no gallops and no murmurs GI Inspection: Yes normal to inspection and No distended Palpation (GI): Soft to palpation, not firm, nontender, No hepatosplenomegaly present and no hernias Auscultation: normal bowel sounds Neuro General: patient oriented x3 Gait exam (Neuro): Normal gait present Psych Appearance: grossly normal Mental Status: mental status grossly normal Speech and movement: Normal speech and movement present Affect: normal affect Attitude: cooperative Thought process: Normal thought process present Thought content: Normal thought content present Insight: Good insight present (Psych) Judgement: Good judgement present (Psych) Results Reviewed Results Reviewed: Date of Service: 04/17/23 Indication: chronic constipation and GERD FLEXIBLE TRANSORAL UPPER GASTROINTESTINAL ENDOSCOPY AND COLONOSCOPY PROCEDURE NOTE UPPER ENDOSCOPY Procedure: The patient was placed in the left lateral decubitis position and pre-procedure medications were administered and a bite block was placed. The endoscope was inserted into the mouth and advanced under direct vision to the third part of duodenum. A careful inspection was made as the upper endoscope was withdrawn including a retroflexed examination of the proximal stomach; Findings and interventions are described below. Findings: Larynx:normal Esophagus: GE junction at 41 cm, diaphragm hiatus at 41 cm, mild esophagitis at GEJ, bx taken as well as from distal and proximal esophagus Stomach: Mild erythema. Biopsies were obtained. Grade 2 flap valve on retroflexed examination of the cardia. Duodenum: Normal bulb and descending duodenum, bx taken Intervention: Biopsies as noted above COLONOSCOPY Procedure: The patient was placed in the left lateral decubitis position and pre-procedure medications were administered. After a digital rectal examination of the ano-rectum, the video colonoscope was inserted into the rectum and advanced through the colon to the cecum/TI. The colonoscope was slowly withdrawn in a retrograde panoramic fashion and the colon mucosa was carefully examined including a retroflexed view of the rectum. Findings and interventions are described below. Procedure Difficulty:easy Findings: Terminal Ileum-normal, random bx taken Random colon bx taken Cecum:normal Ascending Colon: normal Transverse Colon -normal Descending Colon:normal Sigmoid Colon: normal Rectum: Retroflexion with small internal hemorrhoids, grade I, using cold snare rectal tissue sampled for ganglion cells to r/o Hirschsprungs Anorectum - normal Colon preparation: Bessie Bowel Preparation Scale Right colon; 3 Transverse colon: 3 Left colon; 3 Impression and Post Procedure Diagnosis: Endoscopy Findings: esophagitis Colonoscopy Findings: internal hemorrhoids Plan: Await Pathology results Repeat Colonoscopy age 45 or earlier if clinically indicated High fiber diet leaflet avoid straining at stool, epsom salts and sitz bath, anusol supps or cream cont with PPI Pathology 04/17/23 Diagnosis A. Duodenum, biopsy: Duodenal mucosa within normal limits. B. Stomach, biopsy: Oxyntic mucosa with mild chronic inactive inflammation; no Helicobacter organisms seen. C. GE junction, biopsy: - Cardiofundic-type mucosa with moderate chronic inactive inflammation; no intestinal metaplasia seen. - Squamous mucosa within normal limits. D. Esophagus, distal, biopsy: Squamous epithelium within normal limits; no inflammation seen. E. Esophagus, proximal, biopsy: Squamous epithelium within normal limits; no inflammation seen. F. Terminal ileum, biopsy: Small intestinal mucosa within normal limits. G. Colon, random, biopsy: Colonic mucosa within normal limits. H. Rectum, snare, biopsy: Colonic mucosa with prominent lymphoid aggregates. See comment. COMMENT: Only rare S-100 immunoreactivity is seen in part H and no ganglion cells are seen on the H& E slide; however, very little submucosal tissue is present for evaluation Assessment & Plan Assessment & Plan (1) Constipation: Code(s): K59.00 - Constipation, unspecified Category: Medical Qualifiers: Constipation type: unspecified constipation type Qualified Code(s): K59.00 - Constipation, unspecified Plan: Stool testing obtained to rule out inflammatory or celiac involvement. Reinforced lifestyle modifications to promote regularity: -higher fiber diet -adequate hydration with water -150 minutes of moderate intensity exercise per week (2) Abdominal pain: Code(s): R10.9 - Unspecified abdominal pain Category: Medical Qualifiers: Abdominal location: right upper quadrant Qualified Code(s): R10.11 - Right upper quadrant pain Plan: DDX reviewed: GERD VS PUD VS pancreatic involvement. We will obtain labs and abdominal ultrasound. GERD and constipation prevention as noted. (3) Acid reflux: Code(s): K21.9 - Gastro-esophageal reflux disease without esophagitis Category: Medical Qualifiers: Esophagitis presence: without esophagitis Qualified Code(s): K21.9 - Gastro-esophageal reflux disease without esophagitis Plan: Last EGD March 2023 with evidence of chronic inactive inflammation, otherwise unremarkable (see above). We will trial omeprazole 20 mg daily. Instructed to take approximately 30-60 minutes before first meal of the day. Education on GERD prevention-Advised against heavy meals. Encouraged small frequent meals VS large meals, remaining upright after meals x 2-3 hours, avoid late night eating/spicy foods/caffeine/alcohol/known triggers and tight fitting clothes Plan Follow-up after results are sooner as needed Time: I spent a total of 60 minutes on the date of encounter which includes: Preparing to see the patient (reviewed previous documentation, test results and medical history) Performing a medically appropriate exam and/or evaluation Ordering medications, tests, and procedures Documenting clinical information in the health record Orders: Orders Comprehensive Met. Panel 11/11/24 R10.9 - Unspecified abdominal pain IRON PROFILE 11/11/24 K59.00 - Constipation, unspecified Transglutaminase IgA 11/11/24 K59.00 - Constipation, unspecified C Reactive Protein 11/11/24 K59.00 - Constipation, unspecified Complete Blood Count Auto Diff 11/11/24 K59.00 - Constipation, unspecified Calprotectin, Fecal 11/11/24 K59.00 - Constipation, unspecified Lipase 11/11/24 R10.9 - Unspecified abdominal pain US abdomen complete 11/11/24 R10.9 - Unspecified abdominal pain H pylori Ag Stool Today R10.11 - Right upper quadrant pain Medications: New docusate sodium (Colace) 200 mg (2 x 100 mg) PO BEDTIME PRN 90 caps 1RF constipation omeprazole 20 mg PO DAILY 90 caps 1RF Refilled methylcellulose (laxative) (Citrucel) 500 mg PO TID 90 tabs 5RF Discontinued omeprazole Discontinued Reason: Doctor's Order 40 mg PO DAILY 90 caps 1RF Coding Level of Care Code Established Pt Est Pt Level 4 (90949) Patient Type Established Diagnoses Constipation, unspecified constipation type K59.00 Constipation type: unspecified constipation type Right upper quadrant abdominal pain R10.11 Abdominal location: right upper quadrant Gastroesophageal reflux disease without esophagitis K21.9 Esophagitis presence: without esophagitis
[2024-11-11 08:31] VITALS: BP 108/57; PULSE 74; O2SAT 97; BMI 25.7
--- OUTSIDE RECORDS SUMMARY | 2024-11-11 08:37 | XMS_ITS | Clinical Summary ---
Author Organization [employer] Address [address] [facility] 7t [place] [address] Care Team Providers Care Soaking Room Operator Name Role Phone Unavailable Primary Care Provider [...] Most Recently Relevant to Health Maintenance Insurance [facility] MEDICAID STAND ADULT
--- OUTSIDE RECORDS SUMMARY | 2024-11-11 08:37 | XMS_ITS | Clinical Summary ---
Author Organization [address] [facility] Address [address] [place] [address] Phone Care Team Providers Care Gift Shop Manager Name Role Phone Jovan Mac MD Primary Care Provider Allergies Active Allergy Reactions Criticality Noted Date Comments Solu-Medrol Mix-O-Vial 09/06/2024 Medications silver sulfADIAZINE (Silvadene) 1 % cream Apply topically 1 (one) time each day. 50 g 09/06/19 26 Active Encounters Date Type Department Care Team Description 09/21/2024 1:30 PM EST Office Visit Orthopedic Surgery [place] [phone] [phone] Mark Fairbanks DPM Cellulitis of great toe, left (Primary Dx) 09/06/2024 3:00 PM EST Office Visit [facility] [address] [phone] Mark Fairbanks DPM Cellulitis of great toe, [...] to complete this topic Insurance MEDICAID - [place] Care Teams Gift Shop Manager Relationship Specialty Start Date End Date Jovan Mac MD [address] [place] [address] [address] [place], [place] PCP - General Internal Medicine 02/08/19
== END 2024-11-11 10:24 | disposition home or self-care (01) ==
LOC: HO.HGI 08:20
PROVIDERS: PCP Internal Medicine; Visit Provider Nurse Practitioner Family
DX: K59.00 Constipation, unspecified (principal); R10.11 Right upper quadrant pain; K21.9 Gastro-esophageal reflux disease without esophagitis
CPT/HCPCS: 99215; 99417

== ENCOUNTER → 2024-11-11 08:20 | Outpatient (BNVA) | payer OTHER, SELFPAY | PROVIDERS: PCP Internal Medicine; Visit Provider Nurse Practitioner Family | DX: K59.00 Constipation, unspecified (principal); K21.9 Gastro-esophageal reflux disease without esophagitis; R10.11 Right upper quadrant pain | CPT/HCPCS: 99212 ==

== ENCOUNTER 2024-11-22 15:58 | Outpatient (AMB) | payer OTHER, SELFPAY ==
[2024-11-22 16:16] VITALS: BP 110/76; PULSE 94; O2SAT 97; BMI 26.2
--- NOTE | 2024-11-22 16:16 | A.OFFPC_ITS ---
Vital Signs 11/22/24 16:16 Height 5 ft 11 in Weight 188 lb 2 oz BMI 26.2 BP 110/76 Blood Pressure Location Lt brachial Position Sitting Pulse 94 Pulse Source Pulse Oximeter Pulse Oximetry (%) 97 Oxygen Delivery Method Room Air Intake Visit Reasons: 6 Months Exercise Science Instructor Required: No Accompanied by: Self / Same As Patient Allergies methylprednisolone [Methylprednisolone] Allergy (Unknown, Verified 11/22/24 16:35) UNKNOWN Penicillins [PENICILLINS] Allergy (Unknown, Verified 11/22/24 16:35) RASH amitriptyline Adverse Reaction (Unknown, Verified 11/22/24 16:35) increased headaches metoclopramide [From REGLAN] Adverse Reaction (Unknown, Verified 11/22/24 16:35) RASH trazodone Adverse Reaction (Unknown, Verified 11/22/24 16:35) increased headaches Medication List - Last Reconciled 11/22/24 by Jovan Mac MD cetirizine 10 mg PO DAILY PRN docusate sodium (Colace) 200 mg (2 x 100 mg) PO BEDTIME PRN fluticasone propionate 110 mcg/actuation (Flovent HFA) 1 puff PO BID lorazepam 1 mg PO DAILY PRN 14 days methylcellulose (laxative) (Citrucel) 500 mg PO TID montelukast 10 mg PO DAILY omeprazole 20 mg PO DAILY ondansetron 4 mg PO BID-TID PRN sumatriptan succinate mg PO Ventolin HFA 90 mcg/actuation (albuterol sulfate) 2 puffs inhalation Q6H PRN NS zolpidem 10 mg PO BEDTIME PRN 30 days Tobacco use date assessed: 11/22/24 Dental Screening Dental Screen Date: 11/22/24 Did you have a dental visit in the last 12 months?: Yes Did you have a dental problem in the last 6 months where you did not have access to dental care?: No Was dental information given to patient?: Patient has dentist HPI 6 Months HPI Details Patient comes in today for his follow up visit States that he feels okay He denies any headaches or dizziness Denies any chest pains, no SOB No nausea/vomiting, no abdominal pain No change in bowel habits noted He was not able to get his previously ordered labs done prior to his appointment today [facility] Medical History Constipation Abdominal pain Pure hypercholesterolemia GERD (gastroesophageal reflux disease) Anxiety Insomnia Migraine Allergic rhinitis Asthma Surgical History History of esophagogastroduodenoscopy (EGD) Hx of colonoscopy History of ear, nose, and throat (ENT) surgery History of appendectomy Family History Father Asthma Arthritis Diabetes Cirrhosis Mother Fibromyalgia HTN (hypertension) Migraines Heart disease Social History Household Members: Family Housing: House Alcohol intake: never Patient Tobacco Use Status: Never used Tobacco e-Cigarette/Vaping Use: Never Used Second Hand Smoke Exposure: Yes service: No Current occupational status: employed 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 1. Little interest or pleasure in doing things: not at all 2. Feeling down, depressed, or hopeless: not at all 3. Trouble falling or staying asleep, or sleeping too much: several days 4. Feeling tired or having little energy: several days 5. Poor appetite or overeating: not at all 6. Feeling bad about yourself - or that you are a failure or have let yourself or your family down: not at all 7. Trouble concentrating on things, such as reading the newspaper or watching television: not at all 8. Moving or speaking so slowly that other people could have noticed. Or the opposite - being so fidgety or restless that you have been moving around a lot more than usual: not at all 9. Thoughts that you would be better off or of hurting yourself in some way: not at all Total score: 2 Depression Screening Interpretation: Negative Depression Screening Done: Yes 07991 - PHQ-9 Billing: Yes Source: Developed by Drs. Javier Mueller, Bridgette Wang, Herman Lizarraga and colleagues, with an educational hiram from [employer]. Thrive Questionnaire Date Thrive assessed: 11/22/24 I am a: Patient What is your living situation today?: I have a steady place to live Within the past 12 months, did the food you bought not last and you didn't have the money to get more?: Never true Within the past 12 months, did you worry whether your food would run out before you got money to buy more?: Never true Do you have trouble paying for medicines?: I choose not to answer this question Do you have trouble getting transportation to medical appointments?: No Do you have trouble paying your heating and electricity bill?: No Do you have trouble taking care of your child, family member or friend?: No Do you have trouble with day-to-day activities such as bathing, preparing meals, shopping, managing finances, etc.?: No Are you currently unemployed and looking for a job?: No Are you interested in more education?: No Please select the resources that you would like help with: None Currently or been in a relationship where the following occur: I choose not to answer THRIVE Score: 0 AUDIT C Alcohol Use Questionnaire (AUDIT-C) 1. How often do you have a drink containing alcohol?: Never 3. How often do you have six or more drinks on one occasion?: Never Total Score: 0 Score Reviewed/Action Taken: Yes TESS-7 AMB Questionnaire TESS-7 Date TESS - 7 assessed: 11/22/24 Feeling nervous, anxious, or on edge: 0 = Not at all Not being able to stop or control worryin = Not at all Worrying too much about different things: 0 = Not at all Trouble relaxin = Not at all Being so restless that it is hard to sit still: 0 = Not at all Becoming easily annoyed or irritable: 0 = Not at all Feeling afraid as if something awful might happen: 0 = Not at all Total TESS-7 score (0-4 normal; 5-9 mild; 10-14 moderate; 15-21 severe): 0 Source: Developed by Drs. Javier Mueller, Bridgette Wang, Herman Lizarraga and colleagues, with an educational hiram from [employer]. Review of Systems Const Denies chills, Denies fatigue, Denies fever(s) and Denies headache(s) ENT Denies dysphagia, Denies dizziness, Denies otalgia, Denies headache(s), Denies neck pain, Denies odynophagia and Denies sore throat Card Denies rapid heart rate, Denies irregular heart rhythm, Denies palpitations and Denies dyspnea Resp Denies chest congestion, Denies cough and Denies dyspnea GI Denies abdominal pain, Denies constipation, Denies dysphagia, Denies heartburn, Denies diarrhea, Denies nausea, Denies odynophagia and Denies vomiting Denies difficulty urinating, Denies dysuria and Denies urinary frequency Musc Reports back pain (over his lower back), Denies arthralgias and Denies neck pain Skin/Breast Denies rash Neuro Denies dizziness, Denies headache(s) and Denies paresthesias Endo Denies fatigue and Denies palpitations Physical exam (Primary Care) Vital Signs: Last Vital Signs Pulse 94 11/22/24 16:16 BP 110/76 11/22/24 16:16 Pulse Ox 97 11/22/24 16:16 Oxygen Delivery Method Room Air 11/22/24 16:16 BMI result Body Mass Index 26.2 Tobacco/Smoking Status: Tobacco use Status Tobacco use date assessed 11/22/24 11/22/24 16:21 Patient Tobacco Use Status Never used Tobacco 11/22/24 16:21 e-Cigarette/Vaping Use Never Used 11/22/24 16:21 PHQ-9: PHQ-9 Score PHQ-9: Total score 2 11/22/24 16:42 Depression Screening Interpretation: Negative Thrive Assessment: Date of Thrive Assessment Date Thrive assessed 11/22/24 11/22/24 16:21 Currently or been in a relationship where the following occur: I choose not to answer Const General: no acute distress and alert HENMT Ears: TM's normal bilaterally and EAC's normal Throat: Yes posterior oropharynx normal and Yes tonsils normal (no TP congestion) Neck Neck: Yes supple and No lymphadenopathy Thyroid: Thyroid normal Resp Auscultation: clear to auscultation bilaterally, no rales and no wheezes Cardio Rate: regular rate Rhythm: regular rhythm Heart sounds: no murmurs GI Palpation (GI): Soft to palpation and nontender Auscultation: normal bowel sounds General: Yes no CVA tenderness Back/Spine/Pelvis Back: no CVA tenderness Thoracic/Lumbar Spine: No lumbar spinal tenderness Sacroiliac joints: bilaterally tender to palpation Skin Rashes: no rashes Extrem General: Yes no clubbing, cyanosis or edema Coding Level of Care Code Est Pt Level 4 (09440) Diagnoses 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 M46.1 Primary osteoarthritis of right hip M16.11 Osteoarthritis type: primary 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 Osteoarthritis type: primary Palpitations R00.2 Pure hypercholesterolemia E78.00 Mild asthma without complication, unspecified whether persistent J45.909 Asthma complication type: uncomplicated Asthma persistence: unspecified Asthma severity: mild Migraine without status migrainosus, not intractable, unspecified migraine type G43.909 Migraine type: unspecified Status migrainosus presence: without status migrainosus Intractability: not intractable Seasonal allergic rhinitis due to pollen J30.1 Allergic rhinitis seasonality: seasonal Allergic rhinitis trigger: pollen Asymptomatic microscopic hematuria R31.21 Gastroesophageal reflux disease without esophagitis K21.9 Esophagitis presence: without esophagitis Insomnia, unspecified type G47.00 Insomnia type: unspecified Anxiety F41.9 Additional Codes PHQ-9 - 66686 - PHQ-9 Billing: Yes ([id number]) Assessment & Plan Assessment & Plan (1) 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: Code(s): M46.1 - Sacroiliitis, not elsewhere classified Category: Medical Plan: Lower back x-rays done back in May 2024 revealed (+) minimal degenerative changes in the bilateral sacroiliac joints and facet arthritis in the partially imaged lower spine Will refer patient to physical therapy for further evaluation and management of his recurrent low back pain (2) Osteoarthritis of right hip: Code(s): M16.11 - Unilateral primary osteoarthritis, right hip Category: Medical Qualifiers: Osteoarthritis type: primary Qualified Code(s): M16.11 - Unilateral primary osteoarthritis, right hip Plan: Right hip x-rays done back in May 2024 revealed (+) minimal narrowing along the superolateral aspect of the RIGHT hip joint Patient states that his right hip has not been bothering him too much lately He is advised that physical therapy is also an option if his hip starts to bother him a lot (3) Osteoarthritis of hand, right: Code(s): M19.041 - Primary osteoarthritis, right hand Category: Medical Qualifiers: Osteoarthritis type: primary Qualified Code(s): M19.041 - Primary osteoarthritis, right hand Plan: X-rays of the right hand done in May 2024 also revealed (+) mild degenerative changes at the first carpometacarpal joint Can also refer him to PT/OT if he starts experiencing increased right hand symptoms (4) Palpitations: Code(s): R00.2 - Palpitations Category: Medical Plan: Patient previously could not complete his 30 days cardiac event monitor as he developed some allergic reaction to the adhesive used for the monitoring device Patient states that his symptoms are recurring more often again and requested to see cardiology again for further evaluation and recommendations He was eventually seen by cardiology last week and is again sent for further testing with echocardiogram and a 7 day Holter monitor and will be seen again after his tests are done (5) Pure hypercholesterolemia: Code(s): E78.00 - Pure hypercholesterolemia, unspecified Category: Medical Plan: Patient is advised that his total and LDL cholesterol levels have increased from previous on his labs back in April 2024 Reinforced low cholesterol diet Will recheck his labs and fasting lipids in 6 months for follow up (6) Asthma: Code(s): J45.909 - Unspecified asthma, uncomplicated Category: Medical Qualifiers: Asthma complication type: uncomplicated Asthma persistence: unspecified Asthma severity: mild Qualified Code(s): J45.909 - Unspecified asthma, uncomplicated Plan: Controlled - continue Flovent HFA 110 mcg 1 inhalation BID, Montelukast 10 mg QD and Albuterol HFA 2 inhalations every 6 hours as needed (7) Migraine: Code(s): G43.909 - Migraine, unspecified, not intractable, without status migrainosus Category: Medical Qualifiers: Migraine type: unspecified Status migrainosus presence: without status migrainosus Intractability: not intractable Qualified Code(s): G43.909 - Migraine, unspecified, not intractable, without status migrainosus Plan: Reinforced avoidance of any potential migraine triggers Continue Topiramate 50 mg Q HS for headache prophylaxis and Sumatriptan 25 mg PRN Follow up with neurology as scheduled (8) Allergic rhinitis: Code(s): J30.9 - Allergic rhinitis, unspecified Category: Medical Qualifiers: Allergic rhinitis seasonality: seasonal Allergic rhinitis trigger: pollen Qualified Code(s): J30.1 - Allergic rhinitis due to pollen Plan: Continue Fluticasone 50 mcg nasal spray QD, Montelukast 10 mg QD and Cetirizine 10 mg QD PRN (9) Asymptomatic microscopic hematuria: Code(s): R31.21 - Asymptomatic microscopic hematuria Category: Medical Plan: Patient is currently asymptomatic Will continue to monitor this regularly If this persists, will consider renal US for further evaluation (10) GERD (gastroesophageal reflux disease): Comment: Reviewed procedure report, pathology and recommendation Continue omeprazole 40 mg daily half we will then reduce to omeprazole 20 mg Encourage avoidance of culprits Reassurance Code(s): K21.9 - Gastro-esophageal reflux disease without esophagitis Category: Medical Qualifiers: Esophagitis presence: without esophagitis Qualified Code(s): K21.9 - Gastro-esophageal reflux disease without esophagitis Plan: Dietary restrictions reinforced Continue Citrucel 500 mg TID Continue Omeprazole 20 mg QD Follow up with GI as scheduled (11) Insomnia: Code(s): G47.00 - Insomnia, unspecified Category: Medical Qualifiers: Insomnia type: unspecified Qualified Code(s): G47.00 - Insomnia, unspecified Plan: Sleep hygiene reinforced Continue Zolpidem 10 mg Q HS PRN (12) Anxiety: Code(s): F41.9 - Anxiety disorder, unspecified Category: Medical Plan: Continue Bupropion XL 150 mg Q AM and Lorazepam 1 mg QD PRN Plan To return in 6 months for his next annual physical examination Orders: Orders PT Evaluation and Treatment 11/22/24 M46.1 - Sacroiliitis, not elsewhere classified Complete Blood Count Auto Diff 6 Months D64.9 - Anemia, unspecified, Z00.00 - Encounter for general adult medical examination without abnormal findings Lipid Panel 6 Months E78.00 - Pure hypercholesterolemia, unspecified, Z00.00 - Encounter for general adult medical examination without abnormal findings UA CC w/rflx Micro + Cult 6 Months R30.0 - Dysuria, Z00.00 - Encounter for general adult medical examination without abnormal findings Comprehensive Gary. Panel Fast 6 Months E78.00 - Pure hypercholesterolemia, unspecified, Z00.00 - Encounter for general adult medical examination without abnormal findings TSH reflex Free T4 6 Months E78.00 - Pure hypercholesterolemia, unspecified, Z00.00 - Encounter for general adult medical examination without abnormal findings Vitamin D 25-OH Total 6 Months E55.9 - Vitamin D deficiency, unspecified, Z00.00 - Encounter for general adult medical examination without abnormal findings
--- OUTSIDE RECORDS SUMMARY | 2024-11-22 18:42 | XMS_ITS | Clinical Summary ---
Author Organization [address] [facility] Address [address] [place] [address] Phone Care Team Providers Care Machine Learning Intern Name Role Phone Jovan Mac MD Primary Care Provider Allergies Active Allergy Reactions Criticality Noted Date Comments Solu-Medrol Mix-O-Vial 09/06/2024 Medications silver sulfADIAZINE (Silvadene) 1 % cream Apply topically 1 (one) time each day. 50 g 09/06/19 26 Active Encounters Date Type Department Care Team Description 09/21/2024 1:30 PM EST Office Visit Orthopedic Surgery [place] [id number] [phone] Mark Fairbanks DPM Cellulitis of great toe, left (Primary Dx) 09/06/2024 3:00 PM EST Office Visit [facility] [address] [phone] Mark Fairbanks DPM Cellulitis of great toe, [...] to complete this topic [place] Care Teams Machine Learning Intern Relationship Specialty Start Date End Date Jovan Mac MD [address] [place] [address] [address] [place], [place] PCP - General Internal Medicine 02/08/19
--- OUTSIDE RECORDS SUMMARY | 2024-11-22 18:42 | XMS_ITS | Clinical Summary ---
Author Organization [employer] Address [address] [facility] 7t [place] [address] Care Team Providers Care Japanese Professor Name Role Phone Unavailable Primary Care Provider [...] Most Recently Relevant to Health Maintenance Insurance [facility]ENTAL-[facility] MEDICAID STAND ADULT
== END 2024-11-22 16:49 | disposition home or self-care (01) ==
LOC: HO.HMCH 15:59
PROVIDERS: PCP Internal Medicine; Visit Provider Internal Medicine
DX: R00.2 Palpitations (principal); M19.041 Primary osteoarthritis, right hand; M16.11 Unilateral primary osteoarthritis, right hip; E78.00 Pure hypercholesterolemia, unspecified; J45.909 Unspecified asthma, uncomplicated; G43.909 Migraine, unspecified, not intractable, without status migrainosus; J30.1 Allergic rhinitis due to pollen; R31.21 Asymptomatic microscopic hematuria; K21.9 Gastro-esophageal reflux disease without esophagitis; G47.00 Insomnia, unspecified; F41.9 Anxiety disorder, unspecified

== ENCOUNTER → 2024-11-22 15:58 | Outpatient (BNVA) | payer OTHER, SELFPAY | PROVIDERS: PCP Internal Medicine; Visit Provider Internal Medicine | DX: M46.1 Sacroiliitis, not elsewhere classified (principal); M16.11 Unilateral primary osteoarthritis, right hip; M19.041 Primary osteoarthritis, right hand; R00.2 Palpitations; E78.00 Pure hypercholesterolemia, unspecified; J45.909 Unspecified asthma, uncomplicated; G43.909 Migraine, unspecified, not intractable, without status migrainosus; J30.1 Allergic rhinitis due to pollen; R31.21 Asymptomatic microscopic hematuria; K21.9 Gastro-esophageal reflux disease without esophagitis; G47.00 Insomnia, unspecified; F41.9 Anxiety disorder, unspecified; Z79.899 Other long term (current) drug therapy | CPT/HCPCS: 96127; 99212 ==

== ENCOUNTER → 2024-11-29 08:16 | Outpatient (REF) | payer OTHER, SELFPAY ==
--- NOTE | 2024-11-29 08:21 | CA_ITS ---
Transthoracic Echocardiogram Patient (Last, First, Middle): Nitesh Benton, Gender: Male Date of : 1995 Age: 29 Procedure Date: 11/29/2024 Procedure Type: Transthoracic Echocardiogram Location: OP Height: 180.34 cm Weight: 85.28 kg BSA: 2.05 m2 Heart Rate: bpm BP: 110 / 76 mmHg Health [facility] Wellness Sales Consultant: EDA Referring MD: Meño Newman MD Symptoms: R07.2 - Precordial pain Study Quality: Adequate ECG Rhythm: Sinus Conclusions: - The left ventricular systolic function is normal. The calculated ejection fraction is 60% by biplane method. - No obvious valvular pathology seen on this study. Findings Left Ventricle Normal left ventricular cavity size. There is normal left ventricular wall thickness. The left ventricular systolic function is normal. The calculated ejection fraction is 60% by biplane method. There is no evidence of regional wall motion abnormalities. Diastolic function is normal for age. Right Ventricle Normal right ventricular cavity size and systolic function. Atria Both atria are normal in size. Aortic Valve There is a normal trileaflet aortic valve. There is no aortic valve stenosis. There is no aortic valve regurgitation. Mitral Valve The mitral valve appears normal. There is no mitral valve regurgitation. There is no mitral valve stenosis. Pulmonic Valve The pulmonic valve is likely normal. Tricuspid Valve There is trace tricuspid valve regurgitation. There is no evidence of pulmonary hypertension. Great Vessels The sinuses of valsalva and sino tubular ridge are normal in size. Venous The inferior vena cava is normal in size and collapses greater than 50% with inspiration. Pericardium/Pleural There is no evidence of pericardial effusion. Prior Study Comparison No prior study available for comparison. Recommendations, Care & Conclusions No obvious valvular pathology seen on this study. Measurements 2D Linear Measurements IVSd: 0.95 0.6-0.9/0.6-1.0 cm LVIDd: 4.72 3.9-5.3/4.2-5.9 cm LVIDd Index: 2.30 2.4-3.2/2.2-3.1 cm/m2 LVIDs: 2.89 2.0-3.6 cm LVPWd: 0.80 0.7-1.1 cm LA Diam: 3.20 2.7-3.8/3.0-4.0 cm LAIDs Index: 1.56 1.5-2.3 cm/m2 LV Mass: 171.53 67-162/88-224 g LV Mass Index: 83.67 43-95/49-115 g/m2 LVOT Diam: 2.10 3.0+(-)1.3 cm 2D Systolic Function EF 4C: 63.20 >55% EF 2C: 56.90 >55% EF BiP: 60.00 >55% Mitral Valve MV Pk E: 0.75 MV PK A: 0.51 MV Decel Time: 236.00 E/A: 1.50 E'Lateral: 15.40 E'Medial: 11.20 E/E' Med: 6.70 E/E' Lat: 4.80 PHT: 69.00 MVA PHT: 3.19 Decel Tarrant: 3.15 Aortic Valve AoV Pk Mitchell: 1.20 AoV Mn Mitchell: 0.79 AoV VTI: 0.22 AoV Pk Grad: 6.00 Aov Mn Grad: 3.00 DERECK Cont.VTI: 3.04 LVOT LVOT Pk Mitchell: 1.08 LVOT Mn Mitchell: 0.68 LVOT VTI: 0.19 LVOT Pk Grad: 5.00 LVOT Mn Grad: 2.00 LVOT Diam: 2.10 LVOT Area: 3.46 Diastolic Function MV Pk E: 0.75 MV Pk A: 0.51 E/A: 1.50 E'Medial: 11.20 E/E' Med: 6.70 E' Laterial: 15.40 E/E' Lat: 4.80 Right Ventricle TAPSE (mm): 24.00 TVS' Mitchell: 12.60 Tricuspid Valve TR Pk Mitchell: 2.19 TR Pk Grad: 19.00 RA Press: 3.00 RVSP: 22.00 Great Vessels Aorta Sinus of Valsalva: 3.30 2.0-3.[address] Ridge: 2.27 1.7-3.4 cm Ao Asc: 2.60 2.1-3.4 cm Updated in Other Vendor System with Status of Final Meño Newman MD electronically signed on 11/30/2024 3:42:46 PM with status of Final
--- OUTSIDE RECORDS SUMMARY | 2024-11-29 08:32 | XMS_ITS | Clinical Summary ---
Author Organization [employer] Address [address] [facility] [address] [place] [address] Care Team Providers Care Substation Technician Name Role Phone Unavailable Primary Care [...] Most Recently Relevant to Health Maintenance Insurance [facility] MEDICAID STAND ADULT
== END ==
LOC: HO.CARD 08:16
PROVIDERS: PCP Internal Medicine; Visit Provider Internal Medicine
DX: R00.2 Palpitations (principal); R07.2 Precordial pain
CPT/HCPCS: 93242; 93306

== ENCOUNTER → 2024-11-29 08:21 | Outpatient (BNV) | payer OTHER, SELFPAY | PROVIDERS: PCP Internal Medicine; Visit Provider Internal Medicine | DX: R07.2 Precordial pain (principal) | CPT/HCPCS: 93306 ==

== ENCOUNTER 2024-12-10 09:46 | Outpatient (REF) | payer OTHER, SELFPAY ==
[2024-12-10 10:05] LABS: MANUAL DIFF FLAG NO
--- OUTSIDE RECORDS SUMMARY | 2024-12-10 10:06 | XMS_ITS | Clinical Summary ---
Author Organization [employer] Address [address] [facility] [address] [place] [address] Care Team Providers Care Director Smb Sales Name Role Phone Unavailable Primary Care Provider [...] Most Recently Relevant to Health Maintenance Insurance [facility]ENTAL-[facility] MEDICAID STAND ADULT
--- OUTSIDE RECORDS SUMMARY | 2024-12-10 10:06 | XMS_ITS | Clinical Summary ---
Author Organization [address] [place] [address] Address [address] [place] [address] Phone Care Team Providers Care Statue Maker Name Role Phone Jovan Mac MD Primary Care Provider Allergies Active Allergy Reactions Criticality Noted Date Comments Solu-Medrol Mix-O-Vial 09/06/2024 Medications silver sulfADIAZINE (Silvadene) 1 % cream Apply topically 1 (one) time each day. 50 g 09/06/19 26 Active Encounters Date Type Department Care Team Description 09/21/2024 1:30 PM EST Office Visit Orthopedic Surgery - [place] 250 [address] [facility] [address] [place] [phone] Mark Fairbanks, DPM Cellulitis of great toe, left (Primary Dx) from Last 3 Months Social History Tobacco [...] to complete this topic [place] Care Teams Statue Maker Relationship Specialty Start Date End Date Jovan Mac MD [address] [place] PCP - General Internal Medicine 02/08/19
[2024-12-10 10:49] LABS: Basophils Percent Auto 0.4 % (0-2); Eosinophils Percent Auto 0.4 % (0-4); Hematocrit 42.4 % (42.0-52.0); Hemoglobin 15.1 g/dl (14.0-18.0); Imm Gran Abs Auto 0.02 X10*3/uL (0.00-0.03); Imm Gran Pct Auto 0.3 % (0.0-0.4); Lymphocytes Absolute Auto 2.7 X10*3/uL (1.2-4.9); Lymphocytes Percent Auto 38.3 % (20-40); Mean Corpuscular HGB Conc 35.6 g/dl (31.0-36.0); Mean Corpuscular Hemoglobin 30.1 pg (27.0-33.0); Mean Corpuscular Volume 84.6 fL (80.0-98.0); Monocytes Absolute Auto 0.5 X10*3/uL (0.1-1.2); Monocytes Percent Auto 6.4 % (2-11); Neutrophils Absolute Auto 3.9 x10*3/uL (2.0-8.3); Neutrophils Percent Auto 54.2 % (45-73); Platelet Count 250 X10*3/uL (160-400); Red Blood Count 5.01 X10*6/uL (4.60-5.80); Red Cell Distribution Width 12.3 % (11.0-16.0); White Blood Count 7.2 X10*3/uL (4.8-10.8)
[2024-12-10 11:46] LABS: Alanine Aminotransferase 36 U/L (0-40); Albumin Level 4.7 g/dL (3.5-5.0); Alkaline Phosphatase 93 U/L (39-117); Anion Gap 13 (12-20); Aspartate Amino Transferase 24 U/L (5-37); Bilirubin Total 0.5 mg/dL (0.0-1.0); Blood Urea Nitrogen 13 mg/dL (9-16); C Reactive Protein < 0.04 mg/dL (< or = 0.50); Calcium 9.7 mg/dL (8.4-10.2); Carbon Dioxide 25 mmol/L (22-29); Chloride 109 mmol/L (96-108); Cholesterol 180 mg/dL (<200); Estimated Glomerular Filt Rate > 60; Glucose Fasting 79 mg/dL (60-99); Glucose Random 78 mg/dL (60-115); HDL Cholesterol 49 mg/dL (>40); Iron 64 mcg/dL (45-160); LDL Cholesterol Calculated 115 mg/dL (<100); Lipase 28 U/L (8-78); Percent Iron Saturation 23 % (15-50); Potassium 3.5 mmol/L (3.3-5.1); Sodium 143 mmol/L (135-145); Total Iron Binding Capacity 273 mcg/dL (228-428); Total Protein 7.8 g/dL (6.5-8.0); Triglycerides 84 mg/dL (<150); Unsaturated Iron Binding 209 ug/dL
[2024-12-13 17:29] LABS: Transglutaminase IgA <1.0 U/mL
== END 2024-12-10 09:47 | disposition home or self-care (01) ==
LOC: HO.LAB 09:46
PROVIDERS: Absent Provider Nurse Practitioner Family; PCP Internal Medicine; Visit Provider Internal Medicine
DX: E78.00 Pure hypercholesterolemia, unspecified (principal); K59.00 Constipation, unspecified; R10.9 Unspecified abdominal pain
CPT/HCPCS: 36415; 80053; 80061; 83540; 83690; 85025; 86140; 86364

== ENCOUNTER 2024-12-29 08:52 | Outpatient (REF) | payer OTHER, SELFPAY ==
--- NOTE | ~2024-12-29 | US_ITS ---
CLINICAL HISTORY: R10.9 - Unspecified abdominal pain --- Additional Notes or Special Instructions: pa in at [facility]Q and umbilical region US abdomen complete Comparison: None Findings: The visualized pancreas is normal. The aorta and inferior vena cava are normal caliber. There is increased hepatic echogenicity suggestive of steatosis. There is no intrahepatic bile duct dilatation. The common duct is 1.7 mm in diameter. The gallbladder is normal. There is no sonographic Castillo sign. The main portal vein is antegrade. The right kidney is 11.9 cm in length. The left kidney is 11.4 cm in length. The spleen is normal. No ascites. IMPRESSION: 1. Increased hepatic echogenicity suggesting steatosis. This document has been electronically signed by: Rosendo Martinez MD on 12/29/2024 13:02:53
--- OUTSIDE RECORDS SUMMARY | 2024-12-29 09:14 | XMS_ITS | Clinical Summary ---
Author Organization [employer] Address [address] [facility] 7[address] [place] [address] Care Team Providers Care Cake Press Operator Name Role Phone Unavailable Primary Care [...] 1995 HIV Screening 1997 SDOH Screening 1997 Disability Screening 1997 Alcohol/Substance Use Screening 2009 Family [...] Most Recently Relevant to Health Maintenance Insurance [facility]ENTAL-[facility] MEDICAID STAND ADULT
== END 2024-12-29 08:53 | disposition home or self-care (01) ==
LOC: HO.US 08:52
PROVIDERS: PCP Internal Medicine; Visit Provider Nurse Practitioner Family
DX: R10.9 Unspecified abdominal pain (principal)
CPT/HCPCS: 76700

== ENCOUNTER → 2024-12-29 08:54 | Outpatient (BNV) | payer OTHER, SELFPAY | PROVIDERS: PCP Internal Medicine; Visit Provider Radiology Diagnostic Radiology | DX: R10.9 Unspecified abdominal pain (principal) | CPT/HCPCS: 76700 ==

== ENCOUNTER 2025-01-05 14:49 | Outpatient (AMB) | payer OTHER, SELFPAY ==
[2025-01-05 14:54] VITALS: BP 120/72; PULSE 76; BMI 25.5
--- NOTE | 2025-01-05 14:54 | A.OFFVIS_ITS ---
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 Required: No Allergies methylprednisolone [Methylprednisolone] Allergy (Unknown, Verified 11/22/24 16:35) UNKNOWN Penicillins [PENICILLINS] Allergy (Unknown, Verified 11/22/24 16:35) RASH amitriptyline Adverse Reaction (Unknown, Verified 11/22/24 16:35) increased headaches metoclopramide [From REGLAN] Adverse Reaction (Unknown, Verified 11/22/24 16:35) RASH trazodone Adverse Reaction (Unknown, Verified 11/22/24 16:35) increased headaches Medication List - Last Reconciled 01/05/25 by Guillaume Chicas NP cetirizine 10 mg PO DAILY PRN docusate sodium (Colace) 200 mg (2 x 100 mg) PO BEDTIME PRN fluticasone propionate 110 mcg/actuation (Flovent HFA) 1 puff PO BID lorazepam 1 mg PO DAILY PRN 14 days methylcellulose (laxative) (Citrucel) 500 mg PO TID montelukast 10 mg PO DAILY omeprazole 20 mg PO DAILY ondansetron 4 mg PO BID-TID PRN sumatriptan succinate 50 mg PO PRN Ventolin HFA 90 mcg/actuation (albuterol sulfate) 2 puffs inhalation Q6H PRN NS zolpidem 10 mg PO BEDTIME PRN 30 days HPI Comments Details: This is a 30-year-old male patient coming in for a follow-up visit. Patient was previously seen in the office for chest pain, palpitations, and dizziness and subsequently underwent a echocardiogram and a Holter monitor. Today, patient reports feeling well overall and denies any exertional chest pain, shortness of breath, dizziness, orthopnea, PND, leg edema, presyncope, or syncope. Patient does report ongoing intermittent palpitations but no other associated symptoms with this. Patient notes that in child would, patient was told that he had an indented rib. He correlates this to being more sensitive to his heartbeat. Patient states that he has been very careful about caffeinated beverages as in the past he was told to voided since his heart rate was in the 150s. [facility] Medical History Constipation Abdominal pain Pure hypercholesterolemia GERD (gastroesophageal reflux disease) Anxiety Insomnia Migraine Allergic rhinitis Asthma Surgical History History of esophagogastroduodenoscopy (EGD) Hx of colonoscopy History of ear, nose, and throat (ENT) surgery History of appendectomy Family History Father Asthma Arthritis Diabetes Cirrhosis Mother Fibromyalgia HTN (hypertension) Migraines Heart disease Social History Household Members: Family Both parents involved: Yes Housing: House Alcohol intake: never Patient Tobacco Use Status: Never used Tobacco e-Cigarette/Vaping Use: Never Used Second Hand Smoke Exposure: Yes service: No Current occupational status: employed 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 [employer] Cognitive needs: No Hearing needs: No Vision needs: Yes (glasses) Review of Systems Const Denies chills, Denies fatigue, Denies fever(s), Denies frequent falls, Denies weakness, Denies weight gain and Denies weight loss ENT Denies dizziness Card Denies chest pain, Denies leg edema, Denies lightheadedness, Denies palpitations, Denies dyspnea, Denies dyspnea on exertion, Denies orthopnea and Denies other (loss of consciousness) Resp Denies cough, Denies dyspnea and Denies dyspnea on exertion GI Denies hematochezia and Denies change in stool character Musc Denies abnormal gait, Denies muscle weakness, Denies numbness, Denies radiating pain into limb and Denies tingling Neuro Denies abnormal gait, Denies dizziness, Denies frequent falls, Denies numbness, Denies tingling and Denies weakness Endo Denies fatigue and Denies palpitations Physical Exam Vital Signs: Last Vital Signs Pulse 76 01/05/25 14:54 BP 120/72 01/05/25 14:54 BMI result Body Mass Index 25.5 Const General: cooperative, healthy appearing, comfortable and no acute distress Orientation/consciousness: patient oriented x3 HEENT Head: Yes normal to inspection Neck Neck: Yes normal visual inspection, Yes trachea midline and Yes supple Chest Chest palpation & inspection: normal inspection of the chest Resp Effort & Inspection: normal respiratory effort Auscultation: clear to auscultation bilaterally, no crackles, no rales, no rhonchi and no wheezes Cardio Jugular venous distension: no JVD Palpation: normal PMI Rate: regular rate Rhythm: regular rhythm Heart sounds: S1 normal heart sound present, S2 normal heart sound present, no click, no gallops, no murmurs and no rubs Peripheral pulses: Peripheral pulses 2+ throughout GI Inspection: Yes normal to inspection Palpation (GI): Soft to palpation Auscultation: normal bowel sounds Skin General skin exam: no rashes or lesions noted Neuro General: patient oriented x3 Extrem General: Yes normal to inspection, No no pedal edema and No calf tenderness Psych Appearance: grossly normal Mental Status: mental status grossly normal Speech and movement: Normal speech and movement present Assessment & Plan Assessment & Plan (1) Palpitations: Code(s): R00.2 - Palpitations Category: Medical Plan: 11/29/2024-echo study showed a normal LV systolic function with an ejection fraction at 60%, with no wall motion or valvular abnormalities. 11/29/2024-patient underwent an Holter study that showed a baseline sinus rhythm with average heart rate at 75 beats per minute. Patient's symptoms that were marked correlated with sinus rhythm. Patient's highest heart rate during this time was 128. Given above findings and resolution of his chest pain and dizziness, no further testing or treatment is indicated at this time. Advised heart healthy diet, regular exercise, adequate hydration, avoiding c affeinated beverages including alcohol, and management of vascular risk factors. Follow up on an as-needed basis. In the interim, patient will call the office with any concerns or change in symptoms. This note was generated using voice recognition software. While every effort has been made to ensure accuracy and proper core blower, there may be occasional errors that could affect the content or meaning of the described symptoms. Coding Level of Care Code Est Pt Level 3 (76144) Complex EM visit Add On G2211 Diagnoses Palpitations R00.2 Time Spent (min) 29 Comment Time spent in reviewing the chart, test results, assessment, counseling and documentation.
--- OUTSIDE RECORDS SUMMARY | 2025-01-05 17:01 | XMS_ITS | Clinical Summary ---
Author Organization [employer] Address [address] [place] [address] Care Team Providers Care Scow Captain Name Role Phone Unavailable Primary Care Provider [...] Most Recently Relevant to Health Maintenance Insurance [facility] MEDICAID STAND ADULT
== END 2025-01-05 15:07 | disposition home or self-care (01) ==
LOC: HO.HCS 14:49
PROVIDERS: PCP Internal Medicine
DX: R00.2 Palpitations (principal)
CPT/HCPCS: 99213; G2211

== ENCOUNTER → 2025-01-05 14:49 | Outpatient (BNVA) | payer OTHER, SELFPAY | PROVIDERS: PCP Internal Medicine | DX: R00.2 Palpitations (principal) | CPT/HCPCS: 99212 ==

== ENCOUNTER 2025-02-10 08:42 | Outpatient (AMB) | payer OTHER, SELFPAY ==
--- NOTE | 2025-02-10 08:47 | MHC.OFFVISCO ---
Intake Vital Signs 02/10/25 08:52 Height 5 ft 11 in Weight 180 lb BMI 25.1 BP 116/54 L Blood Pressure Location Lt brachial Position Sitting Pulse 86 Pulse Oximetry (%) 98 Oxygen Delivery Method Room Air Intake Visit Reasons: 3m constipation Intake Note: Patient 3 month follow up for constipation/abdominal pain and lab results. No fecal or h pylori stool results. Patient cc: constipation, abdominal pain come and go, acid reflux, denies any other GI issues. Cloth Classer Required: No Accompanied by: Self / Same As Patient Allergies methylprednisolone (Methylprednisolone) Allergy (Unknown, Verified 02/10/25 08:47) UNKNOWN Penicillins (PENICILLINS) Allergy (Unknown, Verified 02/10/25 08:47) RASH amitriptyline Adverse Reaction (Unknown, Verified 02/10/25 08:47) increased headaches metoclopramide (From REGLAN) Adverse Reaction (Unknown, Verified 02/10/25 08:47) RASH trazodone Adverse Reaction (Unknown, Verified 02/10/25 08:47) increased headaches Anti-Coag Initial Assessment Social Hx Patient Tobacco Use Status: Never used Tobacco alcohol intake: never Alcohol intake frequency: holidays/special occasions only Anti-Coag. Education Record Cloth Classer Required: No Education Intervention/Brief Description of Teaching 9. Demonstrates understanding of notifying all providers of pending dental 10. Able to state Home Care instructions Coding
[2025-02-10 08:52] VITALS: BP 116/54; PULSE 86; O2SAT 98; BMI 25.1
--- OUTSIDE RECORDS SUMMARY | 2025-02-10 08:52 | XMS_ITS | Clinical Summary ---
Author Organization [address] [place] [address] [address] [place] [address] Phone Care Team Providers Care Numerical Control Operator Name Role Phone Jovan Mac MD Primary Care Provider Allergies Active Allergy Reactions Criticality Noted Date Comments Solu-Medrol Mix-O-Vial 09/06/2024 Medications silver sulfADIAZINE (Silvadene) 1 % cream Apply topically 1 (one) time each day. 50 g 09/06/19 26 Active Social History Tobacco Use Types Packs/Day Years [...] 5 Years) and At-Risk Patients (6 to 49 Years) (2 of 2 - PPSV23) 2003 01/21/2001 HPV Vaccines (3 - Male 3-dose series) 07/18/2014 04/25/2014, 11/08/2013 Depression Screening 06/29/2022 HIV Screening 06/29/2022 Hepatitis C Screening 06/29/2022 Social Influencers of Health Screening 06/29/2022 COVID-19 Vaccine () 03/28/2024 Influenza Vaccine (#1) 2025 , 07/09/2021, 06/18/2019, Additional history exists DTaP,Tdap,and Td Vaccines (9 - Td or Tdap) 11/24/2028 11/24/2018, 08/23/2014, 11/03/2009, Additional history exists Hepatitis B Vaccines Completed 1997, 1997, 1997 HIB Vaccines Completed 07/05/1999, 07/29, 1997, Additional history exists MMR Vaccines Completed 01/21/2001, 02/03/1998 IPV Vaccines Completed 06/05/2007, 12/27, 1997, Additional history exists Varicella Vaccines Completed 06/25/2007, 02/03/1998 Meningococcal ACWY Vaccine Completed 11/08, 11/03/2009, 10/28/2009 Hepatitis A Vaccines Aged Out No long er eligible based on patient's age to complete this topic Meningococcal B Vaccine Aged Out No l onger eligible based on patient's age to complete this topic RSV Immunization Patients Under 20 months Aged Out No longer eligible based on patient's age to complete this topic Insurance MEDICAID - [place] Care Teams Numerical Control Operator Relationship Specialty Start Date End Date Jovan Mac MD [address] [place] [address] [address] [place], [place] PCP - General Internal Medicine 7/15/19
--- NOTE | 2025-02-10 08:57 | A.OFFVIS_ITS ---
Vital Signs 02/10/25 08:52 Height 5 ft 11 in Weight 180 lb BMI 25.1 BP 116/54 L Blood Pressure Location Lt brachial Position Sitting Pulse 86 Pulse Oximetry (%) 98 Oxygen Delivery Method Room Air Intake Visit Reasons: 3m constipation Intake Note: Patient 3 month follow up for constipation/abdominal pain and lab results. No fecal or h pylori stool results. Patient cc: constipation, abdominal pain come and go, acid reflux, denies any other GI issues. Crop Picker Required: No Accompanied by: Self / Same As Patient Allergies methylprednisolone (Methylprednisolone) Allergy (Unknown, Verified 02/10/25 09:01) UNKNOWN Penicillins (PENICILLINS) Allergy (Unknown, Verified 02/10/25 09:01) RASH amitriptyline Adverse Reaction (Unknown, Verified 02/10/25 09:01) increased headaches metoclopramide (From REGLAN) Adverse Reaction (Unknown, Verified 02/10/25 09:01) RASH trazodone Adverse Reaction (Unknown, Verified 02/10/25 09:01) increased headaches HPI HPI 3m constipation: Details: Patient is a 29-year-old male with PMH of HLD, anxiety, insomnia, migraines, asthma and GERD. Nitesh is presenting for a follow-up from his last visit in October, during which he reported abdominal pain, GERD, and chronic constipation. An ultrasound was conducted to evaluate the gallbladder and pancreas due to concerns of involvement from surrounding organs; results were reassuring, showing a normal gallbladder with no stones and revealing fatty liver. Liver function tests showed liver enzymes within normal range. Nitesh reports that his abdominal pain is intermittent, does not seem position-related, and sometimes occurs at rest. He attributes the pain to possible muscle strain. His chronic constipation has shown some improvement with the intermittent use of a stool softener and fiber supplements, resulting in slightly softer stools. His bowel movement frequency is reported as two to three times per week. He experiences no blood in stools or nausea/vomiting. Nitesh has noted that consuming caffeine sometimes helps induce bowel movements. He has tried using Miralax in the past with partial relief but did not use it daily. Regarding reflux symptoms, they are intermittent and appear exacerbated by certain foods, such as pizza (possibly due to cheese and red sauce). Nitesh was previously well-controlled on omeprazole 40 mg but was reduced to 20 mg. He reports minimal symptoms when avoiding trigger foods. He has experienced esoph agitis noted on his last endoscopy in 2022, occasional regurgitation, and a feeling of rough swallowing, particularly with both liquids and solids. [facility] Medical History (Updated 02/11/25 @ 07:35 by Claire Reed CNP) Fatty liver Constipation Abdominal pain Pure hypercholesterolemia GERD (gastroesophageal reflux disease) Anxiety Insomnia Migraine Allergic rhinitis Asthma Surgical History History of esophagogastroduodenoscopy (EGD) Hx of colonoscopy History of ear, nose, and throat (ENT) surgery History of appendectomy Family History Father Asthma Arthritis Diabetes Cirrhosis Mother Fibromyalgia HTN (hypertension) Migraines Heart disease Social History Household Members: Family Housing: House Alcohol intake: never Patient Tobacco Use Status: Never used Tobacco e-Cigarette/Vaping Use: Never Used Second Hand Smoke Exposure: Yes service: No Current occupational status: employed 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 Cognitive needs: No Hearing needs: No Vision needs: Yes (glasses) Review of Systems Const Reports as per HPI ENT Reports as per HPI Card Reports as per HPI Resp Reports as per HPI GI Reports as per HPI Reports as per HPI Physical Exam Vital Signs: Last Vital Signs Pulse 86 02/10/25 08:52 BP 116/54 L 02/10/25 08:52 Pulse Ox 98 02/10/25 08:52 Oxygen Delivery Method Room Air 02/10/25 08:52 BMI result Body Mass Index 25.1 Const General: healthy appearing, no acute distress and well developed Nutritional Appearance: well nourished Orientation/consciousness: patient oriented x3 HEENT Head: Yes normal to inspection, Yes normocephalic and Yes atraumatic Face and sinus: Yes normal facial exam Eyes General: appearance normal, both eyes and all related structures Neck Neck: Yes normal visual inspection Resp Effort & Inspection: normal respiratory effort, able to speak in complete sentences, no tracheal deviation and symmetric chest movement Auscultation: clear to auscultation bilaterally Cardio Jugular venous distension: no JVD Rate: regular rate Rhythm: regular rhythm Heart sounds: S1 normal heart sound present, S2 normal heart sound present, no gallops and no murmurs GI Inspection: Yes normal to inspection and No distended Palpation (GI): Soft to palpation, not firm, nontender and No hepatosplenomegaly present Auscultation: normal bowel sounds Neuro General: patient oriented x3 Gait exam (Neuro): Normal gait present Psych Appearance: grossly normal Mental Status: mental status grossly normal Speech and movement: Normal speech and movement present Affect: normal affect Attitude: cooperative Thought process: Normal thought process present Thought content: Normal thought content present Insight: Good insight present (Psych) Judgement: Good judgement present (Psych) Results Reviewed Results Reviewed: Date of Service: 12/29/24 Procedure(s): US abdomen complete cc: Jovan Mac MD; Claire Reed CNP~ CLIICAL HISTORY: R10.9 - Unspecified abdominal pain --- Additional Notes or Special Instructions: pain at RUQ and umbilical region US abdomen complete Comparison: None Findings: The visualized pancreas is normal. The aorta and inferior vena cava are normal caliber. There is increased hepatic echogenicity suggestive of steatosis. There is no intrahepatic bile duct dilatation. The common duct is 1.7 mm in diameter. The gallbladder is normal. There is no sonographic Castillo sign. The main portal vein is antegrade. The right kidney is 11.9 cm in length. The left kidney is 11.4 cm in length. The spleen is normal. No ascites. IMPRESSION: 1. Increased hepatic echogenicity suggesting steatosis. This document has been electronically signed by: Rosendo Martinez MD on 12/29/2024 13:02:53 Assessment & Plan Assessment & Plan (1) Fatty liver: Code(s): K76.0 - Fatty (change of) liver, not elsewhere classified Category: Medical Plan: US showed steatosis; LFTs WNL, no evidence of hepatic injury. 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 Additional Tests: None at this time; labs reassuring. Medications: No changes; no pharmacologic tx indicated with normal LFTs. 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 Continued follow up with PCP office (2) GERD (gastroesophageal reflux disease): Comment: 04/17/23 EGD-esophagitis Code(s): K21.9 - Gastro-esophageal reflux disease without esophagitis Category: Medical Qualifiers: Esophagitis presence: without esophagitis Qualified Code(s): K21.9 - Gastro-esophageal reflux disease without esophagitis Plan: Persistent reflux sx, hx of esophagitis on EGD, partial response to PPI, ongoing dysphagia/regurgitation. Additional Tests: Order barium swallow to assess for structural dx (e.g., stricture, hiatal hernia); repeat EGD if abnormal or sx persist. Medications: increase omeprazole to 40 mg PO QD for sx control. Encouraged to take omeprazole as prescribed, taken at least 30-60 minutes before a meal. Education on GERD prevention : -Advised against heavy meals; encouraged small, frequent meals instead of large ones. - Instructed to remain upright for 2?3 hours after eating. - Advised to avoid late-night meals, spicy foods, caffeine, alcohol, known dietary triggers, and tight-fitting clothing. - Emphasis placed on gradual implementation of lifestyle changes to improve adherence and symptom control. Follow up: 3 mo to reassess sx, review barium swallow, and consider PPI titration. (3) Chronic constipation: Code(s): K59.09 - Other constipation Category: Medical Plan: Chronic constipation with intermittent abd pain, partial response to fiber/stool softener, no alarm features, normal labs/US, and no evidence of IBD or other organic dx. Additional Tests: None indicated at this time Medications: Start daily Miralax; continue fiber and stool softener; consider caffeine as adjunct. Reinforced lifestyle modifications to promote regularity: -higher fiber diet, examples provided -adequate hydration with water -150 minutes of moderate intensity exercise per week Plan Follow-up in 3 months or sooner as needed Time: I spent a total of 40 minutes on the date of encounter which includes: Preparing to see the patient (reviewed previous documentation, test results and medical history) Performing a medically appropriate exam and/or evaluation Ordering medications, tests, and procedures Documenting clinical information in the health record Orders: Orders [place] barium swallow 02/10/25 K21.9 - Gastro-esophageal reflux disease without esophagitis, R13.10 - Dysphagia, unspecified Medications: New polyethylene glycol 3350 (Miralax) Take 17G (one cap full) daily with 8oz of water 17 grams PO DAILY 510 grams 2RF constipation 30 days omeprazole Take one tablet daily. Best taken 30 minutes before meal 40 mg PO DAILY 90 caps 1RF Discontinued omeprazole Discontinued Reason: Doctor's Order 20 mg PO DAILY 90 caps 1RF Coding Level of Care Code Established Pt Est Pt Level 4 (56822) Patient Type Established Diagnoses Fatty liver K76.0 Gastroesophageal reflux disease without esophagitis K21.9 Esophagitis presence: without esophagitis Chronic constipation K59.09
== END 2025-02-10 09:32 | disposition home or self-care (01) ==
LOC: HO.HGI 08:43
PROVIDERS: PCP Internal Medicine; Visit Provider Nurse Practitioner Family
DX: K76.0 Fatty (change of) liver, not elsewhere classified (principal); K21.9 Gastro-esophageal reflux disease without esophagitis; K59.09 Other constipation
CPT/HCPCS: 99214

== ENCOUNTER → 2025-02-10 08:42 | Outpatient (BNVA) | payer OTHER, SELFPAY | PROVIDERS: PCP Internal Medicine; Visit Provider Nurse Practitioner Family | DX: K59.09 Other constipation (principal); K76.0 Fatty (change of) liver, not elsewhere classified; K21.9 Gastro-esophageal reflux disease without esophagitis | CPT/HCPCS: 99212 ==

== ENCOUNTER 2025-04-14 09:57 | Outpatient (REF) | payer OTHER, SELFPAY ==
[2025-04-14 17:57] LABS: Baso%MD 0.2 %; Eos%MD 1.4 %; Hematocrit 42.2 % (42.0-52.0); Hemoglobin 14.4 g/dl (14.0-18.0); IG%MD 0.2 %; Lymph%MD 32.5 %; Mean Corpuscular HGB Conc 34.1 g/dl (31.0-36.0); Mean Corpuscular Hemoglobin 30.2 pg (27.0-33.0); Mean Corpuscular Volume 88.5 fL (80.0-98.0); Mono%MD 7.0 %; NRBC Abs Auto 0.000 X10*3/uL (0.0-0.012); NRBC Pct Auto 0.0 /100WBC (0.0-0.2); Neut%MD 58.7 %; Platelet Count 237 X10*3/uL (160-400); Red Blood Count 4.77 X10*6/uL (4.60-5.80); White Blood Count 4.3 X10*3/uL (4.8-10.8)
[2025-04-14 18:13] LABS: Appearance Urine Cloudy; Glucose Urine UA Negative (Negative); PH 7.5 (5.0-9.0); Specific Gravity - Urine 1.025 (1.005-1.025)
[2025-04-14 18:21] LABS: Alanine Aminotransferase 60 U/L (0-40); Albumin Level 5.0 g/dL (3.5-5.0); Alkaline Phosphatase 86 U/L (39-117); Anion Gap 11 (12-20); Aspartate Amino Transferase 39 U/L (5-37); Blood Urea Nitrogen 11 mg/dL (9-16); Calcium 9.7 mg/dL (8.4-10.2); Carbon Dioxide 27 mmol/L (22-29); Chloride 108 mmol/L (96-108); Estimated Glomerular Filt Rate > 60; Potassium 4.1 mmol/L (3.3-5.1); Sodium 142 mmol/L (135-145); Total Protein 7.9 g/dL (6.5-8.0)
[2025-04-14 18:35] LABS: Protein/Creatinine Ratio, Ur 0.05 (<0.2); Total Protein Urine Random 11 mg/dL (<12)
[2025-04-14 20:58] LABS: Band Neutrophils Percent 1 % (3-5); Eosinophils Percent Manual 1 % (0-4); Lymphocytes Absolute Manual 1.4 X10*3/uL (1.2-4.9); Lymphocytes Percent Manual 33 % (20-40); Monocytes Absolute Manual 0.2 X10*3/uL (0.1-1.2); Monocytes Percent Manual 4 % (2-11); Neutrophils Absolute Manual 2.7 X10*3/uL (2.0-8.3); Neutrophils Percent Manual 61 % (45-73)
[2025-04-14 20:59] LABS: RBC Morphology NORMAL
[2025-04-15 21:14] LABS: Antibody to SS-A Antigen <1.0 NEG AI (<1.0 NEG); Antibody to SS-B Antigen <1.0 NEG AI (<1.0 NEG); SM/Ribonucleoprotein Ab <1.0 NEG AI (<1.0 NEG); Smith Protein <1.0 NEG AI (<1.0 NEG)
== END 2025-04-14 09:58 | disposition home or self-care (01) ==
LOC: HO.HKASLDS 09:57
PROVIDERS: PCP Internal Medicine; Visit Provider Student in an Organized Health Care Education/Training Program
DX: M32.9 Systemic lupus erythematosus, unspecified (principal); M54.9 Dorsalgia, unspecified; M25.561 Pain in right knee; M25.562 Pain in left knee; M25.511 Pain in right shoulder; M25.512 Pain in left shoulder; M25.571 Pain in right ankle and joints of right foot; M25.572 Pain in left ankle and joints of left foot
CPT/HCPCS: 36415; 80053; 81003; 82570; 84156; 85007; 85027; 85652; 86140; 86160; 86200; 86225; 86235; 86431; 99212

== ENCOUNTER 2025-04-14 09:57 | Outpatient (AMB) | payer OTHER, SELFPAY ==
--- NOTE | 2025-04-14 10:00 | A.OFFVIS_ITS ---
Vital Signs 04/14/25 10:02 Height 5 ft 11 in Weight 185 lb 13.595 oz BMI 25.9 BP 132/68 Blood Pressure Location Lt brachial Position Sitting Pulse 91 Pulse Source Pulse Oximeter Pulse Oximetry (%) 97 Oxygen Delivery Method Room Air Intake Visit Reasons: joint pain Intake Note: Patient presents for joint pain. Allergies methylprednisolone (Methylprednisolone) Allergy (Unknown, Verified 04/14/25 10:01) UNKNOWN Penicillins (PENICILLINS) Allergy (Unknown, Verified 04/14/25 10:01) RASH amitriptyline Adverse Reaction (Unknown, Verified 04/14/25 10:01) increased headaches metoclopramide (From REGLAN) Adverse Reaction (Unknown, Verified 04/14/25 10:01) RASH trazodone Adverse Reaction (Unknown, Verified 04/14/25 10:01) increased headaches Medication List - Last Reconciled 04/14/25 by eRba Ny MD cetirizine 10 mg PO DAILY PRN docusate sodium 200 mg (2 x 100 mg) PO BEDTIME PRN fluoxetine 10 mg PO DAILY fluticasone propionate 110 mcg/actuation (Flovent HFA) 1 puff PO BID lorazepam 1 mg PO DAILY PRN 14 days methylcellulose (laxative) (Citrucel) 500 mg PO TID montelukast 10 mg PO DAILY omeprazole 40 mg PO DAILY ondansetron 4 mg PO BID-TID PRN polyethylene glycol 3350 (Miralax) 17 grams PO DAILY 30 days sumatriptan succinate 50 mg PO PRN Ventolin HFA 90 mcg/actuation (albuterol sulfate) 2 puffs inhalation Q6H PRN NS zolpidem 10 mg PO BEDTIME PRN 30 days HPI Comments Details: Patient is a 30-year-old male with depression/anxiety, GERD, asthma, migraines and polyarticular osteoarthritis here today for follow up Interval History: Patient last seen 04/10/[address] Moody - new patient exam for polyarthralgias - no evidence of active synovitis on exam Today, - Not on any rheum medications - States that he has been having joint pain since he was 17 years old. He would complain about low back pain as well as knee and ankle pain. Saw a pediatric church business administrator who diagnosed him with a form of arthritis and fibromyalgia and was started on naproxen and gabapentin which helped his pain - He was lost to follow up after moving away from the area to [place], when he returned the church business administrator no longer worked in the practice and so he got the medications prescribed by his primary initially but then after changing primaries it was discontinued. - Continues to complain of back pain, knee pain, ankle pain, wrist pain, elbow pain and shoulder pain - FH of autoimmune disease: sister and mom has lupus - Rashes: states that he gets this whole body rash that occurs every 2-3 years that feels warm to touch and red (no pictures) - Sicca symptoms: dry eyes and dry mouth, uses refresh drops - Gets SOB likely 2/2 his asthma - Denies photosensitivity, alopecia, oral/nasal ulcers, lymphadenopathy, chest pain, inflammatory type joint pain, foamy urine, lower extremity edema, muscle weakness, Raynaud's Also denies history of seizure, CVA, psychosis, history of kidney problems, history of cytopenias, history of VTE including PE or DVTs Rheumatologic History: Initial History: The patient presents for evaluation of multiple areas of joint pain. He says this dates back to his high school years. He did have an injury to the left knee that resulted in swelling. He also had a swollen ankle after a fall. These were athletic related activities. The ankle occasionally has a popping sound. The knee is occasionally swollen with weight-bearing activity. He also has other areas of pain including the shoulders, wrists, hands, and the other ankle. None of the other joints seem to show any swelling. He apparently did see a church business administrator when he was in the pediatric age group but I could not lo nohemy any note. It was at [facility] but he does not know who the doctor was. He used to take naproxen for his symptoms but recently just been using lidocaine patches and compressions stockings. He also has problems with migraine headaches, asthma and anxiety. 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 Current Rheumatology Medication(s): COUNT INCLUDES THE [facility] Medical History (Updated 02/11/25 @ 07:35 by Claire Reed CNP) Fatty liver Constipation Abdominal pain Pure hypercholesterolemia GERD (gastroesophageal reflux disease) Anxiety Insomnia Migraine Allergic rhinitis Asthma Surgical History (Reviewed 04/14/25 @ 10:02 by Liana Grant [facility]) History of esophagogastroduodenoscopy (EGD) Hx of colonoscopy History of ear, nose, and throat (ENT) surgery History of appendectomy Family History Father Asthma Arthritis Diabetes Cirrhosis Mother Fibromyalgia HTN (hypertension) Migraines Heart disease Social History Household Members: Family Both parents involved: Yes Housing: House Alcohol intake: never Patient Tobacco Use Status: Never used Tobacco e-Cigarette/Vaping Use: Never Used Second Hand Smoke Exposure: Yes service: No Current occupational status: employed 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 Cognitive needs: No Hearing needs: No Vision needs: Yes (glasses) Review of Systems Const Details: Review of Systems Constitutional: Denies fever, chills, weight loss ENT: Denies vision changes, eye pain or eye redness, dental caries, dry mouth GI: Denies nausea, vomiting, diarrhea, abdominal pain, change in BM Pulm: Denies SOB, FELIZ, hemoptysis, wheezing Cards: Denies chest pain, palpitations Skin: Denies Raynaud's, rash, nail changes, photosensitivity, SHOE SHINER: Denies headaches, weakness, paresthesias, recurrent falls MSK: as per HPI All other systems reviewed and are unremarkable except noted above Physical Exam Exam Exam: Vital signs reviewed Physical Examination CONSTITUITIONAL Patient alert and cooperative. Well appearing and in no apparent painful distress HEENT Schrimer's test * Right eye: 16mm * Left eye:18mm MSK Hands * Right Hand: Able to make a fist. No swelling or tenderness to palpation of the MCPs, PIPs or DIPs. * Left Hand: Able to make a fist. No swelling or tenderness to palpation of the MCPs, PIPs or DIPs. * positive CMC grind test bilaterally Wrists * Right Wrist: Full ROM to flexion and extension. No swelling or TTP * Left Wrist: Full ROM to flexion and extension. No swelling or TTP Elbows * Right Elbow: Full ROM. No swelling or TTP. No TTP of the medial epicondyle. TTP of the lateral epicondyle * Left Elbow: Full ROM. No swelling or TTP. No TTP of the medial epicondyle. TTP of the lateral epicondyle Shoulders * Right shoulder: Full ROM. No swelling noted. TTP of the AC joint. No TTP of the subacromial bursa. No TTP of the posterior shoulder * Left shoulder: Full ROM. No swelling noted. TTP of the AC joint. No TTP of the subacromial bursa. No TTP of the posterior shoulder Hip bursa: No tenderness to palpation bilaterally Knees * Right knee: Full ROM. No swelling noted. No TTP of the knee joint line. TTP of pes anserine bursa * Left knee: Full ROM. No swelling noted. No TTP of the knee joint line. TTP of pes anserine bursa. * Pain with joint motion Ankles * Right ankle: Good ankle dorsiflexion and plantar flexion. No swelling. TTP of the ankle joint * Left ankle: Good ankle dorsiflexion and plantar flexion. No swelling. TTP of the ankle joint Feet * Right foot: Negative squeeze test * Left foot: Negative squeeze test Tender points? * No tenderness to palpation of the bilateral trapezius, supraspinatus, anterior costochondral junctions, bilateral suboccipital muscle insertions SKIN No rashes Vital Signs: Last Vital Signs Pulse 91 04/14/25 10:02 BP 132/68 04/14/25 10:02 Pulse Ox 97 04/14/25 10:02 Oxygen Delivery Method Room Air 04/14/25 10:02 BMI result Body Mass Index 25.9 Results Reviewed Results Reviewed: Laboratory Tests 01/28/21 05/17/24 12/10/24 02:03 09:05 10:03 WBC 7.2 RBC 5.01 Hgb 15.1 Hct 42.4 Plt Count 250 ESR 2 Sodium 143 Potassium 3.5 Chloride 109 H Carbon Dioxide 25 BUN 13 Creatinine 0.80 AST 24 ALT 36 C-Reactive Protein < 0.04 25-OH Vitamin D Total 18.4 L Laboratory Tests 03/17/19 17:27 ZEESHAN Screen Negative XR Right Hand 05/2024 FINDINGS: Bone mineralization is normal. Mild degenerative changes with narrowing at the first carpometacarpal joint. Alignment preserved. IMPRESSION: Mild degenerative changes first carpometacarpal joint. Assessment & Plan Assessment & Plan (1) Polyarthralgia: Code(s): M25.50 - Pain in unspecified joint Category: Medical Plan: #Polyarthralgia Patient is a 30-year-old male presenting with polyarthralgias since age 17. Flares no evidence of active synovitis on examination however he does have scattered tendonitis and bursitis. Normal Adeline's test. Given his strong family history of autoimmune disease in his mom and his sister I think he warrants further diagnostic workup Plan - Labs: CBC, CMP, ESR, CRP, C3, C4, dsDNA, UA, UPC, ZEESHAN, Bright, Sjogens, RF, CCP - XRs: Hands, Knees, Elbows, Ankles, Wrists, Shoulders, L spine, SI joints - Start gabapentin 300mg nightly - Follow up in 2 weeks Plan This is my first visit with the patient. I spent 45 minutes reviewing the record and labs, taking a history, examining the patient, discussing the treatment plan, ordering diagnostic work up and documenting in the medical record Orders: Orders Complete Blood Count Man Dif Today M25.50 - Pain in unspecified joint, M32.9 - Systemic lupus erythematosus, unspecified Comprehensive Met. Panel Today M25.50 - Pain in unspecified joint, M32.9 - Systemic lupus erythematosus, unspecified Erythrocyte Sedimentation Rate Today M25.50 - Pain in unspecified joint, M32.9 - Systemic lupus erythematosus, unspecified Sm Sm/CABINET FINISHER Antibodies Today M25.50 - Pain in unspecified joint, M32.9 - Systemic lupus erythematosus, unspecified Rheumatoid Factor Today M25.50 - Pain in unspecified joint XR hand RT min 3V Today M25.50 - Pain in unspecified joint XR hand LT min 3V Today M25.50 - Pain in unspecified joint XR hip LT min 2V Today M25.50 - Pain in unspecified joint XR hip RT min 2V Today M25.50 - Pain in unspecified joint XR knee LT 3V Today M25.50 - Pain in unspecified joint XR shoulder RT min 2V Today M25.50 - Pain in unspecified joint XR wrist LT min 3V Today M25.50 - Pain in unspecified joint XR wrist RT min 3V Today M25.50 - Pain in unspecified joint C Reactive Protein Today M25.50 - Pain in unspecified joint, M32.9 - Systemic lupus erythematosus, unspecified Complement C3 Today M25.50 - Pain in unspecified joint, M32.9 - Systemic lupus erythematosus, unspecified Complement C4 Today M25.50 - Pain in unspecified joint, M32.9 - Systemic lupus erythematosus, unspecified UA and rflx microscopic Today M25.50 - Pain in unspecified joint, M32.9 - Systemic lupus erythematosus, unspecified Protein Creatinine Ratio, Ur Today M25.50 - Pain in unspecified joint, M32.9 - Systemic lupus erythematosus, unspecified Sjogren's Antibodies Today M25.50 - Pain in unspecified joint, M32.9 - Systemic lupus erythematosus, unspecified Anti DNA DS Antibody Today M25.50 - Pain in unspecified joint, M32.9 - Systemic lupus erythematosus, unspecified Cyclic Citrullinated Peptide Today M25.50 - Pain in unspecified joint XR sacroiliac joint min 3V Today M25.50 - Pain in unspecified joint XR lumbar spine 4V min Today M25.50 - Pain in unspecified joint XR knee RT 3V Today M25.50 - Pain in unspecified joint XR elbow LT min 3V Today M25.50 - Pain in unspecified joint XR elbow RT min 3V Today M25.50 - Pain in unspecified joint XR shoulder LT min 2V Today M25.50 - Pain in unspecified joint XR ankle LT min 3V Today M25.50 - Pain in unspecified joint XR ankle RT min 3V Today M25.50 - Pain in unspecified joint Medications: New gabapentin 300 mg PO BEDTIME 90 caps 1RF M25.50 - Pain in unspecified joint Coding Level of Care Code Est Pt Level 5 (27786) Complex EM visit Add On G2211 Diagnoses Polyarthralgia M25.50
[2025-04-14 10:02] VITALS: BP 132/68; PULSE 91; O2SAT 97; BMI 25.9
--- OUTSIDE RECORDS SUMMARY | 2025-04-14 11:43 | XMS_ITS | Clinical Summary ---
Author Organization [address] [place] [address] Address [address] [place] [address] Phone Care Team Providers Care Financial Brokers Name Role Phone Jovan Mac MD Primary [...] - Male 3-dose series) 07/18/2014 04/25/2014, 11/08/2013 HIV Screening 06/29/2022 Hepatitis C Screening 06/29/2022 Social Influencers of Health Screening 06/29/2022 Depression Screening 07/28/2024 COVID-19 Vaccine () 03/28/2025 Influenza Vaccine (#1) 2025 , 07/09/2021, 06/18/2019, [...] topic Insurance MEDICAID - [place] Care Teams Financial Brokers Relationship Specialty Start Date End Date Jovan Mac MD [address] [place] [address] [address] [place], [place] PCP - General Internal Medicine 7/15/19
--- OUTSIDE RECORDS SUMMARY | 2025-04-14 11:43 | XMS_ITS | Clinical Summary ---
Author Organization [facility] Address [address] [facility] [address] [place] [address] Care Team Providers Care Plastic Bubble Packer Name Role Phone Unavailable Primary Care Provider [...] Years) and At-Risk Patients (6 to 49) Years (1 of 2 - PCV) 01/02/2016 01/21/2001 COVID-19 Vaccine (1 - season) 2025 Influenza Vaccine (#1) 2025 , 07/09/2021, 06/18/2019, Additional history exists Dental X-Ray: Bitewings 06/29/2025 06/28/2024 Tobacco Screening [...] 11/08/2013 , 11/08/2013, 11/03/2009, Additional history exists Hepatitis A Vaccines Aged [...] Most Recently Relevant to Health Maintenance Insurance [facility] MEDICAID STAND ADULT
== END 2025-04-14 10:54 | disposition home or self-care (01) ==
PROVIDERS: PCP Internal Medicine; Visit Provider Student in an Organized Health Care Education/Training Program
DX: M25.50 Pain in unspecified joint (principal)
CPT/HCPCS: 99215

== ENCOUNTER 2025-04-14 14:41 | Outpatient (REF) | payer OTHER, SELFPAY ==
--- NOTE | ~2025-04-14 | XR_ITS ---
Exam: XR ANKLE 3 VIEWS BILATERAL, TECHNIQUE: 3 view lower extremity, bilateral ankle INDICATION: M25.50 - Pain in unspecified joint COMPARISON: None available. FINDINGS: RIGHT ANKLE: Ankle mortise is congruent. Talar dome is intact. No degenerative changes are identified. There is no widening of the syndesmosis. There is no calcaneal spur. LEFT ANKLE: Ankle mortise is congruent. Talar dome is intact. No degenerative changes are identified. There is no widening of the syndesmosis. There is no calcaneal spur. XR/XR Ankle Tono min 3V IMPRESSION: Right ankle: Unremarkable right ankle Left ankle: Unremarkable left ankle Electronically signed by: Aaron Sandra MD 04/14/2025 04:18 PM EDT
--- NOTE | ~2025-04-14 | XR_ITS ---
EXAMINATION: XR SACROILIAC JOINTS CLINICAL INFORMATION: M25.50 - Pain in unspecified joint COMPARISON: None available. TECHNIQUE: 3 views of the sacroiliac joints FINDINGS: SI joints are symmetrical without sclerosis, narrowing, effusion, or other abnormalities. No bony abnormality is seen. Suture material is visible in the right lower quadrant, cephalad to the right SI joint. XR/XR sacroiliac joint min 3V IMPRESSION: Unremarkable sacroiliac joints. Electronically signed by: Aaron Sandra MD 04/14/2025 04:31 PM EDT
--- NOTE | ~2025-04-14 | XR_ITS ---
Examination: 4 view bilateral wrists. TECHNIQUE: PA, oblique, lateral, and navicular view x-rays bilateral wrists. INDICATION: Joint pain FINDINGS: Right wrist: Joint spaces are preserved. No degenerative changes are evident. No erosions are seen Left wrist: Joint spaces are preserved. No degenerative changes are evident. No erosions are seen XR/XR Wrist Tono min 3V Impression: Unremarkable bilateral wrist. Electronically signed by: Aaron Sandra MD 04/14/2025 04:35 PM EDT
--- NOTE | ~2025-04-14 | XR_ITS ---
EXAMINATION: XR BILATERAL HIPS WITH AP PELVIS CLINICAL INFORMATION: M25.50 - Pain in unspecified joint COMPARISON: None available. TECHNIQUE: AP view of the pelvis and frog-leg lateral views of each hip were obtained. FINDINGS: Right hip: Joint spaces are preserved. No degenerative changes are identified. No bony abnormalities are noted. Left hip: Joint spaces are preserved. There are no osteophytes or erosions. Bony elements are unremarkable. Linear chondrocalcinosis is visible in the pubic symphysis joint. XR/XR hips ROBI min 3V IMPRESSION: Unremarkable bilateral hips. Chondrocalcinosis is visible in the pubic symphysis joint. Electronically signed by: Aaron Sandra MD 04/14/2025 04:27 PM EDT
--- NOTE | ~2025-04-14 | XR_ITS ---
Exam: X-ray, bilateral knees.XR KNEE 3 VIEWS BILATERAL TECHNIQUE: Three views lower extremity joint, bilateral knees INDICATION: M25.50 - Pain in unspecified joint COMPARISON: None available. FINDINGS: RIGHT KNEE: There is no joint effusion. Joint spaces are preserved. There are no osteophytes or erosions. Intercondylar tubercles are mildly peaked. LEFT KNEE: Medial intercondylar tubercles mildly peaked. Joint spaces are preserved. There is no soft tissue calcification. No osteophytes or erosions are evident. XR/XR Knee Tono 3V IMPRESSION: Right knee: Intercondylar tubercles are peaked, no other degenerative changes. Left knee: Medial intercondylar tubercle is peaked, no other degenerative change. Electronically signed by: Aaron Sandra MD 04/14/2025 04:37 PM EDT
--- NOTE | ~2025-04-14 | XR_ITS ---
Exam: 4 view x-ray bilateral shoulders TECHNIQUE: Grashey, AP, scapular Y, and axillary view, bilateral shoulder x-rays INDICATION: Joint pain Prior: None FINDINGS: Right shoulder: AC joint is intact and not degenerated. Glenohumeral joint is not dislocated and not degenerated. No fractures are evident. Left shoulder: AC joint is intact and not degenerated. Glenohumeral joint is intact and unremarkable. No fracture is evident. XR/XR Shoulder Tono min 2V IMPRESSION: Unremarkable bilateral shoulder x-rays Electronically signed by: Aaron Sandra MD 04/14/2025 04:30 PM EDT
--- NOTE | ~2025-04-14 | XR_ITS ---
Examination: 5 view lumbar spine x-ray TECHNIQUE: AP, lateral, lateral spot, bilateral oblique views INDICATION: Joint pain FINDINGS: There are 5 nonrib-bearing lumbar segments. Vertebral body height and alignment is preserved. There is minimal disc space narrowing in the lower thoracic and upper lumbar spine. No other abnormalities are seen. XR/XR lumbar spine 4V min IMPRESSION: Mild disc space narrowing in the lower thoracic and upper lumbar spine. Electronically signed by: Aaron Sandra MD 04/14/2025 04:36 PM EDT
--- NOTE | ~2025-04-14 | XR_ITS ---
Exam: Three-view bilateral elbow INDICATION: Joint pain TECHNIQUE: AP, oblique, lateral view x-rays extremity joint, elbows bilateral Prior: None FINDINGS: RIGHT ELBOW: Joint spaces are preserved. There are no osteophytes. There are no erosions. Anterior fat pad is visible but not displaced. Posterior fat pad is not visible. No fracture is identified. LEFT ELBOW: Joint spaces are preserved. There are no osteophytes. There are no erosions. Anterior fat pad is visible but not displaced. Posterior fat pad is not visible. No fracture is identified. XR/XR Elbow Tono min 3V Impression: Unremarkable bilateral elbows Electronically signed by: Aaron Sandra MD 04/14/2025 04:22 PM EDT
--- NOTE | ~2025-04-14 | XR_ITS ---
Exam: XR HAND 3 VIEWS BILATERAL, bilateral hand x-rays TECHNIQUE: AP, lateral, and oblique views upper extremity, bilateral hands INDICATION: M25.50 - Pain in unspecified joint COMPARISON: None available. FINDINGS: RIGHT HAND: Joint spaces are preserved. Faint calcific density is visible in the first, second and third MCP joints. No osteophytes are noted. No erosions are seen. LEFT HAND: Joint spaces are preserved. No osteophytes are seen. No erosions are identified. Faint chondrocalcinosis is likely present and MCP joints, 1st-5th. XR/XR Hand Bilat min 3v IMPRESSION: Faint chondrocalcinosis is evident in multiple MCP joints. Given the patient's age, hyperparathyroidism and hemachromatosis should be considered in addition to calcium pyrophosphate deposition disease. Right hand: Unremarkable otherwise Left hand: Unremarkable otherwise Electronically signed by: Aaron Sandra MD 04/14/2025 04:26 PM EDT
== END 2025-04-14 14:42 | disposition home or self-care (01) ==
LOC: HO.XRAY 14:41
PROVIDERS: PCP Internal Medicine; Visit Provider Student in an Organized Health Care Education/Training Program
DX: M25.562 Pain in left knee (principal); M25.561 Pain in right knee; M25.532 Pain in left wrist; M25.531 Pain in right wrist; M53.3 Sacrococcygeal disorders, not elsewhere classified; M25.512 Pain in left shoulder; M25.511 Pain in right shoulder; M25.552 Pain in left hip; M25.551 Pain in right hip; M25.542 Pain in joints of left hand; M25.541 Pain in joints of right hand; M25.522 Pain in left elbow; M25.521 Pain in right elbow; M25.572 Pain in left ankle and joints of left foot; M25.571 Pain in right ankle and joints of right foot
CPT/HCPCS: 72110; 72202; 73030; 73080; 73110; 73130; 73522; 73562; 73610

== ENCOUNTER → 2025-04-14 14:46 | Outpatient (BNV) | payer OTHER, SELFPAY | PROVIDERS: PCP Internal Medicine; Visit Provider Radiology Diagnostic Radiology | DX: M25.559 Pain in unspecified hip (principal); M51.360 Other intervertebral disc degeneration, lumbar region with discogenic back pain only; M46.1 Sacroiliitis, not elsewhere classified; M25.519 Pain in unspecified shoulder; M25.569 Pain in unspecified knee; M25.579 Pain in unspecified ankle and joints of unspecified foot; M25.529 Pain in unspecified elbow; M25.539 Pain in unspecified wrist; M11.241 Other chondrocalcinosis, right hand | CPT/HCPCS: 72110; 72202; 73030; 73080; 73110; 73130; 73522; 73562; 73610 ==

== ENCOUNTER 2025-05-04 08:44 | Outpatient (REF) | payer OTHER, SELFPAY ==
--- NOTE | ~2025-05-04 | FL_ITS ---
EXAMINATION: XR FLUOROSCOPY BARIUM SWALLOW CLINICAL INFORMATION: GERD type symptoms. Prior endoscopy one year ago showed inflammation of the esophagus. COMPARISON: 09/15/2018. TECHNIQUE: Fluoroscopic air contrast barium swallow examination was performed utilizing standard techniques with thin and thick barium and effervescent granules. Numerous spot images were obtained. Several fluoroscopic image hold cine sequences were also obtained. FINDINGS: BARIUM SWALLOW: Lateral cine images of the oropharynx and hypopharynx demonstrate normal swallow mechanism with normal epiglottic inversion and soft palate elevation. No laryngeal penetration, glottic or subglottic aspiration identified. No nasopharyngeal reflux present. Hypopharyngeal structures appear normal without evidence of mass or diverticulum. There was no significant cricopharyngeal achalasia. Dual and single contrast images of the esophagus demonstrate normal caliber, contour, and mucosal pattern. No evidence of stricture, mass, or ulcerations identified. Esophageal peristalsis was essentially normal. No evidence of hiatus hernia identified. Gastroesophageal reflux was identified to the mid esophageal level. Dual contrast and single contrast images of the stomach demonstrated normal contour and mucosal pattern without evidence of mass, ulceration, or other abnormality. Normal gastric rugal fold pattern. Contrast freely passed into the gastric antrum and duodenal bulb without delay. FLUOROSCOPY TIME: 2 minutes, 27 seconds Number of Spot Images:10 Number of cines obtained: 10 DOSE AREA PRODUCT: 2573 uGy-m2 (microgray-meter squared) FL/FL barium swallow with air IMPRESSION: 1. Gastroesophageal reflux identified to the mid esophageal level. 2. Otherwise, normal barium swallow. Electronically signed by: Victor M Grace MD 05/04/2025 09:30 AM EDT
== END 2025-05-04 08:45 | disposition home or self-care (01) ==
LOC: HO.XRAY 08:44
PROVIDERS: PCP Internal Medicine; Visit Provider Nurse Practitioner Family
DX: R13.10 Dysphagia, unspecified (principal); K21.9 Gastro-esophageal reflux disease without esophagitis; M25.50 Pain in unspecified joint; M25.562 Pain in left knee; G89.29 Other chronic pain
CPT/HCPCS: 74221; 99212

== ENCOUNTER → 2025-05-04 08:46 | Outpatient (BNV) | payer OTHER, SELFPAY | PROVIDERS: PCP Internal Medicine; Visit Provider Radiology Diagnostic Radiology | DX: K21.9 Gastro-esophageal reflux disease without esophagitis (principal) | CPT/HCPCS: 74221 ==

== ENCOUNTER 2025-05-04 13:01 | Outpatient (AMB) | payer OTHER, SELFPAY ==
--- NOTE | 2025-05-04 13:04 | A.OFFVIS_ITS ---
Vital Signs 05/04/25 13:08 Height 5 ft 11 in Weight 184 lb 4.903 oz BMI 25.7 BP 122/80 Blood Pressure Location Lt brachial Position Sitting Pulse 86 Pulse Source Pulse Oximeter Pulse Oximetry (%) 98 Oxygen Delivery Method Room Air Intake Visit Reasons: 2week f/u Intake Note: Patient presents for polyarthralgia follow up. Allergies methylprednisolone (Methylprednisolone) Allergy (Unknown, Verified 05/04/25 13:08) UNKNOWN Penicillins (PENICILLINS) Allergy (Unknown, Verified 05/04/25 13:08) RASH amitriptyline Adverse Reaction (Unknown, Verified 05/04/25 13:08) increased headaches metoclopramide (From REGLAN) Adverse Reaction (Unknown, Verified 05/04/25 13:08) RASH trazodone Adverse Reaction (Unknown, Verified 05/04/25 13:08) increased headaches Medication List - Last Reconciled 05/04/25 by Reba Ny MD cetirizine 10 mg PO DAILY PRN docusate sodium 200 mg (2 x 100 mg) PO BEDTIME PRN fluoxetine 10 mg PO DAILY fluticasone propionate 110 mcg/actuation (Flovent HFA) 1 puff PO BID gabapentin 300 mg PO BEDTIME lorazepam 1 mg PO DAILY PRN 14 days methylcellulose (laxative) (Citrucel) 500 mg PO TID montelukast 10 mg PO DAILY omeprazole 40 mg PO DAILY ondansetron 4 mg PO BID-TID PRN 30 days polyethylene glycol 3350 (Miralax) 17 grams PO DAILY 30 days sumatriptan succinate 50 mg PO PRN Ventolin HFA 90 mcg/actuation (albuterol sulfate) 2 puffs inhalation Q6H PRN NS zolpidem 10 mg PO BEDTIME PRN 30 days HPI Comments Details: Patient is a 30-year-old male with depression/anxiety, GERD, asthma, migraines and polyarticular osteoarthritis here today for follow up Interval History: Patient last seen 04/14/25 - Not on any rheum medications - States that he has been having joint pain since he was 17 years old. He would complain about low back pain as well as knee and ankle pain. Saw a pediatric patient care provider who diagnosed him with a form of arthritis and fibromyalgia and was started on naproxen and gabapentin which helped his pain - He was lost to follow up after moving away from the area to [place], when he returned the patient care provider no longer worked in the practice and so he got the medications prescribed by his primary initially but then after changing primaries it was discontinued. - Continues to complain of back pain, knee pain, ankle pain, wrist pain, elbow pain and shoulder pain - FH of autoimmune disease: sister and mom has lupus - Rashes: states that he gets this whole body rash that occurs every 2-3 years that feels warm to touch and red (no pictures) - Sicca symptoms: dry eyes and dry mouth, uses refresh drops - Gets SOB likely 2/2 his asthma - Denies photosensitivity, alopecia, oral/nasal ulcers, lymphadenopathy, chest pain, inflammatory type joint pain, foamy urine, lower extremity edema, muscle weakness, Raynaud's Also denies history of seizure, CVA, psychosis, history of kidney problems, history of cytopenias, history of VTE including PE or DVTs Today - On gabapentin 300mg nightly - Noticing some improvement on the gabapentin, asking if he can increase the dose - complains of left lateral knee pain especially after walking for a few minutes Rheumatologic History: Initial History: The patient presents for evaluation of multiple areas of joint pain. He says this dates back to his high school years. He did have an injury to the left knee that resulted in swelling. He also had a swollen ankle after a fall. These were athletic related activities. The ankle occasionally has a popping sound. The knee is occasionally swollen with weight-bearing activity. He also has other areas of pain including the shoulders, wrists, hands, and the other ankle. None of the other joints seem to show any swelling. He apparently did see a patient care provider when he was in the pediatric age group but I could not locate any note. It was at [facility] but he does not know who the doctor was. He used to take naproxen for his symptoms but recently just been using lidocaine patches and compressions stockings. He also has problems with migraine headaches, asthma and anxiety. 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 Current Rheumatology Medication(s): Gabapentin 300mg nightly [facility] Medical History (Updated 02/11/25 @ 07:35 by Claire Reed CNP) Fatty liver Constipation Abdominal pain Pure hypercholesterolemia GERD (gastroesophageal reflux disease) Anxiety Insomnia Migraine Allergic rhinitis Asthma Surgical History History of esophagogastroduodenoscopy (EGD) Hx of colonoscopy History of ear, nose, and throat (ENT) surgery History of appendectomy Family History Father Asthma Arthritis Diabetes Cirrhosis Mother Fibromyalgia HTN (hypertension) Migraines Heart disease Social History Household Members: Family Both parents involved: Yes Housing: House Alcohol intake: never Patient Tobacco Use Status: Never used Tobacco e-Cigarette/Vaping Use: Never Used Second Hand Smoke Exposure: Yes service: No Current occupational status: employed 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 Cognitive needs: No Hearing needs: No Vision needs: Yes (glasses) Review of Systems Const Details: Review of Systems Constitutional: Denies fever, chills, weight loss ENT: Denies vision changes, eye pain or eye redness, dental caries, dry mouth GI: Denies nausea, vomiting, diarrhea, abdominal pain, change in BM Pulm: Denies SOB, FELIZ, hemoptysis, wheezing Cards: Denies chest pain, palpitations Skin: Denies Raynaud's, rash, nail changes, photosensitivity, ELECTRICAL APPRENTICE: Denies headaches, weakness, paresthesias, recurrent falls MSK: as per HPI All other systems reviewed and are unremarkable except noted above Physical Exam Exam Exam: Exam deferred today Results Reviewed Results Reviewed: Laboratory Tests 12/10/24 04/14/25 10:03 11:30 WBC 4.3 L RBC 4.77 Hgb 14.4 Hct 42.2 Plt Count 237 ESR 2 Sodium 142 Potassium 4.1 Chloride 108 Carbon Dioxide 27 BUN 11 Creatinine 0.90 AST 24 39 H ALT 36 60 H C-Reactive Protein < 0.10 Laboratory Tests 03/17/19 04/14/25 17:27 11:30 Rheumatoid Factor < 13.0 ZEESHAN Screen Negative Cycl Citrul Peptide IgG <16 SS-A/Ro Antibody <1.0 NEG SS-B/La Antibody <1.0 NEG Sm (Bright) Antibody <1.0 NEG SM/SUPERVISOR STAGE CARPENTRY IgG Antibody <1.0 NEG Double Strand DNA Ab 1 Complement C3 161 Complement C4 25 XR Bilateral Knees 03/2025 FINDINGS: RIGHT KNEE: There is no joint effusion. Joint spaces are preserved. There are no osteophytes or erosions. Intercondylar tubercles are mildly peaked. LEFT KNEE: Medial intercondylar tubercles mildly peaked. Joint spaces are preserved. There is no soft tissue calcification. No osteophytes or erosions are evident. IMPRESSION: Right knee: Intercondylar tubercles are peaked, no other degenerative changes. Left knee: Medial intercondylar tubercle is peaked, no other degenerative change. XR Bilateral Shoulders 03/2025 FINDINGS: Right shoulder: AC joint is intact and not degenerated. Glenohumeral joint is not dislocated and not degenerated. No fractures are evident. Left shoulder: AC joint is intact and not degenerated. Glenohumeral joint is intact and unremarkable. No fracture is evident. IMPRESSION: Unremarkable bilateral shoulder x-rays XR Bilateral Wrists 03/2025 FINDINGS: Right wrist: Joint spaces are preserved. No degenerative changes are evident. No erosions are seen Left wrist: Joint spaces are preserved. No degenerative changes are evident. No erosions are seen Impression: Unremarkable bilateral wrist. XR SI Joints 03/2025 FINDINGS: SI joints are symmetrical without sclerosis, narrowing, effusion, or other abnormalities. No bony abnormality is seen. Suture material is visible in the right lower quadrant, cephalad to the right SI joint. IMPRESSION: Unremarkable sacroiliac joints. XR L Spine 03/2025 FINDINGS: There are 5 nonrib-bearing lumbar segments. Vertebral body height and alignment is preserved. There is minimal disc space narrowing in the lower thoracic and upper lumbar spine. No other abnormalities are seen. IMPRESSION: Mild disc space narrowing in the lower thoracic and upper lumbar spine. XR Bilateral Hips 03/2025 FINDINGS: Right hip: Joint spaces are preserved. No degenerative changes are identified. No bony abnormalities are noted. Left hip: Joint spaces are preserved. There are no osteophytes or erosions. Bony elements are unremarkable. Linear chondrocalcinosis is visible in the pubic symphysis joint. IMPRESSION: Unremarkable bilateral hips. XR Bilateral Hand XR 03/2025 FINDINGS: RIGHT HAND: Joint spaces are preserved. Faint calcific density is visible in the first, second and third MCP joints. No osteophytes are noted. No erosions are seen. LEFT HAND: Joint spaces are preserved. No osteophytes are seen. No erosions are identified. Faint chondrocalcinosis is likely present and MCP joints, 1st-5th. IMPRESSION: Faint chondrocalcinosis is evident in multiple MCP joints. Given the patient's age, hyperparathyroidism and hemachromatosis should be considered in addition to calcium pyrophosphate deposition disease. Right hand: Unremarkable otherwise Left hand: Unremarkable otherwise XR Bilateral Elbows 03/2025 FINDINGS: RIGHT ELBOW: Joint spaces are preserved. There are no osteophytes. There are no erosions. Anterior fat pad is visible but not displaced. Posterior fat pad is not visible. No fracture is identified. LEFT ELBOW: Joint spaces are preserved. There are no osteophytes. There are no erosions. Anterior fat pad is visible but not displaced. Posterior fat pad is not visible. No fracture is identified. Impression: Unremarkable bilateral elbows XR Bilateral Ankle 03/2025 FINDINGS: RIGHT ANKLE: Ankle mortise is congruent. Talar dome is intact. No degenerative changes are identified. There is no widening of the syndesmosis. There is no calcaneal spur. LEFT ANKLE: Ankle mortise is congruent. Talar dome is intact. No degenerative changes are identified. There is no widening of the syndesmosis. There is no calcaneal spur. IMPRESSION: Right ankle: Unremarkable right ankle Left ankle: Unremarkable left ankle Assessment & Plan Assessment & Plan (1) Polyarthralgia: Code(s): M25.50 - Pain in unspecified joint Category: Medical Plan: #Polyarthralgia Patient is a 30-year-old male here today for follow up of polyarthralgias. His workup was negative for autoimmune disease such as rheumatoid arthritis and lupus. Sjogren's testing was also negative. His x-rays were overall unremarkable however there was evidence of calcium deposition in his wrists which could indicate early CPPD. Given that he is so young early CPPD can be seen in hereditary diseases such as hemochromatosis, hyperparathyroidism and hypomagnesemia. We will check blood work for this. In the meantime information given to patient about CPPD and gabapentin increased Plan - Labs: Iron profile, HFE gene, PTH, Ferritin, Magnesium - Increase gabapentin to 400mg bid - RTC 6 months (2) Left knee pain: Code(s): M25.562 - Pain in left knee Qualifiers: Chronicity: chronic Qualified Code(s): M25.562 - Pain in left knee; G89.29 - Other chronic pain Plan: #Left knee pain Patient complain of left lateral knee pain especially after walking for a few minutes. This could be indicative of either meniscal injury or ligamentous syndrome we will send to physical therapy if no improvement we will check an MRI Plan - PT referral for left knee pain Plan I spent 30 minutes reviewing the record and labs, discussing the results, discussing the treatment plan, ordering diagnostic work up and documenting in the medical record Orders: Orders Parathyroid Hormone Intact Today E83.110 - Hereditary hemochromatosis Magnesium Today E83.110 - Hereditary hemochromatosis Thyroid Peroxidase Antibodies Today E83.110 - Hereditary hemochromatosis Thyroglobulin Antibodies Today E83.110 - Hereditary hemochromatosis Other Ref Test - Misc Today E83.110 - Hereditary hemochromatosis Thyroid Stimulating Hormone Today E83.110 - Hereditary hemochromatosis IRON PROFILE Today E83.110 - Hereditary hemochromatosis Ferritin Today E83.110 - Hereditary hemochromatosis PT Evaluation and Treatment Today M25.562 - Pain in left knee Medications: Changed From gabapentin 300 mg PO BEDTIME 90 caps 1RF M25.50 - Pain in unspecified joint To gabapentin 400 mg PO BID 180 caps 1RF 90 days M25.50 - Pain in unspecified joint Coding Level of Care Code Est Pt Level 4 (31819) Complex EM visit Add On G2211 Diagnoses Polyarthralgia M25.50 Chronic pain of left knee M25.562; G89.29 Chronicity: chronic
[2025-05-04 13:08] VITALS: BP 122/80; PULSE 86; O2SAT 98; BMI 25.7
== END 2025-05-04 13:37 | disposition home or self-care (01) ==
LOC: HO.RHES 13:02
PROVIDERS: PCP Internal Medicine; Visit Provider Student in an Organized Health Care Education/Training Program
DX: M25.50 Pain in unspecified joint (principal); M25.562 Pain in left knee; G89.29 Other chronic pain
CPT/HCPCS: 99214

== ENCOUNTER 2025-05-12 12:14 | Outpatient (REF) | payer OTHER, SELFPAY ==
[2025-05-12 12:55] LABS: MANUAL DIFF FLAG NO
[2025-05-12 13:35] LABS: Hematocrit 43.3 % (42.0-52.0); Hemoglobin 15.0 g/dl (14.0-18.0); Imm Gran Abs Auto 0.01 X10*3/uL (0.00-0.03); Imm Gran Pct Auto 0.2 % (0.0-0.4); Lymphocytes Absolute Auto 1.8 X10*3/uL (1.2-4.9); Mean Corpuscular HGB Conc 34.6 g/dl (31.0-36.0); Mean Corpuscular Hemoglobin 30.1 pg (27.0-33.0); Mean Corpuscular Volume 86.8 fL (80.0-98.0); NRBC Abs Auto 0.000 X10*3/uL (0.0-0.012); NRBC Pct Auto 0.0 /100WBC (0.0-0.2); Platelet Count 231 X10*3/uL (160-400); Red Blood Count 4.99 X10*6/uL (4.60-5.80); White Blood Count 5.4 X10*3/uL (4.8-10.8)
[2025-05-12 14:07] LABS: Appearance Urine Clear; Glucose Urine UA Negative (Negative); PH 6.5 (5.0-9.0); Specific Gravity - Urine 1.020 (1.005-1.025)
[2025-05-12 14:17] LABS: Parathyroid Hormone Intact 21.9 pg/mL (8.7-77.1)
[2025-05-12 15:25] LABS: Alanine Aminotransferase 44 U/L (0-40); Albumin Level 5.2 g/dL (3.5-5.0); Anion Gap 14 (12-20); Aspartate Amino Transferase 30 U/L (5-37); Blood Urea Nitrogen 14 mg/dL (9-16); Calcium 9.9 mg/dL (8.4-10.2); Carbon Dioxide 26 mmol/L (22-29); Chloride 107 mmol/L (96-108); Cholesterol 239 mg/dL (<200); Estimated Glomerular Filt Rate > 60; HDL Cholesterol 49 mg/dL (>40); Iron 103 mcg/dL (45-160); Magnesium 2.4 mg/dL (1.6-2.6); Percent Iron Saturation 36 % (15-50); Potassium 3.7 mmol/L (3.3-5.1); Sodium 143 mmol/L (135-145); Total Iron Binding Capacity 283 mcg/dL (228-428); Total Protein 8.0 g/dL (6.5-8.0); Triglycerides 113 mg/dL (<150); Unsaturated Iron Binding 180 ug/dL
--- OUTSIDE RECORDS SUMMARY | 2025-05-12 15:27 | XMS_ITS | Clinical Summary ---
Author Organization [address] [place] [address] [address] [place] [address] Phone Care Team Providers Care Fly Fishing Guide Name Role Phone Jovan Mac MD Primary [...] to 49 Years) (2 of 2 - PPSV23, PCV20, or PCV21) 2003 01/21/2001 HPV Vaccines (3 - Male 3-dose series) 07/18/2014 04/25/2014, 11/08/2013 HIV Screening 06/29/2022 Hepatitis C Screening 06/29/2022 Social Influencers of Health Screening 06/29/2022 Depression Screening 07/28/2024 COVID-19 Vaccine ( season) 2025 Influenza Vaccine (#1) 2025 , 07/09/2021, 06/18/2019, Additional history exists DTaP,Tdap,and Td Vaccines (9 - Td or Tdap) 11/24/2028 11/24/2018, 08/23/2014, 11/03/2009, Additional history exists RSV Immunization Adult Patients (1 - 1-dose 75+ series) 01/02/2072 Hepatitis B Vaccines Completed 1997, 1997, 1997 [...] topic Insurance MEDICAID - [place] Care Teams Fly Fishing Guide Relationship Specialty Start Date End Date Jovan Mac MD [address] [place] [address] Perla [facility] JEAN Dean PCP - General Internal Medicine 02/08/19
--- OUTSIDE RECORDS SUMMARY | 2025-05-12 15:27 | XMS_ITS | Clinical Summary ---
Author Organization [employer] Address [address] [facility] [address] [place] [address] Care Team Providers Care Home Care Provider Name Role Phone Unavailable Primary Care Provider [...] Most Recently Relevant to Health Maintenance Insurance [facility] MEDICAID STAND ADULT
[2025-05-12 15:45] LABS: Ferritin 112 ng/mL (20-250)
[2025-05-12 15:48] LABS: Alkaline Phosphatase 92 U/L (39-117)
[2025-05-13 17:48] LABS: Thyroglobulin Antibodies <1 IU/mL (< or = 1)
== END 2025-05-12 12:15 | disposition home or self-care (01) ==
LOC: HO.LAB 12:14
PROVIDERS: Absent Provider Student in an Organized Health Care Education/Training Program; PCP Internal Medicine; Visit Provider Internal Medicine
DX: Z00.00 Encounter for general adult medical examination without abnormal findings (principal); E78.00 Pure hypercholesterolemia, unspecified; E83.110 Hereditary hemochromatosis; D64.9 Anemia, unspecified; R30.0 Dysuria
CPT/HCPCS: 36415; 80053; 80061; 81003; 81256; 82306; 82728; 83540; 83735; 83970; 84443; 85025; 86376; 86800

== ENCOUNTER 2025-05-18 16:49 | Outpatient (AMB) | payer OTHER, SELFPAY ==
[2025-05-18 16:53] VITALS: BP 110/70; PULSE 96; O2SAT 97; BMI 25.8
--- NOTE | 2025-05-18 16:53 | MHC.PC.OV ---
Vital Signs 05/18/25 16:53 Height 5 ft 11 in Weight 185 lb BMI 25.8 BP 110/70 Blood Pressure Location Lt brachial Position Sitting Pulse 96 Pulse Source Pulse Oximeter Pulse Oximetry (%) 97 Oxygen Delivery Method Room Air Intake Visit Reasons: annual exam Roll Capper Required: No Accompanied by: Self / Same As Patient Allergies methylprednisolone (Methylprednisolone) Allergy (Unknown, Verified 05/18/25 17:09) UNKNOWN Penicillins (PENICILLINS) Allergy (Unknown, Verified 05/18/25 17:09) RASH amitriptyline Adverse Reaction (Unknown, Verified 05/18/25 17:09) increased headaches metoclopramide (From REGLAN) Adverse Reaction (Unknown, Verified 05/18/25 17:09) RASH trazodone Adverse Reaction (Unknown, Verified 05/18/25 17:09) increased headaches Medication List - Last Reconciled 05/18/25 by Jovan Mac MD cetirizine 10 mg PO DAILY PRN docusate sodium 200 mg (2 x 100 mg) PO BEDTIME PRN fluoxetine 10 mg PO DAILY fluticasone propionate 110 mcg/actuation (Flovent HFA) 1 puff PO BID gabapentin 400 mg PO BID 90 days lorazepam 1 mg PO DAILY PRN 14 days methylcellulose (laxative) (Citrucel) 500 mg PO TID montelukast 10 mg PO DAILY omeprazole 40 mg PO DAILY ondansetron 4 mg PO BID-TID PRN 30 days polyethylene glycol 3350 (Miralax) 17 grams PO DAILY 30 days sumatriptan succinate 50 mg PO PRN Ventolin HFA 90 mcg/actuation (albuterol sulfate) 2 puffs inhalation Q6H PRN NS zolpidem 10 mg PO BEDTIME PRN 30 days Tobacco use date assessed: 05/18/25 Dental Screening Dental Screen Date: 05/18/25 Did you have a dental visit in the last 12 months?: Yes Did you have a dental problem in the last 6 months where you did not have access to dental care?: No Was dental information given to patient?: Patient has dentist HPI annual exam HPI Details Patient comes in today for his annual physical examination States that he feels okay He denies any headaches or dizziness Denies any chest pains, no SOB No nausea/vomiting, no abdominal pain No change in bowel habits noted He denies any acute urinary symptoms He had his follow up labs done last week - to discuss his results [facility] Medical History (Updated 05/23/25 @ 15:09 by Jovan Mac MD) Vitamin D deficiency Fatty liver Constipation Abdominal pain Pure hypercholesterolemia GERD (gastroesophageal reflux disease) Anxiety Insomnia Migraine Allergic rhinitis Asthma Surgical History History of esophagogastroduodenoscopy (EGD) Hx of colonoscopy History of ear, nose, and throat (ENT) surgery History of appendectomy Family History Father Asthma Arthritis Diabetes Cirrhosis Mother Fibromyalgia HTN (hypertension) Migraines Heart disease Social History Household Members: Family Both parents involved: Yes Housing: House Alcohol intake: never Patient Tobacco Use Status: Never used Tobacco e-Cigarette/Vaping Use: Never Used Second Hand Smoke Exposure: Yes service: No Current occupational status: employed 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 1. Little interest or pleasure in doing things: not at all 2. Feeling down, depressed, or hopeless: not at all 3. Trouble falling or staying asleep, or sleeping too much: several days 4. Feeling tired or having little energy: several days 5. Poor appetite or overeating: not at all 6. Feeling bad about yourself - or that you are a failure or have let yourself or your family down: not at all 7. Trouble concentrating on things, such as reading the newspaper or watching television: not at all 8. Moving or speaking so slowly that other people could have noticed. Or the opposite - being so fidgety or restless that you have been moving around a lot more than usual: not at all 9. Thoughts that you would be better off or of hurting yourself in some way: not at all Total score: 2 Depression Screening Interpretation: Negative Depression Screening Done: Yes 21106 - PHQ-9 Billing: Yes Source: Developed by Drs. Javier Mueller, Bridgette Wang, Herman Lizarraga and colleagues, with an educational hiram from [employer]. Thrive Questionnaire Date Thrive assessed: 05/18/25 I am a: Patient What is your living situation today?: I have a steady place to live Within the past 12 months, did the food you bought not last and you didn't have the money to get more?: Never true Within the past 12 months, did you worry whether your food would run out before you got money to buy more?: Never true Do you have trouble paying for medicines?: I choose not to answer this question Do you have trouble getting transportation to medical appointments?: No Do you have trouble paying your heating and electricity bill?: No Do you have trouble taking care of your child, family member or friend?: No Do you have trouble with day-to-day activities such as bathing, preparing meals, shopping, managing finances, etc.?: No Are you currently unemployed and looking for a job?: No Are you interested in more education?: No Please select the resources that you would like help with: None Currently or been in a relationship where the following occur: I choose not to answer THRIVE Score: 0 AUDIT C Alcohol Use Questionnaire (AUDIT-C) 1. How often do you have a drink containing alcohol?: Never 3. How often do you have six or more drinks on one occasion?: Never Total Score: 0 Score Reviewed/Action Taken: Yes TESS-7 AMB Questionnaire TESS-7 Date TESS - 7 assessed: 11/22/24 Source: Developed by Drs. Javier Mueller, Herman Poon and colleagues, with an educational hiram from [employer]. Review of Systems Const Denies chills, Denies fatigue, Denies fever(s), Denies headache(s), Denies malaise and Denies weakness Eyes Denies blurry vision, Denies change in vision, Denies irritation and Denies itchy eyes ENT Denies dysphagia, Denies dizziness, Denies otalgia, Denies headache(s), Denies nasal congestion, Denies neck pain, Denies odynophagia and Denies sore throat Card Denies rapid heart rate, Denies irregular heart rhythm, Denies palpitations and Denies dyspnea Resp Denies chest congestion, Denies cough, Denies dyspnea and Denies wheezing GI Denies abdominal pain, Denies bloating, Reports constipation (at times), Denies dysphagia, Reports heartburn (on and off but better on Rx), Denies diarrhea, Denies nausea, Denies odynophagia and Denies vomiting Denies hematuria, Denies difficulty urinating, Denies dysuria, Denies urinary frequency and Denies urinary urgency Musc Denies back pain, Denies arthralgias, Denies joint swelling, Denies muscle weakness and Denies neck pain Skin/Breast Denies change in pigmentation, Denies lesions, Denies rash and Denies unusual bruising Neuro Denies dizziness, Denies headache(s), Denies paresthesias and Denies weakness Endo Denies fatigue and Denies palpitations Aller/Immun Denies itchy eyes and Denies wheezing Physical exam (Primary Care) Vital Signs: Last Vital Signs Pulse 96 05/18/25 16:53 BP 110/70 05/18/25 16:53 Pulse Ox 97 05/18/25 16:53 Oxygen Delivery Method Room Air 05/18/25 16:53 BMI result Body Mass Index 25.8 Tobacco/Smoking Status: Tobacco use Status Tobacco use date assessed 05/18/25 05/18/25 16:58 Patient Tobacco Use Status Never used Tobacco 05/18/25 16:58 e-Cigarette/Vaping Use Never Used 05/18/25 16:58 Depression Screening Interpretation: Negative Thrive Assessment: Date of Thrive Assessment Date Thrive assessed 05/18/25 05/18/25 16:58 Currently or been in a relationship where the following occur: I choose not to answer Const General: no acute distress, alert and awake Orientation/consciousness: patient oriented x3 HENMT Head: Yes normocephalic and Yes atraumatic Ears: external ears normal, TM's normal bilaterally and EAC's normal General nose exam: No nasal discharge present Face and sinus: Yes normal facial exam and Yes sinuses nontender Teeth and gingiva: dentition normal Throat: Yes posterior oropharynx normal and Yes tonsils normal (no TP congestion) Eyes Eyelids: Yes eyelids normal Conjunctivae: conjunctivae normal Pupils: Equal, round and reactive pupils present EOM: EOMs intact bilaterally Neck Neck: Yes no lymphadenopathy and Yes supple Thyroid: Thyroid normal Resp Auscultation: clear to auscultation bilaterally, no rales and no wheezes Cardio Rate: regular rate Rhythm: regular rhythm Heart sounds: no murmurs GI Palpation (GI): Soft to palpation, nontender and No hepatosplenomegaly present Auscultation: normal bowel sounds General: Yes no CVA tenderness Back/Spine/Pelvis Back: no CVA tenderness Thoracic/Lumbar Spine: thoracic and lumbar spine normal to inspection Skin Lesions: no lesions Rashes: no rashes Neuro General: patient oriented x3, moves all extremities, no focal motor deficits and CN's II-XI intact bilaterally Cranial nerves: Yes Equal, round and reactive pupils present Cognition (Neuro): normal cognition Gait exam (Neuro): Normal gait present Extrem General: Yes no clubbing, cyanosis or edema Results Reviewed Results Reviewed: Laboratory Tests 05/12/25 05/12/25 12:53 Unknown WBC 5.4 Hgb 15.0 Hct 43.3 Plt Count 231 Sodium 143 Potassium 3.7 Creatinine 0.85 Estimated GFR > 60 Fasting Glucose 89 Calcium 9.9 Magnesium 2.4 Iron 103 TIBC 283 % Saturation 36 Ferritin 112 Total Bilirubin 0.7 AST 30 ALT 44 H Triglycerides 113 Cholesterol 239 H LDL Cholesterol, Calc 168 H HDL Cholesterol 49 25-OH Vitamin D Total 26.4 L TSH 1.83 PTH Intact 21.9 Ur Specific [place] 1.020 Urine Protein Negative Urine Glucose (UA) Negative Urine Blood Negative Urine Nitrite Negative Ur Leukocyte Esterase Negative Coding Level of Care Code Est Pt Prev Care 18-39y(90515) Diagnoses Annual physical exam Z00.00 Pure hypercholesterolemia E78.00 Palpitations R00.2 Mild asthma without complication, unspecified whether persistent J45.909 Asthma complication type: uncomplicated Asthma persistence: unspecified Asthma severity: mild Migraine without status migrainosus, not intractable, unspecified migraine type G43.909 Migraine type: unspecified Status migrainosus presence: without status migrainosus Intractability: not intractable Seasonal allergic rhinitis due to pollen J30.1 Allergic rhinitis seasonality: seasonal Allergic rhinitis trigger: pollen Gastroesophageal reflux disease without esophagitis K21.9 Esophagitis presence: without esophagitis Vitamin D deficiency E55.9 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 M46.1 Primary osteoarthritis of right hip M16.11 Osteoarthritis type: primary 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 Osteoarthritis type: primary Asymptomatic microscopic hematuria R31.21 Insomnia, unspecified type G47.00 Insomnia type: unspecified Anxiety F41.9 Additional Codes PHQ-9 - 58350 - PHQ-9 Billing: Yes ([id number]) Assessment & Plan Assessment & Plan (1) Annual physical exam: Code(s): Z00.00 - Encounter for general adult medical examination without abnormal findings Category: Medical Plan: Results of his labs done last week reviewed and discussed with patient (2) Pure hypercholesterolemia: Code(s): E78.00 - Pure hypercholesterolemia, unspecified Category: Medical Plan: Patient is advised that his cholesterol levels were elevated on his recent labs and have been high for a couple of years now His cholesterol levels were normal back in 2021, with his LDL cholesterol in the 120 mg/dL range, so this likely shows that his high cholesterol levels recently is mostly due to his diet as his cholesterol levels would never be normal without any medications or intervention if his high cholesterol is due to genetics Reinforced low-cholesterol diet - have provided patient today with a low-cholesterol diet sheet from the office for him to go over and review Will have patient recheck his labs and fasting lipids in 6 months for follow-up (3) Palpitations: Code(s): R00.2 - Palpitations Category: Medical Plan: Patient previously could not complete his 30 days cardiac event monitor as he developed some allergic reaction to the adhesive used for the monitoring device He underwent cardiac evaluation again with echocardiogram and a 7-days Holter monitor, both of which came back normal States that his symptoms have subsided a lot recently as he has cut down significantly on his intake of caffeinated beverages He's had no further chest pains and states that his palpitations and other cardiac symptoms are now hardly occurring He was seen by cardiology for follow up a few months ago and was reassured of his normal work ups and advised to continue avoiding any caffeinated drinks as much as possible and to just follow up with cardiology on an as-needed basis (4) Asthma: Code(s): J45.909 - Unspecified asthma, uncomplicated Category: Medical Qualifiers: Asthma complication type: uncomplicated Asthma persistence: unspecified Asthma severity: mild Qualified Code(s): J45.909 - Unspecified asthma, uncomplicated Plan: Controlled - continue Flovent HFA 110 mcg 1 inhalation BID, Montelukast 10 mg QD and Albuterol HFA 2 inhalations every 6 hours as needed (5) Migraine: Code(s): G43.909 - Migraine, unspecified, not intractable, without status migrainosus Category: Medical Qualifiers: Migraine type: unspecified Status migrainosus presence: without status migrainosus Intractability: not intractable Qualified Code(s): G43.909 - Migraine, unspecified, not intractable, without status migrainosus Plan: Reinforced avoidance of any potential migraine triggers Continue Sumatriptan 50 mg PRN He used to take Topiramate 50 mg Q HS for headaches prophylaxis but has not been taking this lately with no significant increase in his headaches / symptoms Follow up with neurology as scheduled (6) Allergic rhinitis: Code(s): J30.9 - Allergic rhinitis, unspecified Category: Medical Qualifiers: Allergic rhinitis seasonality: seasonal Allergic rhinitis trigger: pollen Qualified Code(s): J30.1 - Allergic rhinitis due to pollen Plan: Continue Fluticasone 50 mcg nasal spray QD, Montelukast 10 mg QD and Cetirizine 10 mg QD PRN (7) GERD (gastroesophageal reflux disease): Comment: 04/17/23 EGD-esophagitis Code(s): K21.9 - Gastro-esophageal reflux disease without esophagitis Category: Medical Qualifiers: Esophagitis presence: without esophagitis Qualified Code(s): K21.9 - Gastro-esophageal reflux disease without esophagitis Plan: Dietary restrictions reinforced Continue Citrucel 500 mg TID Continue Omeprazole 20 mg QD Follow up with GI as scheduled (8) Vitamin D deficiency: Code(s): E55.9 - Vitamin D deficiency, unspecified Category: Medical Plan: He is advised that his Vitamin D level is low on his recent labs Will start him on Vitamin D3 2000 units QD (9) 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: Code(s): M46.1 - Sacroiliitis, not elsewhere classified Category: Medical Plan: Lower back x-rays done back in May 2024 revealed (+) minimal degenerative changes in the bilateral sacroiliac joints and facet arthritis in the partially imaged lower spine Patient states that his low back pain and joint (hip) pains have significantly improved with physical therapy (10) Osteoarthritis of right hip: Code(s): M16.11 - Unilateral primary osteoarthritis, right hip Category: Medical Qualifiers: Osteoarthritis type: primary Qualified Code(s): M16.11 - Unilateral primary osteoarthritis, right hip Plan: Right hip x-rays done back in May 2024 revealed (+) minimal narrowing along the superolateral aspect of the RIGHT hip joint Patient states that his right hip has not been bothering him too much lately He is advised that physical therapy is also an option if his hip starts to bother him again (11) Osteoarthritis of hand, right: Code(s): M19.041 - Primary osteoarthritis, right hand Category: Medical Qualifiers: Osteoarthritis type: primary Qualified Code(s): M19.041 - Primary osteoarthritis, right hand Plan: X-rays of the right hand done in May 2024 also revealed (+) mild degenerative changes at the first carpometacarpal joint Can also refer him to PT/OT if he starts experiencing increased right hand symptoms (12) Asymptomatic microscopic hematuria: Code(s): R31.21 - Asymptomatic microscopic hematuria Category: Medical Plan: Patient is currently asymptomatic Will continue to monitor this regularly If this persists, will consider renal US for further evaluation (13) Insomnia: Code(s): G47.00 - Insomnia, unspecified Category: Medical Qualifiers: Insomnia type: unspecified Qualified Code(s): G47.00 - Insomnia, unspecified Plan: Sleep hygiene reinforced Continue Zolpidem 10 mg Q HS PRN (14) Anxiety: Code(s): F41.9 - Anxiety disorder, unspecified Category: Medical Plan: Continue Bupropion XL 150 mg Q AM and Lorazepam 1 mg QD PRN Plan Follow up in 6 months Orders: Orders TSH reflex Free T4 6 Months E78.00 - Pure hypercholesterolemia, unspecified UA CC w/rflx Micro + Cult 6 Months R30.0 - Dysuria Vitamin D 25-OH Total 6 Months E55.9 - Vitamin D deficiency, unspecified Comprehensive [place]. Panel Fast 6 Months E78.00 - Pure hypercholesterolemia, unspecified Lipid Panel 6 Months E78.00 - Pure hypercholesterolemia, unspecified Complete Blood Count Auto Diff 6 Months D64.9 - Anemia, unspecified Medications: New cholecalciferol (vitamin D3) 50 mcg PO DAILY 90 caps 3RF 90 days E55.9 - Vitamin D deficiency, unspecified
--- OUTSIDE RECORDS SUMMARY | 2025-05-18 22:12 | XMS_ITS | Clinical Summary ---
Author Organization [employer] Address [address] [place] [address] Care Team Providers Care Still Operator Gin Name Role Phone Unavailable Primary Care Provider [...] Most Recently Relevant to Health Maintenance Insurance [facility] MEDICAID STAND ADULT
--- OUTSIDE RECORDS SUMMARY | 2025-05-18 22:12 | XMS_ITS | Clinical Summary ---
Author Organization [address] [place] [address] [address] [place] [address] Phone Care Team Providers Care [employer] Business [employer] Developer Name Role Phone Jovan Mac MD Primary Care Provider [phone] Allergies Active Allergy Reactions Criticality Noted Date Comments Solu-Medrol Mix-O-Vial 09/06/2024 Medications silver sulfADIAZINE (Silvadene) 1 % cream Apply topically 1 (one) time each day. 50 g 5 09/06/19 26 Active Social History Tobacco Use [...] topic Insurance MEDICAID - [place] Care Teams [employer] Relationship Specialty Start Date End Date Jovan Mac MD [address] [place] [address] Per[facility] JEAN Dean PCP - General Internal Medicine 02/08/19
== END 2025-05-18 17:19 | disposition home or self-care (01) ==
PROVIDERS: PCP Internal Medicine; Visit Provider Internal Medicine
DX: Z00.00 Encounter for general adult medical examination without abnormal findings (principal); E78.00 Pure hypercholesterolemia, unspecified; R00.2 Palpitations; J45.909 Unspecified asthma, uncomplicated; G43.909 Migraine, unspecified, not intractable, without status migrainosus; J30.1 Allergic rhinitis due to pollen; K21.9 Gastro-esophageal reflux disease without esophagitis; E55.9 Vitamin D deficiency, unspecified; M46.1 Sacroiliitis, not elsewhere classified; M16.11 Unilateral primary osteoarthritis, right hip; M19.041 Primary osteoarthritis, right hand; R31.21 Asymptomatic microscopic hematuria; G47.00 Insomnia, unspecified; F41.9 Anxiety disorder, unspecified

== ENCOUNTER → 2025-05-18 16:49 | Outpatient (BNVA) | payer OTHER, SELFPAY | PROVIDERS: PCP Internal Medicine; Visit Provider Internal Medicine | DX: Z00.00 Encounter for general adult medical examination without abnormal findings (principal); E78.00 Pure hypercholesterolemia, unspecified; R00.2 Palpitations; G43.909 Migraine, unspecified, not intractable, without status migrainosus; J30.1 Allergic rhinitis due to pollen; K21.9 Gastro-esophageal reflux disease without esophagitis; E55.9 Vitamin D deficiency, unspecified; M46.1 Sacroiliitis, not elsewhere classified; M16.11 Unilateral primary osteoarthritis, right hip; M19.041 Primary osteoarthritis, right hand; R31.21 Asymptomatic microscopic hematuria; G47.00 Insomnia, unspecified; F41.9 Anxiety disorder, unspecified; R30.0 Dysuria; D64.9 Anemia, unspecified | CPT/HCPCS: 96127; 99395 ==

== ENCOUNTER 2025-05-19 08:40 | Outpatient (AMB) | payer OTHER, SELFPAY ==
--- NOTE | 2025-05-19 08:46 | A.OFFVIS_ITS ---
Vital Signs 05/19/25 08:50 Height 5 ft 11 in Weight 185 lb BMI 25.8 BP 128/64 Blood Pressure Location Rt brachial Position Sitting Pulse 78 Pulse Source Pulse Oximeter Pulse Oximetry (%) 98 Oxygen Delivery Method Room Air Intake Visit Reasons: 3 MO F/U Intake Note: Patient follow up for chronic constipation and Barium swallow results Patient cc: Pt denies any new GI concerns or sx at this time. Pt does report having occasional acid reflux but states that it is self inflicted per not always remembering to take his PPI. He confirms, when he does take it, his sx are well managed. Banding Machine Operator Required: No Accompanied by: Self / Same As Patient Allergies methylprednisolone (Methylprednisolone) Allergy (Unknown, Verified 05/18/25 17:09) UNKNOWN Penicillins (PENICILLINS) Allergy (Unknown, Verified 05/18/25 17:09) RASH amitriptyline Adverse Reaction (Unknown, Verified 05/18/25 17:09) increased headaches metoclopramide (From REGLAN) Adverse Reaction (Unknown, Verified 05/18/25 17:09) RASH trazodone Adverse Reaction (Unknown, Verified 05/18/25 17:09) increased headaches HPI HPI 3 MO F/U: Details: Patient is a 29-year-old male with PMH of HLD, anxiety, insomnia, migraines, asthma and GERD. FU for GERD, steatosis, constipation. Review imaging (barium swallow), LFT trends, and address recent lab. Pt continues to experience reflux sxs, but reports marked improvement with omeprazole 40 mg and avoidance of spicy/irritant foods; sxs are now minimal. Pt initiated gabapentin recently, correlating with increased constipation and inconsistent use of stool softeners and Miralax). Fiber supplementation ongoing; pt consuming fruits regularly and maintaining hydration, though continues some soda intake. One episode of minor rectal bleeding ~1.5 wk ago, attributed to straining; no recurrence or associated pain. No new abdominal pain, NV, or fevers. Recent urgent care visit for non-GI respiratory issue. 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 Persistent mild LFT elevation noted on labs. No current plans for cholesterol rx; lifestyle modifications ongoing. [facility] Medical History Fatty liver Constipation Abdominal pain Pure hypercholesterolemia GERD (gastroesophageal reflux disease) Anxiety Insomnia Migraine Allergic rhinitis Asthma Surgical History History of esophagogastroduodenoscopy (EGD) Hx of colonoscopy History of ear, nose, and throat (ENT) surgery History of appendectomy Family History Father Asthma Arthritis Diabetes Cirrhosis Mother Fibromyalgia HTN (hypertension) Migraines Heart disease Social History Household Members: Family Both parents involved: Yes Housing: House Alcohol intake: never Patient Tobacco Use Status: Never used Tobacco e-Cigarette/Vaping Use: Never Used Second Hand Smoke Exposure: Yes service: No Current occupational status: employed 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 Cognitive needs: No Hearing needs: No Vision needs: Yes (glasses) Review of Systems Const Reports as per HPI ENT Reports as per HPI Card Reports as per HPI Resp Reports as per HPI GI Reports as per HPI Reports as per HPI Physical Exam Vital Signs: Last Vital Signs Pulse 78 05/19/25 08:50 BP 128/64 05/19/25 08:50 Pulse Ox 98 05/19/25 08:50 Oxygen Delivery Method Room Air 05/19/25 08:50 BMI result Body Mass Index 25.8 Const General: healthy appearing, no acute distress and well developed Nutritional Appearance: average body habitus Orientation/consciousness: patient oriented x3 HEENT Head: Yes normal to inspection, Yes normocephalic and Yes atraumatic Face and sinus: Yes normal facial exam Eyes General: appearance normal, both eyes and all related structures Neck Neck: Yes normal visual inspection Resp Effort & Inspection: normal respiratory effort, able to speak in complete sentences, no tracheal deviation and symmetric chest movement Cardio Jugular venous distension: no JVD Neuro General: patient oriented x3 Gait exam (Neuro): Normal gait present Psych Appearance: grossly normal Mental Status: mental status grossly normal Speech and movement: Normal speech and movement present Affect: normal affect Attitude: cooperative Thought process: Normal thought process present Thought content: Normal thought content present Insight: Good insight present (Psych) Judgement: Good judgement present (Psych) Results Reviewed Results Reviewed: Date of Service: 05/04/25 Procedure(s): FL barium swallow with air Accession Number(s): [id number] cc: Jovan Mac MD; Claire Reed CNP~ Reason for Exam: K21.9 - Gastro-esophageal reflux disease without esophagitis EXAMINATION: XR FLUOROSCOPY BARIUM SWALLOW CLINICAL INFORMATION: GERD type symptoms. Prior endoscopy one year ago showed inflammation of the esophagus. COMPARISON: 09/15/2018. TECHNIQUE: Fluoroscopic air contrast barium swallow examination was performed utilizing standard techniques with thin and thick barium and effervescent granules. Numerous spot images were obtained. Several fluoroscopic image hold cine sequences were also obtained. FINDINGS: BARIUM SWALLOW: Lateral cine images of the oropharynx and hypopharynx demonstrate normal swallow mechanism with normal epiglottic inversion and soft palate elevation. No laryngeal penetration, glottic or subglottic aspiration identified. No nasopharyngeal reflux present. Hypopharyngeal structures appear normal without evidence of mass or diverticulum. There was no significant cricopharyngeal achalasia. Dual and single contrast images of the esophagus demonstrate normal caliber, contour, and mucosal pattern. No evidence of stricture, mass, or ulcerations identified. Esophageal peristalsis was essentially normal. No evidence of hiatus hernia identified. Gastroesophageal reflux was identified to the mid esophageal level. Dual contrast and single contrast images of the stomach demonstrated normal contour and mucosal pattern without evidence of mass, ulceration, or other abnormality. Normal gastric rugal fold pattern. Contrast freely passed into the gastric antrum and duodenal bulb without delay. FLUOROSCOPY TIME: 2 minutes, 27 seconds Number of Spot Images:10 Number of cines obtained: 10 DOSE AREA PRODUCT: 2573 uGy-m2 (microgray-meter squared) FL/FL barium swallow with air IMPRESSION: 1. Gastroesophageal reflux identified to the mid esophageal level. 2. Otherwise, normal barium swallow. Date of Service: 12/29/24 Procedure(s): US abdomen complete cc: Jovan Mac MD; Claire Reed CNP~ CLIICAL HISTORY: R10.9 - Unspecified abdominal pain --- Additional Notes or Special Instructions: pain at RUQ and umbilical region US abdomen complete Comparison: None Findings: The visualized pancreas is normal. The aorta and inferior vena cava are normal caliber. There is increased hepatic echogenicity suggestive of steatosis. There is no intrahepatic bile duct dilatation. The common duct is 1.7 mm in diameter. The gallbladder is normal. There is no sonographic Castillo sign. The main portal vein is antegrade. The right kidney is 11.9 cm in length. The left kidney is 11.4 cm in length. The spleen is normal. No ascites. IMPRESSION: 1. Increased hepatic echogenicity suggesting steatosis. This document has been electronically signed by: Rosendo Martinez MD on 12/29/2024 13:02:53 Assessment & Plan Assessment & Plan (1) GERD (gastroesophageal reflux disease): Comment: 04/17/23 EGD-esophagitis Code(s): K21.9 - Gastro-esophageal reflux disease without esophagitis Category: Medical Qualifiers: Esophagitis presence: without esophagitis Qualified Code(s): K21.9 - Gastro-esophageal reflux disease without esophagitis Plan: Stable & improved w/ omeprazole 40 mg QD, minimal sxs. Barium swallow confirmatory. Additional Testing: H pylori breath test per patient request Medications: -hold omeprazole x2 weeks -famotidine script for use during 2 week PPI hold. -resume omeprazole 40 mg QD after testing. No side effects reported. Lifestyle: Continue avoidance of triggers, elevate HOB prn, small/frequent meals as advised. Referrals: None. F/U: 3 mo?symptom reassess and med review. (2) Chronic constipation: Code(s): K59.09 - Other constipation Category: Medical Plan: Slightly worsened post-gabapentin; adherence to stool softener low. Fiber intake improved; mild rectal bleed one-time after straining. Additional Testing: Fecal occult blood (FOBT) ordered?r/o occult GI bleed given single hematochezia; pt provided kit. Medications: Reinforce regular Miralax; d/c or titrate gabapentin prn/collaborate w/ prescribing provider as appropriate. Lifestyle: Increase fluid (water as main hydration), dietary fiber fruits/vegs, toileting habits (avoid straining/alejo). Referrals: None unless persistent bleeding/sx develop. F/U: 3 mo, or sooner if recurrent hematochezia/constipation worsens (3) Fatty liver: Code(s): K76.0 - Fatty (change of) liver, not elsewhere classified Category: Medical Plan: Mild LFT elevation persists; US reassuring (steatosis only). No evidence of progression. Additional Testing: Pending?Hep C serology; autoimmune panel ordered ( less likely but obtain need for definitive rule out) Medications: None specific. Continue monitoring. Lifestyle: Reinforce weight mgmt, balanced (whole) diet, decrease processed/fatty foods, increase activity. Referrals: None currently. Monitor LFTs. F/U: 3 mo w/ repeat LFT, lipid panel. (4) Pure hypercholesterolemia: Code(s): E78.00 - Pure hypercholesterolemia, unspecified Category: Medical Plan: No sx, not on meds, genetic aspect identified in relatives; pt aware. Additional Testing: Cholesterol/lipid panel?already done; repeat in 3 mo. Medications: None currently. Lifestyle: Focus on balanced diet, weight control, increase activity. Referrals: Pt to discuss genetic lipid testing w/ PCP/cardiology. F/U: 3 mo w/ routine labs. Plan Advised follow up with Rheumatology for genetic counseling. Follow-up: -2 weeks for H. pylori with MA/RN -Provider follow up in 3 months or sooner as needed Time: I spent a total of 30 minutes on the date of encounter which includes: Preparing to see the patient (reviewed previous documentation, test results and medical history) Performing a medically appropriate exam and/or evaluation Ordering medications, tests, and procedures Documenting clinical information in the health record Orders: Orders AMB Fecal Immunochemical Test Today K92.1 - Melena Mitochondrial Antibody Today K76.0 - Fatty (change of) liver, not elsewhere classified Smooth Muscle Antibody Today K76.0 - Fatty (change of) liver, not elsewhere classified Hepatitis A,B,C Profile Today K76.0 - Fatty (change of) liver, not elsewhere classified ZEESHAN Reflex Titer and Pattern Today K76.0 - Fatty (change of) liver, not elsewhere classified Comprehensive [place]. Panel Fast 3 Months K76.0 - Fatty (change of) liver, not elsewhere classified Prothrombin Time INR Today K76.0 - Fatty (change of) liver, not elsewhere classified Lipase Today K76.0 - Fatty (change of) liver, not elsewhere classified Lipid Panel 3 Months E78.00 - Pure hypercholesterolemia, unspecified, K76.0 - Fatty (change of) liver, not elsewhere classified H Pylori Breath Test Today K21.9 - Gastro-esophageal reflux disease without esophagitis Medications: New famotidine Take one tablet twice a day as needed for acid reflux. Stop day before testing 20 mg PO BID PRN 30 tabs 0RF GERD 14 days Coding Level of Care Code Established Pt Est Pt Level 3 (62096) Patient Type Established Diagnoses Gastroesophageal reflux disease without esophagitis K21.9 Esophagitis presence: without esophagitis Chronic constipation K59.09 Fatty liver K76.0 Pure hypercholesterolemia E78.00
[2025-05-19 08:50] VITALS: BP 128/64; PULSE 78; O2SAT 98; BMI 25.8
--- OUTSIDE RECORDS SUMMARY | 2025-05-19 09:11 | XMS_ITS | Clinical Summary ---
Author Organization [employer] Address [address] [facility] [address] [place] [address] Care Team Providers Care College Dean Name Role Phone Unavailable Primary Care Provider [...] Most Recently Relevant to Health Maintenance Insurance [facility] MEDICAID STAND ADULT
--- OUTSIDE RECORDS SUMMARY | 2025-05-19 09:11 | XMS_ITS | Clinical Summary ---
Author Organization [address] [place] [address] Address [address] [place] [address] Phone Care Team Providers Care Backroom Associate Name Role Phone Jovan Mac MD Primary [...] topic Insurance [place] - [place] Care Teams Backroom Associate Relationship Specialty Start Date End Date Jovan Mac MD [address] [place] [address] [facility] JEAN Dean PCP - General Internal Medicine 02/08/19
== END 2025-05-19 09:32 | disposition home or self-care (01) ==
PROVIDERS: PCP Internal Medicine; Visit Provider Nurse Practitioner Family
DX: K21.9 Gastro-esophageal reflux disease without esophagitis (principal); K59.09 Other constipation; K76.0 Fatty (change of) liver, not elsewhere classified; E78.00 Pure hypercholesterolemia, unspecified
CPT/HCPCS: 99213

== ENCOUNTER → 2025-05-19 08:40 | Outpatient (BNVA) | payer OTHER, SELFPAY | PROVIDERS: PCP Internal Medicine; Visit Provider Nurse Practitioner Family | DX: K21.9 Gastro-esophageal reflux disease without esophagitis (principal); K59.09 Other constipation; K76.0 Fatty (change of) liver, not elsewhere classified; E78.00 Pure hypercholesterolemia, unspecified | CPT/HCPCS: 99212 ==

== ENCOUNTER 2025-05-21 09:27 | Outpatient (REF) | payer OTHER, SELFPAY ==
[2025-06-07 10:14] LABS: FIT Date 2 10/25/25
--- OUTSIDE RECORDS SUMMARY | 2025-06-07 10:18 | XMS_ITS | Clinical Summary ---
Author Organization [employer] Address [address] [facility] [address] [place] [address] Care Team Providers Care Plumbing Manager Name Role Phone Unavailable Primary Care Provider [...] Most Recently Relevant to Health Maintenance Insurance [facility] MEDICAID STAND ADULT
--- OUTSIDE RECORDS SUMMARY | 2025-06-07 10:18 | XMS_ITS | Clinical Summary ---
Author Organization [address] [place] [address] Address [address] [place] [address] Phone Care Team Providers Care Wallpaper Embosser Helper Name Role Phone Jovan Mac MD Primary [...] topic Insurance [place] - [place] Care Teams Wallpaper Embosser Helper Relationship Specialty Start Date End Date Jovan Mac MD [address] [place] [address] [facility] JEAN Dean PCP - General Internal Medicine 02/08/19
== END 2025-05-21 09:28 | disposition home or self-care (01) ==
LOC: HO.LNP 09:27
PROVIDERS: Visit Provider Nurse Practitioner Family
DX: K92.1 Melena (principal)
CPT/HCPCS: 82274

== ENCOUNTER 2025-06-06 11:09 | Outpatient (REF) | payer OTHER, SELFPAY | END 2025-06-06 11:10 | disposition home or self-care (01) | LOC: HO.LNP 11:09 | PROVIDERS: PCP Internal Medicine; Visit Provider Nurse Practitioner Family | DX: K21.9 Gastro-esophageal reflux disease without esophagitis (principal) | CPT/HCPCS: 83013; 99211 ==

== ENCOUNTER 2025-06-06 11:09 | Outpatient (AMB) | payer OTHER, SELFPAY ==
--- NOTE | 2025-06-06 11:29 | AM.OFFVISNUR ---
Intake Visit Reasons: H Pylori Breath Test HOLD PPI. Intake Note: Pt presents for H Pylori BT. Protocols reviewed with pt and confirmed to be followed. Pt advised of instructions for the test and began testing at 1130. Testing was concluded at 1145. No questions or additional concerns per pt at the end of testing. Advised pt that we will contact them with results when they are obtained. Remedy Developer Required: No Accompanied by: Self / Same As Patient Allergies methylprednisolone (Methylprednisolone) Allergy (Unknown, Verified 05/18/25 17:09) UNKNOWN Penicillins (PENICILLINS) Allergy (Unknown, Verified 05/18/25 17:09) RASH amitriptyline Adverse Reaction (Unknown, Verified 05/18/25 17:09) increased headaches metoclopramide (From REGLAN) Adverse Reaction (Unknown, Verified 05/18/25 17:09) RASH trazodone Adverse Reaction (Unknown, Verified 05/18/25 17:09) increased headaches Assessment & Plan Assessment & Plan (1) GERD (gastroesophageal reflux disease): Comment: 04/17/23 EGD-esophagitis Code(s): K21.9 - Gastro-esophageal reflux disease without esophagitis Category: Medical Qualifiers: Esophagitis presence: without esophagitis Qualified Code(s): K21.9 - Gastro-esophageal reflux disease without esophagitis (2) Chronic constipation: Code(s): K59.09 - Other constipation Category: Medical (3) Chronic abdominal pain: Code(s): R10.9 - Unspecified abdominal pain; G89.29 - Other chronic pain Category: Medical Coding Level of Care Code Established Pt Procedure Only Patient Type Established Diagnoses Gastroesophageal reflux disease without esophagitis K21.9 Esophagitis presence: without esophagitis Chronic constipation K59.09 Chronic abdominal pain R10.9; G89.29
--- OUTSIDE RECORDS SUMMARY | 2025-06-06 13:29 | XMS_ITS | Clinical Summary ---
Author Organization [address] [place] [address] Address [address] [place] [address] Phone Care Team Providers Care Gang Punch Operator Name Role Phone Jovan Mac MD [...] topic Insurance [place] - [place] Care Teams Gang Punch Operator Relationship Specialty Start Date End Date Jovan Mac MD [address] [place] [address] [facility] JEAN Dean PCP - General Internal Medicine 02/08/19
--- OUTSIDE RECORDS SUMMARY | 2025-06-06 13:29 | XMS_ITS | Clinical Summary ---
Author Organization [employer] Address [address] [facility] [address] [place] [address] Care Team Providers Care Supervisor Elementary Education Name Role Phone Unavailable Primary Care Provider [...] Most Recently Relevant to Health Maintenance Insurance [facility] MEDICAID STAND ADULT
== END 2025-06-06 11:31 | disposition home or self-care (01) ==
PROVIDERS: PCP Internal Medicine; Visit Provider Nurse Practitioner Family
DX: K21.9 Gastro-esophageal reflux disease without esophagitis (principal); K59.09 Other constipation; R10.9 Unspecified abdominal pain; G89.29 Other chronic pain